=== PATIENT | female | born 1950 | race Caucasian/White ===

== ENCOUNTER 2020-04-22 17:29 | Outpatient (RCR) | payer MEDICARE, OTHER, SELFPAY | END 2020-04-22 23:59 | LOC: IMMUN 17:29 | PROVIDERS: PCP Family Medicine; Visit Provider Family Medicine | DX: Z23 Encounter for immunization (principal) | CPT/HCPCS: 0011A; 0012A ==

== ENCOUNTER 2022-08-19 19:55 | Inpatient (IN) | payer MEDICARE, OTHER, SELFPAY ==
[2022-08-19 20:33] VITALS: BP 124/55; PULSE 61; PULSE 62; RESP 20; TEMP 36.4; O2SAT 100; BMI 46.7
--- NOTE | 2022-08-19 22:29 | HP.PCM_ITS ---
[facility] - General General Date of Admission: 08/19/22 Date of Service: 08/20/22 Chief Complaint: Here for rehabilitation. HPI Narrative JORDYN ABEL, is a 71 Female who presents with following. 07/18/2022 Admit to [facility] with abdominal pain, nausea, vomiting. 71 year old female with history of Heart failure with reduced ejection fraction (35%), COPD on 3 liters oxygen, Type 2 Diabetes Mellitus, Mixed Hyperlipidemia, Hypertension, Morbid obesity who was managed at [facility] from 07/18/2022 to 08/18/2022 with an initial complaint of 2.5 months of progressively worsening intractable abdominal pain, nausea, and vomiting occurring postprandial with associated poor appetite/PO intake. CTA abdomen/pelvis revealed occlusion of celiac and SMA concerning for mesenteric ischemia and she underwent subsequent H-laparotomy with SMA thrombectomy. She was managed in the SICU post operation. While in the SICU, she was diagnosed with new onset atrial fibrillation and course was complicated by septic shock found to have Cronobacter sakazakii bacteremia. She was treated with pressors, fluids, and a two week course of IV Meropenem. Additionally, progressed to fluid overload, acidosis, anuria, with acute kidney injury leading to CRRT. Patient was stabilized and transferred to the general medical floor with imp rovement of acute kidney injury. 08/19/2022 Admit to TCU with debility, here for rehabilitation, strengthening, prior to discharge home with . [facility] Medical History (Updated 08/19/22 @ 22:[address] 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 Restless leg syndrome Septic shock Severe pulmonary hypertension Type 2 diabetes mellitus Home Medications albuterol 90 mcg/actuation aerosol inhaler 108 mcg inhalation Q6H PRN SOB, wheezing 08/19/22 [History Last Taken Unknown] allopurinol 100 mg tablet 100 mg PO DAILY Gout 08/19/22 [History Last Taken Unknown] apixaban 5 mg tablet 5 mg PO BID Anticoagulant 08/19/22 [History Last Taken 08/19/22] atorvastatin 40 mg tablet 40 mg PO .qevening Cholesterol 08/19/22 [History Last Taken 08/18/22] cholecalciferol (vitamin D3) 25 mcg (1,000 unit) capsule 25 mcg PO DAILY Supplement 08/19/22 [History Last Taken Unknown] clonazepam 0.5 mg tablet 0.25 mg PO QHS Sleep, anxiety 08/19/22 [History Last Taken 08/18/22] clopidogrel 75 mg tablet 75 mg PO DAILY Anticoagulant 08/19/22 [History Last Taken 08/19/22] ezetimibe 10 mg tablet 10 mg PO .qevening Diabetes 08/19/22 [History Last Taken Unknown] ferrous sulfate 325 mg (65 mg iron) tablet 325 mg PO QODAY Supplement 08/19/22 [History Last Taken 08/19/22] hydralazine 20 mg/mL injection solution 10 mg IV Q6H PRN hypertension 08/19/22 [History Last Taken Unknown] insulin glargine 100 unit/mL (3 mL) subcutaneous pen (Lantus Solostar U-100 Insulin) 10 unit subcut .qAM Diabetes 08/19/22 [History Last Taken 08/19/22] melatonin 3 mg tablet 3 mg PO QHS insomnia 08/19/22 [History Last Taken 08/18/22] metoprolol succinate 50 mg tablet,extended release 24 hr 50 mg PO DAILY Blood pressure 08/19/22 [History Last Taken 08/19/22] midodrine 2.5 mg tablet 2.5 mg PO DAILY PRN low blood pressure 08/19/22 [History Last Taken 08/17/22] nystatin 100,000 unit/gram topical cream 1 applic topical BID excoriation [History Last Taken 08/19/22] pantoprazole 40 mg tablet,delayed release 40 mg PO DAILY Stomach 08/19/22 [History Last Taken 08/19/22] paroxetine HCl 20 mg tablet 20 mg PO DAILY Anxiety 08/19/22 [History Last Taken 08/19/22] ropinirole 0.25 mg tablet 0.75 mg PO BID Restless legs 08/19/22 [History Last Taken 08/19/22] thiamine mononitrate (vit B1) 100 mg tablet 100 mg PO DAILY Supplement 08/19/22 [History Last Taken 08/19/22] tiotropium bromide 18 mcg capsule with inhalation device (Spiriva with HandiHaler) 1 cap inhalation DAILY SOB 08/19/22 [History Last Taken 08/19/22] torsemide 10 mg tablet 10 mg PO DAILY PRN Diuretic 08/19/22 [History Last Taken 08/16/22] Allergy/AdvReac Type Severity Reaction Status Date / Time Penicillins Allergy Hives Verified 04/22/20 09:31 Family History (Updated 08/20/22 @ 07:[address] Lencho Payan MD) Father , Head trauma. No problems noted. Mother , at 93. Diabetes Brother , at 71. Alzheimer disease Sister , at 67 of Stone disease No problems noted. Sister Heart disease Surgical History (Updated 08/19/22 @ 22:[address] Lencho Payan MD) History of laparotomy Social History (Updated 08/19/22 @ 22:[address] Lencho Payan MD) household members: spouse Smoking Status: Former smoker Tobacco: How many years used: 30 how long ago did patient quit smokin alcohol intake: never substance use type: does not use ROS Constitutional Constitutional: Denies chills, fever(s) or weight gain ENT HEENT: Denies headache(s), nasal congestion or nasal discharge Cardiovascular Cardiovascular: Denies chest pain or palpitations Respiratory/Chest Respiratory/Chest: Denies cough, excessive phlegm production or shortness of breath with exertion Gastrointestinal Gastrointestinal: Denies abdominal pain, nausea or vomiting Genitourinary Genitourinary: Denies dysuria Musculoskeletal Musculoskeletal: Denies joint pain or joint swelling Integumentary Integumentary: Denies rash or wounds Neurologic Neurologic: Denies focal weakness, numbness or tingling Psychiatric Psychiatric: Denies anxiety, auditory hallucinations, depression, homicidal ideation or suicidal ideation Physical Exam Const alert General Appearance: cooperative HEENT normocephalic Eyes PERRL and EOMs intact bilaterally Neck supple, no JVD and no carotid bruits Resp normal respiratory effort, normal air movement and clear to auscultation bilaterally Cardio regular rate and regular rhythm GI normal to inspection, nondistended, normoactive bowel sounds, non-tender and non-distended GI Narrative: Midline incision clean, dry, intact. Extremity normal capillary refill General Extremity: Negative for edema Skin no rashes or lesions noted General Skin Exam: no breakdown Psych affect normal Appearance: appropriate Results Lab / Micro Data 08/20/22 05:15 08/20/22 05:15 Assessment & Plan Assessment/Plan (1) Debility: (2) Mesenteric ischemia: (3) Occlusion of celiac artery: (4) Occlusion of superior mesenteric artery: (5) New onset atrial fibrillation: (6) Heart failure with reduced ejection fraction: (7) Septic shock: (8) Acute kidney injury: (9) Bacteremia: (10) Depression: (11) Restless leg syndrome: (12) Dyskinesia: (13) COPD (chronic obstructive pulmonary disease): (14) Obstructive sleep apnea: (15) Severe pulmonary hypertension: (16) Anemia in chronic kidney disease: (17) Essential (primary) hypertension: (18) Hyperlipidemia: (19) Type 2 diabetes mellitus: (20) Gout: (21) GERD (gastroesophageal reflux disease): PLAN: Plan 71 year old female with below past medical history hospitalized for mesenteric ischemia status post celiac/SMA thrombectomy, complicated by new onset atrial fibrillation, septic shock, bacteremia, acute kidney injury requiring CRRT, admitted to TCU with debility, here for rehabilitation, strengthening, prior to discharge home with . * Debility - PT/OT. * Pain - Tylenol 1000mg q6h prn pain (1-10). * Bowel - senna/colace 1 tablet bid, Magnesium citrate 300ml po x 1 prn. * Adult immunization - Administer pneumonia vaccine, covid19 vaccine, flu vaccine as appropriate. * DVT prophylaxis - on Eliquis. * COPD - Incruse 1 puff daily, Albuterol 1 puff q6h prn. * Gout - Allopurinol 100mg daily. * Atrial fibrillation - Metoprolol succinate 50mg daily, Eliquis 5mg bid. * Hyperlipidemia - Atorvastatin 40mg qhs, Zetia 10mg qhs. * Anxiety - Clonazepam 0.25mg qhs thru 08/21/2022, GDR. * PAOD - Plavix 75mg daily, Eliquis 5mg bid. * Iron deficiency anemia - Ferrous sulfate 325mg every other day. * Heart failure with reduced ejection fraction (35%) - Metoprolol succinate 50mg daily, Furosemide 20mg daily prn. * Diabetes Mellius II - Glargine 10 units daily. * Insomnia - Melatonin 3mg qhs. * Hypotension - Midodrine 2.5mg daily prn SBP < 100. * Tinea Corporis - Nystatin topical bid. * GERD - Pantoprazole 40mg daily. * Depression - Paroxetine 20mg daily, stable chronic residential use, GDR not recommended. * Restless leg syndrome - Mirapex 0.375mg bid. * Thiamine deficiency - Thiamine 100mg daily. * Vitamin D deficiency - D3 25mcg daily.
[2022-08-19] MEDS: clonazePAM 0.5 MG Tablet 0.25 MG PO (23:05)
[2022-08-19] MEDS: Ezetimibe 10 MG Tablet PO (23:06)
[2022-08-19] MEDS: Atorvastatin Calcium 40 MG Tablet PO (23:06)
[2022-08-19] MEDS: MELATONIN 3 MG TABLET PO (23:06)
[2022-08-19 23:40] LABS: Bedside Glucose 108 mg/dL (74-106)
--- NOTE | 2022-08-20 01:33 | NURSING ---
Pt arrived 08/19/22 @ 1954 accompanied by x2 EMS transport on 4L O2. Vitals WNL. Pt A&O x3, oriented to unit and paper work completed. States she would like her code status to be a DNRCC-A, No intubation.
[2022-08-20 06:00] LABS: Absolute Lymphocyte Count 1.03 X10^3/uL (0.83-4.51); Absolute Neutrophil Count 3.7 X10^3/uL (2.0-7.7); Basophil# 0.04 X10^3/uL; Basophil% 0.7 % (0-1); Eosinophil# 0.11 X10^3/uL; Hematocrit 26.8 % (37-47); Lymphocyte # 1.03 X10^3/ul (0.83-4.51); Lymphocyte % 18.3 % (19-41); Mean Corp Hgb Conc 29.9 g/dL (32-36); Mean Corpuscular Hgb 29.5 pg (27.0-32.0); Mean Corpuscular Volume 98.9 fL (81-99); Mean Platelet Vol. 10.4 fl (6.2-12.0); Monocyte# 0.74 X10^3/uL; Monocyte% 13.2 % (0-10); NRBC Flagged by Analyzer 0 % (0-5); Neutrophil # 3.68 X10^3/uL (2.7-7.7); Neutrophil % 65.4 % (47-70); POSITIVE MORPHOLOGY YES; Platelet Count 287 K/mm3 (150-450); RBC Distribution Width CV 20.5 % (11.6-14.6); RBC Distribution Width SD 71.6 fl (35.1-43.9); Red Blood Count 2.71 M/mm3 (4.2-5.4); White Blood Count 5.6 K/mm3 (4.4-11.0)
[2022-08-20 06:05] LABS: Differential Indicated SCAN CRITERIA MET
[2022-08-20 06:28] LABS: Bedside Glucose 114 mg/dL (74-106)
[2022-08-20 06:34] LABS: Anisocytosis 2+; Polychromasia 1+
[2022-08-20] MEDS: Allopurinol 100 MG Tablet PO (06:37)
[2022-08-20] MEDS: Cholecalciferol (VIT D3) 25 MCG TABLET (1,000 UNITS) PO (06:37)
[2022-08-20 06:38] VITALS: BP 128/44; PULSE 68
[2022-08-20] MEDS: Senna/Docusate Sodium 1 Tablet PO ×2 (06:38→17:19)
[2022-08-20] MEDS: Pantoprazole Sodium 40 MG Tablet PO (06:38)
[2022-08-20] MEDS: Pramipexole Di-HCl 0.25 MG Tablet 0.375 MG PO ×2 (06:38→17:19)
[2022-08-20] MEDS: Clopidogrel Bisulfate 75 MG Tablet PO (06:38)
[2022-08-20] MEDS: Paroxetine 20 MG Tablet PO (06:38)
[2022-08-20] MEDS: Metoprolol(XL)Succ 50 MG Tablet PO (06:38)
[2022-08-20] MEDS: Insulin Glargine-YFGN 100 UNIT/ML Pen 10 UNIT SC (06:39)
[2022-08-20] MEDS: Umeclidinium Bromide Inhaler 1 PUFF INHALATION (06:39)
[2022-08-20] MEDS: APIXABAN 5 MG TABLET PO ×2 (06:39→17:20)
[2022-08-20 06:41] LABS: Anion Gap 5 (5-15); BUN 37 mg/dL (7-18); BUN/Creat Ratio 26.6 RATIO (10-20); Calcium,Total 8.2 mg/dL (8.5-10.1); Chloride 111 mmol/L (98-107); Creatinine, Serum 1.39 mg/dL (0.55-1.02); EST Glomerular Filtration Rate 39 mL/min (>60); Est Glom Filt Rate - Afr Amer 48 mL/min (>60); Estimated Creatinine Clearance 28.51 ml/min; Glucose 111 mg/dL (74-106); Potassium 3.5 mmol/L (3.5-5.1); Sodium Level 143 mmol/L (136-145)
[2022-08-20 06:57] VITALS: BP 128/44; PULSE 68
[2022-08-20] MEDS: Thiamine Hydrochloride 100 MG Tablet PO (08:55)
[2022-08-20] MEDS: Nystatin Ointment 1 APPLIC TOPICAL ×2 (08:57→17:21)
[2022-08-20] MEDS: Tuberculin,Purif.prot.deriv. 50 TU/ML Vial 0.1 ML ID (09:05)
[2022-08-20 11:45] LABS: Bedside Glucose 165 mg/dL (74-106)
--- NOTE | 2022-08-20 12:17 | CASEMGMT ---
Social Work Met with patient to complete initial assessment. Introduced self and role. Discussed code status and MOLST form. Pt confirmed DNR_CCA, no intubation. MOLST form placed in Dr folder. Pt agreeable to have provide copies of advanced directives. Educated to Medicare benefit. Encouraged to contact secondary insurance to ensure copay coverage. Pt's goal is to return home with at [facility]. SW to continue to follow for DC planning. Laury Robert, SPECIMEN TECHNICIAN PLASTER BLOCK LAYER
--- NOTE | 2022-08-20 14:28 | WOUNDNOTE ---
wound photo: abdomen
[2022-08-20 15:16] VITALS: BP 106/67; PULSE 69; RESP 16; TEMP 36.5; O2SAT 94
[2022-08-20 16:27] LABS: Bedside Glucose 153 mg/dL (74-106)
[2022-08-20 20:55] VITALS: PULSE 68; RESP 18
[2022-08-20] MEDS: clonazePAM 0.5 MG Tablet 0.25 MG PO (21:36)
[2022-08-20] MEDS: Ezetimibe 10 MG Tablet PO (21:37)
[2022-08-20] MEDS: Atorvastatin Calcium 40 MG Tablet PO (21:37)
[2022-08-20] MEDS: MELATONIN 3 MG TABLET PO (21:37)
[2022-08-20 22:00] LABS: Bedside Glucose 129 mg/dL (74-106)
[2022-08-21 06:09] LABS: Absolute Lymphocyte Count 1.12 X10^3/uL (0.83-4.51); Basophil# 0.03 X10^3/uL; Basophil% 0.5 % (0-1); Eosinophil# 0.13 X10^3/uL; Eosinophils% 2.1 % (0-5); Hemoglobin 8.2 g/dL (12.0-15.0); Lymphocyte # 1.12 X10^3/ul (0.83-4.51); Lymphocyte % 18.4 % (19-41); Mean Corp Hgb Conc 30.4 g/dL (32-36); Mean Corpuscular Hgb 29.8 pg (27.0-32.0); Mean Corpuscular Volume 98.2 fL (81-99); Mean Platelet Vol. 10.8 fl (6.2-12.0); Monocyte# 0.76 X10^3/uL; Monocyte% 12.5 % (0-10); NRBC Flagged by Analyzer 0 % (0-5); Neutrophil # 4.01 X10^3/uL (2.7-7.7); POSITIVE MORPHOLOGY YES; Platelet Count 307 K/mm3 (150-450); RBC Distribution Width CV 19.7 % (11.6-14.6); RBC Distribution Width SD 69.7 fl (35.1-43.9); Red Blood Count 2.75 M/mm3 (4.2-5.4); White Blood Count 6.1 K/mm3 (4.4-11.0)
[2022-08-21 06:16] LABS: Differential Indicated SCAN CRITERIA MET
[2022-08-21] MEDS: Pramipexole Di-HCl 0.25 MG Tablet 0.375 MG PO ×2 (06:17→17:25)
[2022-08-21 06:18] VITALS: BP 123/46; PULSE 66
[2022-08-21] MEDS: Metoprolol(XL)Succ 50 MG Tablet PO (06:18)
[2022-08-21] MEDS: Senna/Docusate Sodium 1 Tablet PO ×2 (06:18→17:24)
[2022-08-21] MEDS: Cholecalciferol (VIT D3) 25 MCG TABLET (1,000 UNITS) PO (06:18)
[2022-08-21] MEDS: Paroxetine 20 MG Tablet PO (06:19)
[2022-08-21] MEDS: Pantoprazole Sodium 40 MG Tablet PO (06:19)
[2022-08-21] MEDS: APIXABAN 5 MG TABLET PO ×2 (06:19→17:24)
[2022-08-21] MEDS: Allopurinol 100 MG Tablet PO (06:19)
[2022-08-21] MEDS: Clopidogrel Bisulfate 75 MG Tablet PO (06:19)
[2022-08-21] MEDS: Umeclidinium Bromide Inhaler 1 PUFF INHALATION (06:19)
[2022-08-21] MEDS: Insulin Glargine-YFGN 100 UNIT/ML Pen 10 UNIT SC (06:19)
[2022-08-21] MEDS: Nystatin Ointment 1 APPLIC TOPICAL ×2 (06:20→17:25)
[2022-08-21 06:40] LABS: Anion Gap 4 (5-15); BUN 40 mg/dL (7-18); BUN/Creat Ratio 26.3 RATIO (10-20); Calcium,Total 8.2 mg/dL (8.5-10.1); Chloride 108 mmol/L (98-107); Creatinine, Serum 1.52 mg/dL (0.55-1.02); EST Glomerular Filtration Rate 36 mL/min (>60); Est Glom Filt Rate - Afr Amer 43 mL/min (>60); Estimated Creatinine Clearance 26.07 ml/min; Glucose 138 mg/dL (74-106); Potassium 3.7 mmol/L (3.5-5.1); Sodium Level 142 mmol/L (136-145)
[2022-08-21 06:42] LABS: Bedside Glucose 126 mg/dL (74-106)
[2022-08-21 06:55] VITALS: BP 123/46; PULSE 66
[2022-08-21 07:09] LABS: Anisocytosis 1+; Stomatocyte 1+
[2022-08-21] MEDS: Ferrous Sulfate 325 MG Tablet PO (07:55)
[2022-08-21] MEDS: Thiamine Hydrochloride 100 MG Tablet PO (07:55)
--- NOTE | 2022-08-21 08:47 | WOUNDNOTE ---
wound photo: right foot
--- NOTE | 2022-08-21 08:48 | WOUNDNOTE ---
wound photo: right foot
[2022-08-21 12:37] LABS: Bedside Glucose 134 mg/dL (74-106)
--- NOTE | 2022-08-21 12:42 | NS ---
Res does not have any food dislikes. Provided written copy of daily specials/first choice menu w/ instructions on how to order. MST score =2 d/t unknown UBW.
[2022-08-21 14:47] VITALS: PULSE 67; RESP 18; O2SAT 97
[2022-08-21 16:00] VITALS: BP 131/42; PULSE 68; RESP 18; TEMP 36.3; O2SAT 98
[2022-08-21 16:48] LABS: Bedside Glucose 109 mg/dL (74-106)
[2022-08-21] MEDS: clonazePAM 0.5 MG Tablet 0.25 MG PO (21:51)
[2022-08-21] MEDS: Ezetimibe 10 MG Tablet PO (21:53)
[2022-08-21] MEDS: Atorvastatin Calcium 40 MG Tablet PO (21:53)
[2022-08-21] MEDS: MELATONIN 3 MG TABLET PO (21:53)
--- NOTE | 2022-08-21 22:32 | NURSING ---
Abdominal wound dressing changed per order. Pt tolerated well.
[2022-08-21 23:27] LABS: Bedside Glucose 152 mg/dL (74-106)
[2022-08-22 06:15] VITALS: BP 130/50; PULSE 68
[2022-08-22] MEDS: Metoprolol(XL)Succ 50 MG Tablet PO (06:15)
[2022-08-22] MEDS: Cholecalciferol (VIT D3) 25 MCG TABLET (1,000 UNITS) PO (06:16)
[2022-08-22] MEDS: Clopidogrel Bisulfate 75 MG Tablet PO (06:16)
[2022-08-22] MEDS: Paroxetine 20 MG Tablet PO (06:16)
[2022-08-22] MEDS: Senna/Docusate Sodium 1 Tablet PO ×2 (06:16→17:00)
[2022-08-22] MEDS: Pantoprazole Sodium 40 MG Tablet PO (06:16)
[2022-08-22] MEDS: APIXABAN 5 MG TABLET PO ×2 (06:16→17:00)
[2022-08-22] MEDS: Pramipexole Di-HCl 0.25 MG Tablet 0.375 MG PO ×2 (06:16→17:01)
[2022-08-22] MEDS: Umeclidinium Bromide Inhaler 1 PUFF INHALATION (06:19)
[2022-08-22] MEDS: Nystatin Ointment 1 APPLIC TOPICAL ×2 (06:21→17:05)
[2022-08-22] MEDS: Insulin Glargine-YFGN 100 UNIT/ML Pen 10 UNIT SC (06:22)
[2022-08-22 06:24] LABS: Bedside Glucose 142 mg/dL (74-106)
[2022-08-22 06:57] LABS: Absolute Lymphocyte Count 1.05 X10^3/uL (0.83-4.51); Absolute Neutrophil Count 4.1 X10^3/uL (2.0-7.7); Basophil# 0.03 X10^3/uL; Basophil% 0.5 % (0-1); Eosinophil# 0.14 X10^3/uL; Eosinophils% 2.3 % (0-5); Hematocrit 27.3 % (37-47); Hemoglobin 7.9 g/dL (12.0-15.0); Lymphocyte # 1.05 X10^3/ul (0.83-4.51); Mean Corp Hgb Conc 28.9 g/dL (32-36); Mean Corpuscular Volume 100.4 fL (81-99); Monocyte# 0.87 X10^3/uL; Monocyte% 14.1 % (0-10); NRBC Flagged by Analyzer 0 % (0-5); Neutrophil # 4.05 X10^3/uL (2.7-7.7); Neutrophil % 65.6 % (47-70); POSITIVE MORPHOLOGY YES; Platelet Count 299 K/mm3 (150-450); RBC Distribution Width SD 68.9 fl (35.1-43.9); Red Blood Count 2.72 M/mm3 (4.2-5.4); White Blood Count 6.2 K/mm3 (4.4-11.0)
[2022-08-22 07:06] LABS: Differential Indicated SCAN CRITERIA MET
[2022-08-22 07:19] LABS: Anion Gap 5 (5-15); BUN 39 mg/dL (7-18); BUN/Creat Ratio 26.2 RATIO (10-20); Calcium,Total 8.6 mg/dL (8.5-10.1); Chloride 109 mmol/L (98-107); Creatinine, Serum 1.49 mg/dL (0.55-1.02); EST Glomerular Filtration Rate 36 mL/min (>60); Est Glom Filt Rate - Afr Amer 44 mL/min (>60); Glucose 147 mg/dL (74-106); Potassium 3.8 mmol/L (3.5-5.1); Sodium Level 141 mmol/L (136-145)
[2022-08-22] MEDS: Thiamine Hydrochloride 100 MG Tablet PO (08:16)
[2022-08-22] MEDS: Allopurinol 100 MG Tablet PO (08:17)
[2022-08-22 09:29] LABS: Anisocytosis 2+; Differential Comment SCANNED; Macrocytosis 1+; Microcytosis 1+
[2022-08-22 11:59] LABS: Bedside Glucose 133 mg/dL (74-106)
[2022-08-22 13:50] VITALS: BP 124/54; PULSE 68; RESP 16; TEMP 36.3; O2SAT 96
[2022-08-22 16:36] LABS: Bedside Glucose 137 mg/dL (74-106)
[2022-08-22] MEDS: Ezetimibe 10 MG Tablet PO (20:33)
[2022-08-22] MEDS: Atorvastatin Calcium 40 MG Tablet PO (20:34)
[2022-08-22] MEDS: MELATONIN 3 MG TABLET PO (20:34)
[2022-08-22 21:00] VITALS: O2SAT 94
[2022-08-22 21:56] LABS: Bedside Glucose 145 mg/dL (74-106)
[2022-08-23 05:01] LABS: Absolute Lymphocyte Count 1.14 X10^3/uL (0.83-4.51); Absolute Neutrophil Count 3.3 X10^3/uL (2.0-7.7); Basophil# 0.03 X10^3/uL; Basophil% 0.6 % (0-1); Eosinophil# 0.12 X10^3/uL; Eosinophils% 2.3 % (0-5); Hemoglobin 7.7 g/dL (12.0-15.0); Lymphocyte # 1.14 X10^3/ul (0.83-4.51); Lymphocyte % 21.6 % (19-41); Mean Corp Hgb Conc 28.5 g/dL (32-36); Mean Corpuscular Hgb 29.1 pg (27.0-32.0); Mean Corpuscular Volume 101.9 fL (81-99); Mean Platelet Vol. 10.8 fl (6.2-12.0); Monocyte# 0.66 X10^3/uL; Monocyte% 12.5 % (0-10); NRBC Flagged by Analyzer 0 % (0-5); Neutrophil % 62.4 % (47-70); POSITIVE MORPHOLOGY YES; Platelet Count 284 K/mm3 (150-450); RBC Distribution Width CV 18.6 % (11.6-14.6); RBC Distribution Width SD 69.3 fl (35.1-43.9); Red Blood Count 2.65 M/mm3 (4.2-5.4); White Blood Count 5.3 K/mm3 (4.4-11.0)
[2022-08-23 05:02] LABS: Differential Indicated SCAN CRITERIA MET
[2022-08-23 05:16] LABS: Anion Gap 6 (5-15); BUN 38 mg/dL (7-18); BUN/Creat Ratio 27.9 RATIO (10-20); Calcium,Total 8.5 mg/dL (8.5-10.1); Chloride 112 mmol/L (98-107); Creatinine, Serum 1.36 mg/dL (0.55-1.02); EST Glomerular Filtration Rate 40 mL/min (>60); Est Glom Filt Rate - Afr Amer 49 mL/min (>60); Estimated Creatinine Clearance 29.14 ml/min; Glucose 142 mg/dL (74-106); Potassium 3.7 mmol/L (3.5-5.1); Sodium Level 143 mmol/L (136-145)
[2022-08-23] MEDS: Umeclidinium Bromide Inhaler 1 PUFF INHALATION (05:46)
[2022-08-23] MEDS: Pramipexole Di-HCl 0.25 MG Tablet 0.375 MG PO ×2 (05:47→17:13)
[2022-08-23 05:48] VITALS: BP 137/51; PULSE 66
[2022-08-23] MEDS: Cholecalciferol (VIT D3) 25 MCG TABLET (1,000 UNITS) PO (05:48)
[2022-08-23] MEDS: Metoprolol(XL)Succ 50 MG Tablet PO (05:48)
[2022-08-23] MEDS: APIXABAN 5 MG TABLET PO ×2 (05:48→17:13)
[2022-08-23] MEDS: Paroxetine 20 MG Tablet PO (05:48)
[2022-08-23] MEDS: Clopidogrel Bisulfate 75 MG Tablet PO (05:49)
[2022-08-23] MEDS: Senna/Docusate Sodium 1 Tablet PO ×2 (05:49→17:14)
[2022-08-23] MEDS: Pantoprazole Sodium 40 MG Tablet PO (05:49)
[2022-08-23 05:51] LABS: Anisocytosis 2+; Macrocytosis 1+
[2022-08-23 05:52] LABS: Polychromasia RARE
[2022-08-23] MEDS: Insulin Glargine-YFGN 100 UNIT/ML Pen 10 UNIT SC (05:54)
[2022-08-23] MEDS: Nystatin Ointment 1 APPLIC TOPICAL ×2 (05:58→17:14)
[2022-08-23 06:14] LABS: Bedside Glucose 145 mg/dL (74-106)
[2022-08-23] MEDS: Allopurinol 100 MG Tablet PO (08:34)
[2022-08-23] MEDS: Thiamine Hydrochloride 100 MG Tablet PO (08:34)
[2022-08-23] MEDS: Ferrous Sulfate 325 MG Tablet PO (08:34)
[2022-08-23] MEDS: Acetaminophen 500 MG Tablet 1000 MG PO (09:38)
[2022-08-23 11:33] LABS: Bedside Glucose 150 mg/dL (74-106)
[2022-08-23 14:46] VITALS: BP 132/58; PULSE 65; RESP 18; TEMP 36.2; O2SAT 92
[2022-08-23 16:22] LABS: Bedside Glucose 126 mg/dL (74-106)
[2022-08-23 21:51] LABS: Bedside Glucose 135 mg/dL (74-106)
[2022-08-23] MEDS: Atorvastatin Calcium 40 MG Tablet PO (22:18)
[2022-08-23] MEDS: Ezetimibe 10 MG Tablet PO (22:18)
[2022-08-23] MEDS: MELATONIN 3 MG TABLET PO (22:18)
[2022-08-24] MEDS: Umeclidinium Bromide Inhaler 1 PUFF INHALATION (05:25)
[2022-08-24] MEDS: Pramipexole Di-HCl 0.25 MG Tablet 0.375 MG PO ×2 (05:26→18:12)
[2022-08-24] MEDS: Cholecalciferol (VIT D3) 25 MCG TABLET (1,000 UNITS) PO (05:26)
[2022-08-24 05:27] VITALS: BP 123/54; PULSE 69
[2022-08-24] MEDS: Paroxetine 20 MG Tablet PO (05:27)
[2022-08-24] MEDS: Metoprolol(XL)Succ 50 MG Tablet PO (05:27)
[2022-08-24] MEDS: APIXABAN 5 MG TABLET PO ×2 (05:27→18:12)
[2022-08-24] MEDS: Pantoprazole Sodium 40 MG Tablet PO (05:27)
[2022-08-24] MEDS: Clopidogrel Bisulfate 75 MG Tablet PO (05:27)
[2022-08-24] MEDS: Senna/Docusate Sodium 1 Tablet PO ×2 (05:27→18:12)
[2022-08-24] MEDS: Nystatin Ointment 1 APPLIC TOPICAL ×2 (05:29→18:14)
[2022-08-24 05:44] LABS: Absolute Lymphocyte Count 1.08 X10^3/uL (0.83-4.51); Absolute Neutrophil Count 3.5 X10^3/uL (2.0-7.7); Basophil# 0.04 X10^3/uL; Basophil% 0.7 % (0-1); Eosinophil# 0.15 X10^3/uL; Eosinophils% 2.7 % (0-5); Hematocrit 25.2 % (37-47); Hemoglobin 7.6 g/dL (12.0-15.0); Lymphocyte # 1.08 X10^3/ul (0.83-4.51); Lymphocyte % 19.6 % (19-41); Mean Corp Hgb Conc 30.2 g/dL (32-36); Mean Corpuscular Hgb 29.8 pg (27.0-32.0); Mean Corpuscular Volume 98.8 fL (81-99); Mean Platelet Vol. 10.8 fl (6.2-12.0); Monocyte# 0.69 X10^3/uL; Monocyte% 12.5 % (0-10); NRBC Flagged by Analyzer 0 % (0-5); Neutrophil # 3.53 X10^3/uL (2.7-7.7); Neutrophil % 64.3 % (47-70); Platelet Count 282 K/mm3 (150-450); RBC Distribution Width CV 18.3 % (11.6-14.6); RBC Distribution Width SD 64.6 fl (35.1-43.9); Red Blood Count 2.55 M/mm3 (4.2-5.4); White Blood Count 5.5 K/mm3 (4.4-11.0)
[2022-08-24 06:00] VITALS: BMI 47.3
[2022-08-24 06:12] LABS: Anion Gap 5 (5-15); BUN 36 mg/dL (7-18); BUN/Creat Ratio 26.9 RATIO (10-20); Calcium,Total 8.7 mg/dL (8.5-10.1); Chloride 110 mmol/L (98-107); Creatinine, Serum 1.34 mg/dL (0.55-1.02); EST Glomerular Filtration Rate 41 mL/min (>60); Est Glom Filt Rate - Afr Amer 50 mL/min (>60); Estimated Creatinine Clearance 29.57 ml/min; Glucose 138 mg/dL (74-106); Sodium Level 142 mmol/L (136-145)
[2022-08-24] MEDS: Insulin Glargine-YFGN 100 UNIT/ML Pen 10 UNIT SC (06:13)
[2022-08-24 06:40] LABS: Bedside Glucose 143 mg/dL (74-106)
[2022-08-24] MEDS: Allopurinol 100 MG Tablet PO (09:27)
[2022-08-24] MEDS: Thiamine Hydrochloride 100 MG Tablet PO (09:27)
[2022-08-24 11:35] LABS: Bedside Glucose 150 mg/dL (74-106)
--- NOTE | 2022-08-24 12:15 | NURSING ---
Audiovisual Equipment Operator Note; Activity Asset: Nargis Tam is independent in her choice of daily activities. When not visiting w/her family and friends she is resting, reading or watching tv. She welcomes visit from the therapy dog when able. At this time she prefers to do in room activities. Staff will continue to offer her group and in dependent activities and respect her right to say No.
--- NOTE | 2022-08-24 12:41 | NURSING ---
Offered covid BV booster, education on vaccine provided. Patient refuses at this time.
[2022-08-24 12:42] VITALS: O2SAT 95
[2022-08-24 14:22] VITALS: BP 122/20; PULSE 65; RESP 18; TEMP 36.1; O2SAT 100
--- NOTE | 2022-08-24 15:05 | WOUNDNOTE ---
wound photo: abdomen
[2022-08-24 16:51] LABS: Bedside Glucose 154 mg/dL (74-106)
[2022-08-24 20:30] VITALS: PULSE 74; RESP 20; O2SAT 96
[2022-08-24] MEDS: MELATONIN 3 MG TABLET PO (21:47)
[2022-08-24] MEDS: Ezetimibe 10 MG Tablet PO (21:47)
[2022-08-24] MEDS: Atorvastatin Calcium 40 MG Tablet PO (21:47)
[2022-08-24 22:44] LABS: Bedside Glucose 144 mg/dL (74-106)
[2022-08-25] MEDS: Cholecalciferol (VIT D3) 25 MCG TABLET (1,000 UNITS) PO (05:15)
[2022-08-25] MEDS: APIXABAN 5 MG TABLET PO ×2 (05:15→18:40)
[2022-08-25] MEDS: Clopidogrel Bisulfate 75 MG Tablet PO (05:15)
[2022-08-25] MEDS: Paroxetine 20 MG Tablet PO (05:15)
[2022-08-25 05:16] VITALS: BP 136/44; PULSE 67
[2022-08-25] MEDS: Pramipexole Di-HCl 0.25 MG Tablet 0.375 MG PO ×2 (05:16→18:40)
[2022-08-25] MEDS: Metoprolol(XL)Succ 50 MG Tablet PO (05:16)
[2022-08-25] MEDS: Senna/Docusate Sodium 1 Tablet PO ×2 (05:16→18:40)
[2022-08-25] MEDS: Pantoprazole Sodium 40 MG Tablet PO (05:16)
[2022-08-25] MEDS: Umeclidinium Bromide Inhaler 1 PUFF INHALATION (05:19)
[2022-08-25] MEDS: Insulin Glargine-YFGN 100 UNIT/ML Pen 10 UNIT SC (05:19)
[2022-08-25] MEDS: Nystatin Ointment 1 APPLIC TOPICAL ×2 (05:24→18:42)
[2022-08-25 05:48] LABS: Bedside Glucose 124 mg/dL (74-106)
[2022-08-25 06:00] VITALS: BMI 46.7
[2022-08-25 06:11] LABS: Absolute Lymphocyte Count 1.23 X10^3/uL (0.83-4.51); Absolute Neutrophil Count 3.1 X10^3/uL (2.0-7.7); Basophil# 0.04 X10^3/uL; Basophil% 0.7 % (0-1); Eosinophil# 0.15 X10^3/uL; Eosinophils% 2.8 % (0-5); Hematocrit 25.1 % (37-47); Hemoglobin 7.3 g/dL (12.0-15.0); Lymphocyte # 1.23 X10^3/ul (0.83-4.51); Mean Corp Hgb Conc 29.1 g/dL (32-36); Mean Corpuscular Volume 99.6 fL (81-99); Mean Platelet Vol. 11.1 fl (6.2-12.0); Monocyte# 0.75 X10^3/uL; NRBC Flagged by Analyzer 0 % (0-5); Neutrophil # 3.14 X10^3/uL (2.7-7.7); Neutrophil % 58.9 % (47-70); POSITIVE MORPHOLOGY YES; Platelet Count 282 K/mm3 (150-450); RBC Distribution Width CV 17.9 % (11.6-14.6); RBC Distribution Width SD 65.3 fl (35.1-43.9); Red Blood Count 2.52 M/mm3 (4.2-5.4); White Blood Count 5.3 K/mm3 (4.4-11.0)
[2022-08-25 06:42] LABS: Anion Gap 4 (5-15); BUN 36 mg/dL (7-18); BUN/Creat Ratio 27.9 RATIO (10-20); Calcium,Total 8.7 mg/dL (8.5-10.1); Chloride 111 mmol/L (98-107); Creatinine, Serum 1.29 mg/dL (0.55-1.02); EST Glomerular Filtration Rate 43 mL/min (>60); Est Glom Filt Rate - Afr Amer 52 mL/min (>60); Estimated Creatinine Clearance 30.72 ml/min; Glucose 126 mg/dL (74-106); Potassium 3.9 mmol/L (3.5-5.1); Sodium Level 142 mmol/L (136-145)
[2022-08-25 07:07] LABS: Differential Indicated SCAN CRITERIA MET
[2022-08-25 09:13] LABS: Anisocytosis 2+; Differential Comment SCANNED; Hypochromasia 1+; Macrocytosis 1+; Microcytosis 1+
[2022-08-25] MEDS: Thiamine Hydrochloride 100 MG Tablet PO (09:13)
[2022-08-25] MEDS: Allopurinol 100 MG Tablet PO (09:13)
[2022-08-25] MEDS: Ferrous Sulfate 325 MG Tablet PO (09:13)
[2022-08-25 11:50] LABS: Bedside Glucose 149 mg/dL (74-106)
[2022-08-25 14:20] VITALS: BP 140/56; PULSE 76; RESP 16; TEMP 36.4; O2SAT 94
[2022-08-25 17:43] LABS: Bedside Glucose 120 mg/dL (74-106)
[2022-08-25] MEDS: Furosemide 20 MG Tablet PO (18:40)
[2022-08-25] MEDS: Atorvastatin Calcium 40 MG Tablet PO (21:55)
[2022-08-25] MEDS: Ezetimibe 10 MG Tablet PO (21:55)
[2022-08-25] MEDS: MELATONIN 3 MG TABLET PO (21:55)
[2022-08-25 22:58] LABS: Bedside Glucose 122 mg/dL (74-106)
[2022-08-26] MEDS: Umeclidinium Bromide Inhaler 1 PUFF INHALATION (05:14)
[2022-08-26] MEDS: Pramipexole Di-HCl 0.25 MG Tablet 0.375 MG PO ×2 (05:15→17:26)
[2022-08-26] MEDS: Pantoprazole Sodium 40 MG Tablet PO (05:16)
[2022-08-26] MEDS: Cholecalciferol (VIT D3) 25 MCG TABLET (1,000 UNITS) PO (05:16)
[2022-08-26] MEDS: Clopidogrel Bisulfate 75 MG Tablet PO (05:16)
[2022-08-26] MEDS: Senna/Docusate Sodium 1 Tablet PO ×2 (05:16→17:26)
[2022-08-26] MEDS: APIXABAN 5 MG TABLET PO ×2 (05:16→17:26)
[2022-08-26] MEDS: Paroxetine 20 MG Tablet PO (05:16)
[2022-08-26 05:17] VITALS: BP 119/50; PULSE 72
[2022-08-26] MEDS: Metoprolol(XL)Succ 50 MG Tablet PO (05:17)
[2022-08-26 05:50] LABS: Absolute Neutrophil Count 3.6 X10^3/uL (2.0-7.7); Basophil# 0.03 X10^3/uL; Basophil% 0.5 % (0-1); Eosinophil# 0.15 X10^3/uL; Eosinophils% 2.6 % (0-5); Hematocrit 23.8 % (37-47); Hemoglobin 7.3 g/dL (12.0-15.0); Lymphocyte % 21.1 % (19-41); Mean Corp Hgb Conc 30.7 g/dL (32-36); Mean Corpuscular Hgb 29.9 pg (27.0-32.0); Mean Corpuscular Volume 97.5 fL (81-99); Monocyte# 0.64 X10^3/uL; Monocyte% 11.3 % (0-10); NRBC Flagged by Analyzer 0 % (0-5); Neutrophil # 3.64 X10^3/uL (2.7-7.7); Neutrophil % 64.1 % (47-70); Platelet Count 272 K/mm3 (150-450); Red Blood Count 2.44 M/mm3 (4.2-5.4); White Blood Count 5.7 K/mm3 (4.4-11.0)
[2022-08-26 06:00] VITALS: BMI 46.7
[2022-08-26] MEDS: Insulin Glargine-YFGN 100 UNIT/ML Pen 10 UNIT SC (06:39)
[2022-08-26 06:42] LABS: Anion Gap 4 (5-15); BUN 36 mg/dL (7-18); BUN/Creat Ratio 28.3 RATIO (10-20); Calcium,Total 9.1 mg/dL (8.5-10.1); Chloride 109 mmol/L (98-107); Creatinine, Serum 1.27 mg/dL (0.55-1.02); EST Glomerular Filtration Rate 44 mL/min (>60); Est Glom Filt Rate - Afr Amer 53 mL/min (>60); Glucose 121 mg/dL (74-106); Potassium 3.9 mmol/L (3.5-5.1); Sodium Level 141 mmol/L (136-145)
[2022-08-26 07:19] LABS: Bedside Glucose 125 mg/dL (74-106)
[2022-08-26 07:26] VITALS: O2SAT 98
[2022-08-26] MEDS: Allopurinol 100 MG Tablet PO (08:50)
[2022-08-26] MEDS: Thiamine Hydrochloride 100 MG Tablet PO (08:50)
[2022-08-26] MEDS: Nystatin Powder 15gm Bottle 1 APPLIC TOPICAL ×2 (08:53→17:29)
--- NOTE | 2022-08-26 09:17 | NURSING ---
Order for blood transfusion, type and cross ordered and completed. Order faxed to infusion center. Spoke with infusion center staff, they will transfuse patient tomorrow @[id number].
--- NOTE | 2022-08-26 10:19 | CASEMGMT ---
Social Work IDT met with patient and for care plan meeting. Discussed patient's progress in PT/OT/SN. Educated to Medicare benefit. Encouraged to contact secondary insurance to ensure copay coverage. Pt's goal is to DC home with . can provide CGA-min assist for ADLs. Pt will need further improvement to return home safely. Encouraged to participate in therapy training to ensure care at home. SW to continue to follow for DC planning. Laury Robert, [employer] POT LINING SUPERVISOR
[2022-08-26 11:43] LABS: Bedside Glucose 127 mg/dL (74-106)
--- NOTE | 2022-08-26 14:19 | WOUNDNOTE ---
wound photo: abdomen
[2022-08-26 14:33] VITALS: BP 128/50; PULSE 78; RESP 14; TEMP 36.2; O2SAT 98
--- NOTE | 2022-08-26 14:46 | PHA.CONS_ITS ---
Documented by User: Varsha Angeles 08/26/22 15:07 TCU RX Drug Regimen Review Subjective/Objective Subjective/Objective: Subjective: TCU Admission. 71 YOF presented to outside ER with abdominal pain, nausea and vomiting. Hospitalized for mesenteric ischemia status post celiac/SMA thrombectomy, complicated by new onset atrial fibrillation, septic shock, bacteremia, acute kidney injury requiring CRRT. Admitted to TCU with debility for strengthening and rehabilitation. Objective: Allergies Penicillins Allergy (Verified 04/22/20 09:31) Hives Current Medications Generic Name Dose Route Start Last Admin Trade Name Freq PRN Reason Stop Dose Admin Acetaminophen 1,000 mg 08/19/22 22:59 08/23/22 09:38 Acetaminophen 500 Mg Tablet PO 1,000 mg Q6H PRN PRN Administration Pain Score 1-10 Albuterol Sulfate 1 puff 08/19/22 21:56 Albuterol Ih (6.7 Gm) 1 Puff Inhaler INHALATION Q6H PRN PRN SHORTNESS OF BREATH Allopurinol 100 mg 08/22/22 08:00 08/26/22 08:50 Allopurinol 100 Mg Tablet PO 100 mg BREAKFAST JENIFFER Administration Apixaban 5 mg 08/20/22 06:00 08/26/22 05:16 Apixaban 5 Mg Tablet PO 5 mg BID JENIFFER Administration Atorvastatin Calcium 40 mg 08/19/22 22:00 08/25/22 21:55 Atorvastatin Calcium 40 Mg Tablet PO 40 mg QHS JENIFFER Administration Cholecalciferol 25 mcg 08/20/22 06:00 08/26/22 05:16 Cholecalciferol (Vit D3) 25 Mcg Tablet (1,000 Units) PO 25 mcg DAILY JENIFFER Administration Clopidogrel Bisulfate 75 mg 08/20/22 06:00 08/26/22 05:16 Clopidogrel Bisulfate 75 Mg Tablet PO 75 mg DAILY JENIFFER Administration Ezetimibe 10 mg 08/19/22 22:00 08/25/22 21:55 Ezetimibe 10 Mg Tablet PO 10 mg QHS JENIFFER Administration Ferrous Sulfate 325 mg 08/21/22 08:00 08/25/22 09:13 Ferrous Sulfate 325 Mg Tablet PO 325 mg QODAY@0800 JENIFFER Administration Furosemide 20 mg 08/19/22 21:59 08/25/22 18:40 Furosemide 20 Mg Tablet PO 20 mg DAILY PRN Administration FLUID OVERLOAD Insulin Glargine 10 unit 08/20/22 06:00 08/26/22 06:39 Insulin Glargine-Yfgn 100 Unit/Ml Pen SC 10 unit DAILY JENIFFER Administration Magnesium Citrate 300 ml 08/19/22 22:59 Magnesium Citrate 300 Ml PO X1 PRN Constipation Melatonin 3 mg 08/19/22 22:00 08/25/22 21:55 Melatonin 3 Mg Tablet PO 3 mg QHS JENIFFER Administration Metoprolol Succinate 50 mg 08/20/22 06:00 08/26/22 05:17 Metoprolol(Xl)Succ 50 Mg Tablet PO 50 mg DAILY JENIFFER Administration Midodrine 2.5 mg 08/19/22 22:15 Midodrine Hcl 5 Mg Tablet PO DAILY PRN PRN SBP <100 Nystatin 1 applic 08/26/22 10:00 08/26/22 08:53 Nystatin Powder 15gm Bottle TOPICAL 1 applic BID JENIFFER Administration Protocol Pantoprazole Sodium 40 mg 08/20/22 06:00 08/26/22 05:16 Pantoprazole Sodium 40 Mg Tablet PO 40 mg DAILY JENIFFER Administration Paroxetine HCl 20 mg 08/20/22 06:00 08/26/22 05:16 Paroxetine 20 Mg Tablet PO 20 mg DAILY JENIFFER Administration Pramipexole Dihydrochloride 0.375 mg 08/20/22 06:00 08/26/22 05:15 Pramipexole Di-Hcl 0.25 Mg Tablet PO 0.375 mg BID JENIFFER Administration Senna/Docusate Sodium 1 tablet 08/19/22 23:00 08/26/22 05:16 Senna/Docusate Sodium 1 Tablet PO 1 tablet BID JENIFFER Administration Thiamine HCl 100 mg 08/20/22 08:00 08/26/22 08:50 Thiamine Hydrochloride 100 Mg Tablet PO 100 mg BREAKFAST JENIFFER Administration Tuberculin PPD 0.1 ml 08/27/22 10:00 Tuberculin,Purif.Prot.Deriv. 50 Tu/Ml Vial ID 08/27/22 10:01 X1 ONE Umeclidinium [place] 1 puff 08/20/22 06:00 08/26/22 05:14 Umeclidinium [place] Inhaler INHALATION 1 puff DAILY JENIFFER Administration Problem List (Updated 08/19/22 @ 22:[address] Lencho Payan MD) GERD (gastroesophageal reflux disease) (Acute) Gout (Acute) Type 2 diabetes mellitus (Acute) Hyperlipidemia (Acute) Essential (primary) hypertension (Acute) Anemia in chronic kidney disease (Chronic) Severe pulmonary hypertension (Acute) Obstructive sleep apnea (Acute) COPD (chronic obstructive pulmonary disease) (Chronic) Dyskinesia (Acute) Restless leg syndrome (Acute) Depression (Acute) Bacteremia (Acute) Acute kidney injury (Acute) Septic shock (Acute) Heart failure with reduced ejection fraction (Acute) New onset atrial fibrillation (Acute) Occlusion of superior mesenteric artery (Acute) Occlusion of celiac artery (Acute) Mesenteric ischemia (Acute) Debility (Acute) Vital Signs Temp Pulse Resp BP Pulse Ox O2 Del Method O2 Flow Rate 97.2 F L 78 14 128/50 H 98 Nasal Cannula 3 08/26/22 14:33 08/26/22 14:33 08/26/22 14:33 08/26/22 14:33 08/26/22 14:33 08/26/22 14:33 08/26/22 14:33 Oxygen Flow Rate (L/min) 3 Oxygen Delivery Method Nasal Cannula Weight: 115.836 kg Body Mass Index (BMI) 46.7 Sodium 141 mmol/L (136-145) 08/26/22 05:10 Potassium 3.9 mmol/L (3.5-5.1) 08/26/22 05:10 Chloride 109 mmol/L (98-107) H 08/26/22 05:10 Carbon Dioxide 28.0 mmol/L (21.0-32.0) 08/26/22 05:10 Anion Gap 4 (5-15) L 08/26/22 05:10 BUN 36 mg/dL (7-18) H 08/26/22 05:10 Creatinine 1.27 mg/dL (0.55-1.02) H 08/26/22 05:10 Est GFR (MDRD) Af Amer 53 mL/min (>60) L 08/26/22 05:10 Est GFR (MDRD) Non-Af 44 mL/min (>60) L 08/26/22 05:10 BUN/Creatinine Ratio 28.3 RATIO (10-20) H 08/26/22 05:10 Glucose 121 mg/dL (74-106) H 08/26/22 05:10 Assessment/Plan: 1. Pain: acetaminophen 1000mg PO Q6H PRN pain 1-10. Resident has used 1 dose for a pain score of 6 in the head. Please continue to monitor for increased pain and PRN usage. 2. Bowel: senna/docusate 2T PO BID and magnesium citrate 300mL PO x1 PRN constipation. Resident has not used any PRN doses. Please continue to monitor constipation and PRN usage. Last documented bowel movement 08/24. 3. Atrial fibrillation/CHF/PAOD: metoprolol succinate 50mg PO daily, apixaban 5mg PO BID, clopidogrel 75mg PO daily and furosemide 20mg PO daily PRN fluid overload (Administer if weight increases 5lbs from baseline, if there is increasing O2 need, or if obvious worsened bilateral lower extremity edema.) Resident has used 1 dose of furosemide. Please continue to monitor BP (last 128/50), HR (last 78), S/S of bleeding, hemoglobin (last 7.3g/dL), potassium (last 3.9mmol/L) and edema. 4. Hypotension: midodrine 2.5mg PO daily PRN SBP <100. Resident has not received any doses. Please continue to monitor BP. 5. COPD: Incruse 1puff inhalation daily and albuterol MDI 1puff inhalation Q6H PRN SOB. Resident has not received any PRN doses. Please continue to monitor for PRN usage and SOB. 6. Diabetes Mellitus II: insulin glargine 10units SC daily. Please consider ordering a hemoglobin A1c as this resident does not have one in the chart. Thanks. Please continue to monitor glucose (last 127mg/dL) and S/S of hypoglycemia. 7. Hyperlipidemia: atorvastatin 40mg PO QHS and ezetimibe 10mg PO QHS. Please consider ordering a lipid panel and LFTs as resident does not have either in the chart. Thanks. Please continue to monitor for muscle pain. 8. Iron deficiency anemia: ferrous sulfate 325mg PO every other day. Please continue to monitor hemoglobin, dark stools and constipation. 9. Gout: allopurinol 100mg PO daily. Please continue to monitor for S/S of gout and renal function. 10. GERD: pantoprazole 40mg PO daily. Please continue to monitor for S/S of GERD and diarrhea (BEERs medication due to increased risk of C. diff infection). 11. Restless leg syndrome: pramipexole 0.375 mg PO BID. Please continue to monitor for S/S of restless legs. 12. Insomnia: melatonin 3mg PO QHS. Please continue to monitor for excessive drowsiness. 13. Thiamine and vitamin D deficiencies: thiamine 100mg PO daily and cholecalciferol 25mcg PO daily. Please consider ordering a vitamin D level as the resident does not have one in the chart. Thanks. Assessment/Plan for indications treated with psychotropic medications: 1. Depression: paroxetine 20mg PO daily. Please see physician note regarding GDR. Please continue to monitor for suicidal ideation (black box warning), dementia/delirium (BEERs medication), falls/fractures (BEERs medication), anticholinergic side effects (BEERs medication), sodium (last 141mmol/L) and GI side effects. Medical chart and medication regimen reviewed. The following medication irregularities or issues were identified: *1. Insulin glargine 10units SC daily. Please consider ordering a hemoglobin A1c as this resident does not have one in the chart. Thanks. *2. Atorvastatin 40mg PO QHS and ezetimibe 10mg PO QHS. Please consider ordering a lipid panel and LFTs as resident does not have either in the chart. Thanks. *3. Cholecalciferol 25mcg PO daily. Please consider ordering a vitamin D level as the resident does not have one in the chart. Thanks. Documented by User: Dr. Lencho Payan MD 08/26/22 14:58 TCU RX Drug Regimen Review Date Date of Note:: 08/26/22 Provider Comments Provider responsibility Provider Comments to Recommendations by Pharmacy: Agree
--- NOTE | 2022-08-26 16:36 | CASEMGMT ---
Social Work BIMS () and PHQ-9 () completed for MDS assessment. SW explored positive responses. Pt reports to trouble falling asleep and poor appetite. Pt agreeable to medication management. Pt expresses feeling as though she let her children down, not being able to do anything for them. SW provided emotional support. Offered aftercare resources. SW left written communication to Dr. Florian entered to ST d/t to report of daily diffculty with concentration. SW noted pt is also slow to respond and asks to repeat questions often. Laury Robert, [employer] REPRESENTATIVE COMPOSITION TILE LAYER
[2022-08-26 16:41] LABS: Bedside Glucose 120 mg/dL (74-106)
[2022-08-26 21:00] VITALS: O2SAT 91
[2022-08-26] MEDS: Atorvastatin Calcium 40 MG Tablet PO (21:18)
[2022-08-26] MEDS: MELATONIN 3 MG TABLET PO (21:18)
[2022-08-26] MEDS: Ezetimibe 10 MG Tablet PO (21:18)
[2022-08-26 21:23] LABS: Bedside Glucose 132 mg/dL (74-106)
[2022-08-27] MEDS: Pramipexole Di-HCl 0.25 MG Tablet 0.375 MG PO ×2 (05:20→17:20)
[2022-08-27] MEDS: Clopidogrel Bisulfate 75 MG Tablet PO (05:20)
[2022-08-27] MEDS: Umeclidinium Bromide Inhaler 1 PUFF INHALATION (05:20)
[2022-08-27 05:21] VITALS: BP 132/53; PULSE 68
[2022-08-27] MEDS: Paroxetine 20 MG Tablet PO (05:21)
[2022-08-27] MEDS: Metoprolol(XL)Succ 50 MG Tablet PO (05:21)
[2022-08-27] MEDS: APIXABAN 5 MG TABLET PO ×2 (05:21→17:20)
[2022-08-27] MEDS: Cholecalciferol (VIT D3) 25 MCG TABLET (1,000 UNITS) PO (05:21)
[2022-08-27] MEDS: Senna/Docusate Sodium 1 Tablet PO ×2 (05:21→17:20)
[2022-08-27] MEDS: Pantoprazole Sodium 40 MG Tablet PO (05:21)
[2022-08-27] MEDS: Nystatin Powder 15gm Bottle 1 APPLIC TOPICAL ×2 (05:22→17:21)
[2022-08-27 05:46] LABS: Absolute Lymphocyte Count 1.17 X10^3/uL (0.83-4.51); Absolute Neutrophil Count 3.5 X10^3/uL (2.0-7.7); Basophil# 0.03 X10^3/uL; Basophil% 0.6 % (0-1); Eosinophil# 0.12 X10^3/uL; Eosinophils% 2.2 % (0-5); Hematocrit 23.4 % (37-47); Hemoglobin 6.8 g/dL (12.0-15.0); Lymphocyte # 1.17 X10^3/ul (0.83-4.51); Lymphocyte % 21.6 % (19-41); Mean Corp Hgb Conc 29.1 g/dL (32-36); Mean Corpuscular Hgb 28.9 pg (27.0-32.0); Mean Corpuscular Volume 99.6 fL (81-99); Mean Platelet Vol. 10.9 fl (6.2-12.0); Monocyte% 11.1 % (0-10); NRBC Flagged by Analyzer 0 % (0-5); Neutrophil # 3.47 X10^3/uL (2.7-7.7); Neutrophil % 64.1 % (47-70); POSITIVE MORPHOLOGY YES; Platelet Count 280 K/mm3 (150-450); RBC Distribution Width CV 18.1 % (11.6-14.6); RBC Distribution Width SD 65.4 fl (35.1-43.9); Red Blood Count 2.35 M/mm3 (4.2-5.4); White Blood Count 5.4 K/mm3 (4.4-11.0)
[2022-08-27 05:50] LABS: Differential Indicated SCAN CRITERIA MET
[2022-08-27 06:00] VITALS: BMI 46.8
[2022-08-27 06:22] LABS: Anisocytosis 1+; Differential Comment SCANNED; Macrocytosis 1+
[2022-08-27 06:23] LABS: Anion Gap 4 (5-15); BUN 35 mg/dL (7-18); BUN/Creat Ratio 26.9 RATIO (10-20); Calcium,Total 8.9 mg/dL (8.5-10.1); Chloride 111 mmol/L (98-107); EST Glomerular Filtration Rate 43 mL/min (>60); Est Glom Filt Rate - Afr Amer 52 mL/min (>60); Estimated Creatinine Clearance 30.48 ml/min; Glucose 143 mg/dL (74-106); Sodium Level 144 mmol/L (136-145)
[2022-08-27] MEDS: Insulin Glargine-YFGN 100 UNIT/ML Pen 10 UNIT SC (06:41)
[2022-08-27 06:45] LABS: Bedside Glucose 126 mg/dL (74-106)
[2022-08-27] MEDS: Acetaminophen 500 MG Tablet 1000 MG PO (07:50)
[2022-08-27] MEDS: Allopurinol 100 MG Tablet PO (07:51)
[2022-08-27] MEDS: Ferrous Sulfate 325 MG Tablet PO (07:51)
[2022-08-27] MEDS: Thiamine Hydrochloride 100 MG Tablet PO (07:51)
[2022-08-27 09:01] VITALS: O2SAT 92
[2022-08-27] MEDS: Tuberculin,Purif.prot.deriv. 50 TU/ML Vial 0.1 ML ID (10:54)
[2022-08-27 16:00] VITALS: BP 143/55; PULSE 73; RESP 16; TEMP 36.7; O2SAT 99
[2022-08-27 22:09] LABS: Bedside Glucose 124 mg/dL (74-106)
[2022-08-27] MEDS: MELATONIN 3 MG TABLET PO (22:37)
[2022-08-27] MEDS: Ezetimibe 10 MG Tablet PO (22:37)
[2022-08-27] MEDS: Atorvastatin Calcium 40 MG Tablet PO (22:37)
[2022-08-28 05:44] LABS: Absolute Lymphocyte Count 1.27 X10^3/uL (0.83-4.51); Absolute Neutrophil Count 4.3 X10^3/uL (2.0-7.7); Basophil# 0.03 X10^3/uL; Basophil% 0.5 % (0-1); Eosinophil# 0.13 X10^3/uL; Hematocrit 28.4 % (37-47); Hemoglobin 8.6 g/dL (12.0-15.0); Lymphocyte # 1.27 X10^3/ul (0.83-4.51); Lymphocyte % 19.7 % (19-41); Mean Corp Hgb Conc 30.3 g/dL (32-36); Mean Corpuscular Hgb 29.1 pg (27.0-32.0); Mean Corpuscular Volume 95.9 fL (81-99); Mean Platelet Vol. 10.5 fl (6.2-12.0); Monocyte# 0.73 X10^3/uL; Monocyte% 11.3 % (0-10); NRBC Flagged by Analyzer 0 % (0-5); Neutrophil # 4.26 X10^3/uL (2.7-7.7); Platelet Count 254 K/mm3 (150-450); RBC Distribution Width CV 18.8 % (11.6-14.6); RBC Distribution Width SD 64.9 fl (35.1-43.9); Red Blood Count 2.96 M/mm3 (4.2-5.4); White Blood Count 6.5 K/mm3 (4.4-11.0)
[2022-08-28 06:00] VITALS: BMI 46.6
[2022-08-28] MEDS: Pramipexole Di-HCl 0.25 MG Tablet 0.375 MG PO ×2 (06:12→17:44)
[2022-08-28] MEDS: Clopidogrel Bisulfate 75 MG Tablet PO (06:12)
[2022-08-28] MEDS: Paroxetine 20 MG Tablet PO (06:12)
[2022-08-28 06:13] VITALS: BP 144/53; PULSE 71
[2022-08-28] MEDS: APIXABAN 5 MG TABLET PO ×2 (06:13→17:43)
[2022-08-28] MEDS: Pantoprazole Sodium 40 MG Tablet PO (06:13)
[2022-08-28] MEDS: Senna/Docusate Sodium 1 Tablet PO ×2 (06:13→17:45)
[2022-08-28] MEDS: Metoprolol(XL)Succ 50 MG Tablet PO (06:13)
[2022-08-28] MEDS: Nystatin Powder 15gm Bottle 1 APPLIC TOPICAL ×2 (06:13→17:45)
[2022-08-28] MEDS: Cholecalciferol (VIT D3) 25 MCG TABLET (1,000 UNITS) PO (06:13)
[2022-08-28] MEDS: Insulin Glargine-YFGN 100 UNIT/ML Pen 10 UNIT SC (06:14)
[2022-08-28] MEDS: Umeclidinium Bromide Inhaler 1 PUFF INHALATION (06:14)
[2022-08-28 06:27] LABS: Anion Gap 4 (5-15); BUN 34 mg/dL (7-18); BUN/Creat Ratio 27.6 RATIO (10-20); Calcium,Total 9.1 mg/dL (8.5-10.1); Chloride 110 mmol/L (98-107); Creatinine, Serum 1.23 mg/dL (0.55-1.02); EST Glomerular Filtration Rate 45 mL/min (>60); Est Glom Filt Rate - Afr Amer 55 mL/min (>60); Estimated Creatinine Clearance 32.22 ml/min; Glucose 136 mg/dL (74-106); Potassium 4.1 mmol/L (3.5-5.1); Sodium Level 143 mmol/L (136-145)
[2022-08-28 06:29] LABS: Bedside Glucose 138 mg/dL (74-106)
[2022-08-28] MEDS: Thiamine Hydrochloride 100 MG Tablet PO (07:58)
[2022-08-28] MEDS: Allopurinol 100 MG Tablet PO (07:58)
[2022-08-28] MEDS: Ascorbic Acid 500 MG Tablet PO (10:05)
[2022-08-28] MEDS: Iron Polysaccharide Complex 150 MG CAPSULE PO (10:05)
[2022-08-28 16:00] VITALS: BP 115/52; PULSE 73; RESP 16; TEMP 36.8; O2SAT 97
[2022-08-28 16:49] LABS: Bedside Glucose 137 mg/dL (74-106)
--- NOTE | 2022-08-28 17:03 | NURSING ---
UA done for patient having foul smelling cloudy urine and complaining of burning with voiding.
[2022-08-28 18:05] LABS: Mucous, Urine 0 SEEN /hpf (<or=2+)
[2022-08-28 18:54] LABS: Color, Urine Yellow (Yellow); Glucose, Dipstick Normal (Normal); Ketone-Dipstick Negative (Negative); Leukocyte Esterase-Dipstick 500 /ul (Negative); Nitrite-Dipstick Negative (Negative); Occult Blood-Urine 150 /ul (Negative); Protein-Dipstick 100 mg/dl (Negative); Urine Bilirubin Dipstick Negative (Negative); Urine Clarity Sl. Cloudy (Clear); Urine Urobilinogen Normal (Normal)
[2022-08-28 19:13] LABS: Amorphous Sediment 1+ URATE; Squamous Epithelial Cells - UA 0-5 SEEN /hpf (5-10)
[2022-08-28 19:16] LABS: Red Blood Cells-Urine 25-50 SEEN /hpf (0-5); White Blood Cells >100 SEEN /hpf (0-5)
[2022-08-28 19:17] LABS: Bacteria 1+ /hpf (None Seen)
[2022-08-28] MEDS: Ciprofloxacin 500 MG Tablet PO (21:42)
[2022-08-28] MEDS: Atorvastatin Calcium 40 MG Tablet PO (21:43)
[2022-08-28] MEDS: MELATONIN 3 MG TABLET PO (21:43)
[2022-08-28] MEDS: Ezetimibe 10 MG Tablet PO (21:43)
[2022-08-28 21:50] LABS: Bedside Glucose 129 mg/dL (74-106)
[2022-08-29] MEDS: Ciprofloxacin 500 MG Tablet PO ×2 (04:46→17:09)
[2022-08-29] MEDS: APIXABAN 5 MG TABLET PO ×2 (04:46→17:10)
[2022-08-29] MEDS: Pramipexole Di-HCl 0.25 MG Tablet 0.375 MG PO ×2 (04:47→17:09)
[2022-08-29] MEDS: Senna/Docusate Sodium 1 Tablet PO ×2 (04:48→17:09)
[2022-08-29] MEDS: Iron Polysaccharide Complex 150 MG CAPSULE PO (04:48)
[2022-08-29] MEDS: Clopidogrel Bisulfate 75 MG Tablet PO (04:48)
[2022-08-29 04:49] VITALS: BP 134/56; PULSE 74
[2022-08-29] MEDS: Metoprolol(XL)Succ 50 MG Tablet PO (04:49)
[2022-08-29] MEDS: Paroxetine 20 MG Tablet PO (04:49)
[2022-08-29] MEDS: Pantoprazole Sodium 40 MG Tablet PO (04:49)
[2022-08-29] MEDS: Cholecalciferol (VIT D3) 25 MCG TABLET (1,000 UNITS) PO (04:49)
[2022-08-29] MEDS: Umeclidinium Bromide Inhaler 1 PUFF INHALATION (04:52)
[2022-08-29] MEDS: 0.9% Saline Lock 10 ML Syringe IV ×2 (04:54→11:09)
[2022-08-29 05:00] VITALS: BMI 46.3
[2022-08-29 06:33] LABS: Bedside Glucose 140 mg/dL (74-106)
[2022-08-29] MEDS: Insulin Glargine-YFGN 100 UNIT/ML Pen 10 UNIT SC (07:04)
[2022-08-29] MEDS: Nystatin Powder 15gm Bottle 1 APPLIC TOPICAL ×2 (07:05→17:10)
[2022-08-29 07:20] VITALS: O2SAT 90
[2022-08-29] MEDS: Allopurinol 100 MG Tablet PO (07:49)
[2022-08-29] MEDS: Thiamine Hydrochloride 100 MG Tablet PO (07:49)
[2022-08-29] MEDS: Ascorbic Acid 500 MG Tablet PO (07:49)
[2022-08-29] MEDS: Acetaminophen 500 MG Tablet 1000 MG PO (11:08)
[2022-08-29 11:14] LABS: Bedside Glucose 177 mg/dL (74-106)
[2022-08-29 11:33] VITALS: PULSE 72; RESP 19; O2SAT 92
[2022-08-29 14:04] VITALS: BP 127/74; PULSE 69; RESP 19; TEMP 35.9; O2SAT 94
[2022-08-29 16:46] LABS: Bedside Glucose 144 mg/dL (74-106)
[2022-08-29 21:27] LABS: Bedside Glucose 135 mg/dL (74-106)
[2022-08-29] MEDS: Ezetimibe 10 MG Tablet PO (21:28)
[2022-08-29] MEDS: MELATONIN 3 MG TABLET PO (21:28)
[2022-08-29] MEDS: Atorvastatin Calcium 40 MG Tablet PO (21:28)
[2022-08-30] MEDS: Pramipexole Di-HCl 0.25 MG Tablet 0.375 MG PO ×2 (05:26→17:40)
[2022-08-30] MEDS: Acetaminophen 500 MG Tablet 1000 MG PO (05:26)
[2022-08-30] MEDS: Clopidogrel Bisulfate 75 MG Tablet PO (05:26)
[2022-08-30] MEDS: Cholecalciferol (VIT D3) 25 MCG TABLET (1,000 UNITS) PO (05:26)
[2022-08-30] MEDS: Umeclidinium Bromide Inhaler 1 PUFF INHALATION (05:26)
[2022-08-30] MEDS: Ciprofloxacin 500 MG Tablet PO ×2 (05:27→17:41)
[2022-08-30] MEDS: Pantoprazole Sodium 40 MG Tablet PO (05:27)
[2022-08-30] MEDS: Senna/Docusate Sodium 1 Tablet PO (05:27)
[2022-08-30 05:28] VITALS: BP 137/52; PULSE 66
[2022-08-30] MEDS: Paroxetine 20 MG Tablet PO (05:28)
[2022-08-30] MEDS: Iron Polysaccharide Complex 150 MG CAPSULE PO (05:28)
[2022-08-30] MEDS: APIXABAN 5 MG TABLET PO (05:28)
[2022-08-30] MEDS: Metoprolol(XL)Succ 50 MG Tablet PO (05:28)
[2022-08-30 06:00] VITALS: BMI 46.5
[2022-08-30 06:02] VITALS: BP 137/52; PULSE 66
[2022-08-30 06:28] LABS: Bedside Glucose 150 mg/dL (74-106)
[2022-08-30 06:55] VITALS: O2SAT 90
[2022-08-30] MEDS: Nystatin Powder 15gm Bottle 1 APPLIC TOPICAL ×2 (06:56→17:41)
[2022-08-30] MEDS: Insulin Glargine-YFGN 100 UNIT/ML Pen 10 UNIT SC (06:57)
[2022-08-30 07:27] LABS: Hematocrit 27.4 % (37-47); Hemoglobin 8.4 g/dL (12.0-15.0)
[2022-08-30] MEDS: Ascorbic Acid 500 MG Tablet PO (07:38)
[2022-08-30] MEDS: Magnesium Citrate 300 ML PO (07:38)
[2022-08-30] MEDS: Thiamine Hydrochloride 100 MG Tablet PO (07:38)
[2022-08-30] MEDS: Allopurinol 100 MG Tablet PO (07:38)
[2022-08-30 11:21] LABS: Bedside Glucose 174 mg/dL (74-106)
[2022-08-30 14:23] VITALS: BP 121/54; PULSE 65; RESP 15; TEMP 36.3; O2SAT 99
[2022-08-30 16:39] LABS: Bedside Glucose 133 mg/dL (74-106)
--- NOTE | 2022-08-30 17:50 | NURSING ---
RN on unit paged Dr. Payan, New orders- Hold Eliquis until further notice, consult Dr. Resendez non urgent.
[2022-08-30 19:47] LABS: Platelet Count 251 K/mm3 (150-450); RET-HE 30.9 pg (30-35); Reticulocyte Count 4.47 % (0.5-1.5)
[2022-08-30 20:04] LABS: Ferritin 115 ng/mL (8-252); Iron 29 ug/dL (50-170); Iron Binding Capacity,Total 273 ug/dL (250-450); PERCENT IRON SATURATION 10.6 % (15.0-55.0)
[2022-08-30] MEDS: Ezetimibe 10 MG Tablet PO (21:27)
[2022-08-30] MEDS: MELATONIN 3 MG TABLET PO (21:27)
[2022-08-30] MEDS: Atorvastatin Calcium 40 MG Tablet PO (21:27)
[2022-08-30 21:30] VITALS: PULSE 76; RESP 18; O2SAT 97
[2022-08-30 21:49] LABS: Bedside Glucose 130 mg/dL (74-106)
[2022-08-31] MEDS: Umeclidinium Bromide Inhaler 1 PUFF INHALATION (05:37)
[2022-08-31] MEDS: Iron Polysaccharide Complex 150 MG CAPSULE PO (05:37)
[2022-08-31] MEDS: Ciprofloxacin 500 MG Tablet PO ×2 (05:37→17:54)
[2022-08-31] MEDS: Paroxetine 20 MG Tablet PO (05:37)
[2022-08-31 05:38] VITALS: BP 122/49; PULSE 68
[2022-08-31] MEDS: Pramipexole Di-HCl 0.25 MG Tablet 0.375 MG PO ×2 (05:38→17:53)
[2022-08-31] MEDS: Senna/Docusate Sodium 1 Tablet PO ×2 (05:38→17:53)
[2022-08-31] MEDS: Metoprolol(XL)Succ 50 MG Tablet PO (05:38)
[2022-08-31] MEDS: Clopidogrel Bisulfate 75 MG Tablet PO (05:38)
[2022-08-31] MEDS: Cholecalciferol (VIT D3) 25 MCG TABLET (1,000 UNITS) PO (05:38)
[2022-08-31] MEDS: Pantoprazole Sodium 40 MG Tablet PO (05:38)
[2022-08-31] MEDS: Nystatin Powder 15gm Bottle 1 APPLIC TOPICAL ×2 (05:39→17:55)
[2022-08-31 06:00] VITALS: BMI 46.7
[2022-08-31 06:17] VITALS: BP 122/49; PULSE 68
[2022-08-31 06:31] LABS: Bedside Glucose 132 mg/dL (74-106)
[2022-08-31 06:45] VITALS: O2SAT 96
[2022-08-31] MEDS: Insulin Glargine-YFGN 100 UNIT/ML Pen 10 UNIT SC (06:45)
[2022-08-31] MEDS: Allopurinol 100 MG Tablet PO (08:55)
[2022-08-31] MEDS: Ascorbic Acid 500 MG Tablet PO (08:55)
[2022-08-31] MEDS: Thiamine Hydrochloride 100 MG Tablet PO (08:55)
[2022-08-31 11:04] LABS: Bedside Glucose 187 mg/dL (74-106)
[2022-08-31 13:43] VITALS: BP 124/59; PULSE 64; RESP 16; TEMP 36.2; O2SAT 95
--- NOTE | 2022-08-31 14:06 | WOUNDNOTE ---
wound photo: abdomen
[2022-08-31 17:02] LABS: Bedside Glucose 152 mg/dL (74-106)
--- NOTE | 2022-08-31 18:11 | CON.PCM.GI_ITS ---
HPI Consult Data Date of Consult: 08/31/22 HPI Narrative Reason for Consultation: Anemia HPI Narrative: JORDYN ABEL, is a 71 F with a past medical history of morbid obesity, diastolic heart failure with ejection fraction of 35%, type 2 diabetes, hyperlipidemia, hypertension and COPD on 2 to 4 L of oxygen at baseline. She initially presented to an outside hospital with worsening abdominal distention, abdominal pain. She underwent an upper endoscopy and was discovered to have ischemic injury in her stomach and duodenum. 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 She underwent an emergent thrombectomy by vascular surgery. She was placed on heparin therapy and transition to Eliquis. Because of her history of CAD she was taking 81 mg of aspirin prior to her being on Eliquis. Also she was given heparin prior to her undergone thrombectomy. During her hospital stay she was also diagnosed with septic shock secondary to gram-negative bacteremia. From the septic shock she developed acute prerenal azotemia resulting in the need for temporary renal replacement therapy. She was able to be transition off of renal replacement therapy. She was transferred to the TCU. Since being in the TCU her hemoglobin has decreased and she has been, little bit more short of breath. I was consulted and regarding the patient's anemia. [facility] Medical History (Updated 08/31/22 @ 18:[address] 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 Restless leg syndrome Septic shock Severe pulmonary hypertension Type 2 diabetes mellitus Home Medications albuterol 90 mcg/actuation aerosol inhaler 108 mcg inhalation Q6H PRN SOB, wheezing 08/19/22 [History Last Taken Unknown] allopurinol 100 mg tablet 100 mg PO DAILY Gout 08/19/22 [History Last Taken Unknown] apixaban 5 mg tablet 5 mg PO BID Anticoagulant 08/19/22 [History Last Taken 08/19/22] atorvastatin 40 mg tablet 40 mg PO .qevening Cholesterol 08/19/22 [History Last Taken 08/18/22] cholecalciferol (vitamin D3) 25 mcg (1,000 unit) capsule 25 mcg PO DAILY Supplement 08/19/22 [History Last Taken Unknown] clonazepam 0.5 mg tablet 0.25 mg PO QHS Sleep, anxiety 08/19/22 [History Last Taken 08/18/22] clopidogrel 75 mg tablet 75 mg PO DAILY Anticoagulant 08/19/22 [History Last Taken 08/19/22] ezetimibe 10 mg tablet 10 mg PO .qevening Diabetes 08/19/22 [History Last Taken Unknown] ferrous sulfate 325 mg (65 mg iron) tablet 325 mg PO QODAY Supplement 08/19/22 [History Last Taken 08/19/22] hydralazine 20 mg/mL injection solution 10 mg IV Q6H PRN hypertension 08/19/22 [History Last Taken Unknown] insulin glargine 100 unit/mL (3 mL) subcutaneous pen (Lantus Solostar U-100 Insulin) 10 unit subcut .qAM Diabetes 08/19/22 [History Last Taken 08/19/22] melatonin 3 mg tablet 3 mg PO QHS insomnia 08/19/22 [History Last Taken 08/18/22] metoprolol succinate 50 mg tablet,extended release 24 hr 50 mg PO DAILY Blood pressure 08/19/22 [History Last Taken 08/19/22] midodrine 2.5 mg tablet 2.5 mg PO DAILY PRN low blood pressure 08/19/22 [History Last Taken 08/17/22] nystatin 100,000 unit/gram topical cream 1 applic topical BID excoriation 08/19/22 [History Last Taken 08/19/22] pantoprazole 40 mg tablet,delayed release 40 mg PO DAILY Stomach 08/19/22 [History Last Taken 08/19/22] paroxetine HCl 20 mg tablet 20 mg PO DAILY Anxiety 08/19/22 [History Last Taken 08/19/22] ropinirole 0.25 mg tablet 0.75 mg PO BID Restless legs 08/19/22 [History Last Taken 08/19/22] thiamine mononitrate (vit B1) 100 mg tablet 100 mg PO DAILY Supplement 08/19/22 [History Last Taken 08/19/22] tiotropium bromide 18 mcg capsule with inhalation device (Spiriva with HandiHaler) 1 cap inhalation DAILY SOB 08/19/22 [History Last Taken 08/19/22] torsemide 10 mg tablet 10 mg PO DAILY PRN Diuretic 06/28/23 [History Last Taken 08/16/22] Allergy/AdvReac Type Severity Reaction Status Date / Time Penicillins Allergy Hives Verified 04/22/20 09:31 Family History (Updated 08/20/22 @ 07:[address] Lencho Payan MD) Father , Head trauma. No problems noted. Mother , at 93. Diabetes Brother , at 71. Alzheimer disease Sister , at 67 of Stone disease No problems noted. Sister Heart disease Surgical History (Updated 08/19/22 @ 22:[address] Lencho Payan MD) History of laparotomy Social History (Updated 08/19/22 @ 22:[address] Lencho Payan MD) household members: spouse Smoking Status: Former smoker Tobacco: How many years used: 30 how long ago did patient quit smokin alcohol intake: never substance use type: does not use ROS Constitutional Constitutional: Denies chills, fever(s) or weight gain ENT HEENT: Denies headache(s), nasal congestion or nasal discharge Cardiovascular Cardiovascular: Denies chest pain or palpitations Respiratory/Chest Respiratory/Chest: Denies cough, excessive phlegm production or shortness of breath with exertion Gastrointestinal Gastrointestinal: Denies abdominal pain, nausea or vomiting Genitourinary Genitourinary: Denies dysuria Musculoskeletal Musculoskeletal: Denies joint pain or joint swelling Integumentary Integumentary: Denies rash or wounds Neurologic Neurologic: Denies focal weakness, numbness or tingling Psychiatric Psychiatric: Denies anxiety, auditory hallucinations, depression, homicidal ideation or suicidal ideation Physical Exam Const alert General Appearance: cooperative HEENT normocephalic Eyes PERRL and EOMs intact bilaterally Neck supple, no JVD and no carotid bruits Resp normal respiratory effort, normal air movement and clear to auscultation bilaterally Cardio regular rate and regular rhythm GI normal to inspection, nondistended, normoactive bowel sounds, non-tender and non-distended GI Narrative: Midline incision clean, dry, intact. Extremity normal capillary refill General Extremity: Negative for edema Skin no rashes or lesions noted General Skin Exam: no breakdown Psych affect normal Appearance: appropriate Lab / Micro Data 08/30/22 06:45 08/28/22 05:14 Labs: Laboratory Results - last 24 hr 08/30/22 06:45: Retic Count 4.47 H, Immature Retic Fraction 30.60 H, Retic Hgb Equivalent 30.9, Iron 29 L, TIBC 273, Iron Saturation 10.6 L, Ferritin 115 08/30/22 21:29: POC Glucose 130 H 08/31/22 06:08: POC Glucose 132 H 08/31/22 10:45: POC Glucose 187 H 08/31/22 16:26: POC Glucose 152 H Micro: Microbiology 08/28/22 15:50 Urine, Catheterized Urine Culture - Final Klebsiella pneumoniae sp pneum Escherichia coli Assessment & Plan Assessment/Plan (1) Anemia: PLAN: Anemia chronic disease secondary to multiple comorbidities with CHF and recent SMA thrombosis with thrombectomy. She is currently on anticoagulation. She should undergo an upper endoscopy with upper tract. She also takes vitamin C and pramipexole, clopidogrel for her congestive heart failure. The patient and the patient's agreed to undergo upper endoscopy. They were explained alternatives, risk, benefits include not withstanding bleeding, infection, sepsis, perforation, need for emergent surgery . She will have an ASA of 3. Consultation took approximately 35 minutes reviewing the patient's past diagnosis and possible future diagnosis along with the plan. Charges/Coding Visit Charges Inpatient E&M: 74568 SNF Init L2
[2022-08-31 20:30] VITALS: O2SAT 93
[2022-08-31 21:20] LABS: Bedside Glucose 186 mg/dL (74-106)
[2022-08-31] MEDS: Ezetimibe 10 MG Tablet PO (21:29)
[2022-08-31] MEDS: MELATONIN 3 MG TABLET PO (21:29)
[2022-08-31] MEDS: Atorvastatin Calcium 40 MG Tablet PO (21:29)
[2022-09-01 04:07] LABS: Transferrin 190 mg/dL (192-364)
[2022-09-01 05:50] LABS: Hematocrit 25.4 % (37-47); Hemoglobin 7.7 g/dL (12.0-15.0)
[2022-09-01 06:00] VITALS: BMI 47.0
[2022-09-01 06:41] LABS: Bedside Glucose 136 mg/dL (74-106)
--- NOTE | 2022-09-01 08:23 | MDS.RN ---
Information for the mds was obtained from review of the clinical record, interview of resident, staff, and direct observation of resident's care.
--- NOTE | 2022-09-01 08:31 | ED.RN ---
PT IS NPO FOR EGD WITH DR. AMAYA TODAY. PT RESTING COMFORTABLY.
[2022-09-01 09:15] VITALS: O2SAT 93
[2022-09-01 12:10] LABS: Bedside Glucose 140 mg/dL (74-106)
[2022-09-01 12:13] VITALS: BMI 47.3
--- NOTE | 2022-09-01 14:13 | NURSING ---
PT LEFT FLOOR AT 1405 BY BED FOR PROCEDURE WITH .
--- NOTE | 2022-09-01 18:22 | NURSING ---
pt returned to floor by bed from egd. see new reports and orders.
[2022-09-01 18:43] VITALS: BP 90/58; PULSE 74; RESP 18; TEMP 36.6; O2SAT 93
[2022-09-01 18:44] VITALS: BP 90/58; PULSE 74
[2022-09-01 18:52] LABS: Bedside Glucose 137 mg/dL (74-106)
[2022-09-01] MEDS: Umeclidinium Bromide Inhaler 1 PUFF INHALATION (18:53)
[2022-09-01] MEDS: Iron Polysaccharide Complex 150 MG CAPSULE PO (18:54)
[2022-09-01] MEDS: Ciprofloxacin 500 MG Tablet PO (18:54)
[2022-09-01] MEDS: Pantoprazole Sodium 40 MG Tablet PO (18:54)
[2022-09-01] MEDS: Ascorbic Acid 500 MG Tablet PO (18:55)
[2022-09-01] MEDS: Paroxetine 20 MG Tablet PO (18:55)
[2022-09-01] MEDS: Senna/Docusate Sodium 1 Tablet PO (18:55)
[2022-09-01] MEDS: Cholecalciferol (VIT D3) 25 MCG TABLET (1,000 UNITS) PO (18:56)
[2022-09-01] MEDS: Thiamine Hydrochloride 100 MG Tablet PO (18:57)
[2022-09-01] MEDS: Allopurinol 100 MG Tablet PO (18:58)
[2022-09-01] MEDS: Pramipexole Di-HCl 0.25 MG Tablet 0.375 MG PO (18:58)
[2022-09-01] MEDS: Ezetimibe 10 MG Tablet PO (20:11)
[2022-09-01] MEDS: Sucralfate 1 GM Tablet PO (20:11)
[2022-09-01] MEDS: MELATONIN 3 MG TABLET PO (20:12)
[2022-09-01] MEDS: Atorvastatin Calcium 40 MG Tablet PO (20:12)
[2022-09-01] MEDS: Nystatin Powder 15gm Bottle 1 APPLIC TOPICAL (20:21)
[2022-09-01 21:48] LABS: Bedside Glucose 180 mg/dL (74-106)
[2022-09-01 22:15] VITALS: O2SAT 92
[2022-09-02] MEDS: Pramipexole Di-HCl 0.25 MG Tablet 0.375 MG PO ×2 (05:27→17:14)
[2022-09-02] MEDS: Umeclidinium Bromide Inhaler 1 PUFF INHALATION (05:27)
[2022-09-02] MEDS: Clopidogrel Bisulfate 75 MG Tablet PO (05:28)
[2022-09-02] MEDS: Senna/Docusate Sodium 1 Tablet PO ×2 (05:28→17:14)
[2022-09-02] MEDS: Paroxetine 20 MG Tablet PO (05:28)
[2022-09-02] MEDS: Pantoprazole Sodium 40 MG Tablet PO ×2 (05:28→17:14)
[2022-09-02] MEDS: Ciprofloxacin 500 MG Tablet PO ×2 (05:28→17:14)
[2022-09-02 05:29] VITALS: BP 139/54; PULSE 65
[2022-09-02] MEDS: Metoprolol(XL)Succ 25 MG Tablet PO (05:29)
[2022-09-02] MEDS: Sucralfate 1 GM Tablet PO ×3 (05:29→16:14)
[2022-09-02] MEDS: Cholecalciferol (VIT D3) 25 MCG TABLET (1,000 UNITS) PO (05:29)
[2022-09-02] MEDS: Nystatin Powder 15gm Bottle 1 APPLIC TOPICAL ×2 (05:32→17:15)
[2022-09-02] MEDS: Iron Polysaccharide Complex 150 MG CAPSULE PO (05:32)
[2022-09-02 05:38] LABS: Hematocrit 24.9 % (37-47); Hemoglobin 7.7 g/dL (12.0-15.0); Mean Corp Hgb Conc 30.9 g/dL (32-36); Mean Corpuscular Hgb 30.2 pg (27.0-32.0); Mean Corpuscular Volume 97.6 fL (81-99); Mean Platelet Vol. 10.1 fl (6.2-12.0); POSITIVE MORPHOLOGY YES; Platelet Count 236 K/mm3 (150-450); RBC Distribution Width CV 18.1 % (11.6-14.6); RBC Distribution Width SD 65.2 fl (35.1-43.9); Red Blood Count 2.55 M/mm3 (4.2-5.4); White Blood Count 7.2 K/mm3 (4.4-11.0)
[2022-09-02 05:39] LABS: Absolute Lymphocyte Count 1.31 X10^3/uL (0.83-4.51); Absolute Neutrophil Count 4.7 X10^3/uL (2.0-7.7); Basophil# 0.02 X10^3/uL; Basophil% 0.3 % (0-1); Differential Indicated SCAN CRITERIA MET; Eosinophil# 0.14 X10^3/uL; Lymphocyte # 1.31 X10^3/ul (0.83-4.51); Lymphocyte % 18.3 % (19-41); Monocyte# 0.93 X10^3/uL; NRBC Flagged by Analyzer 0 % (0-5); Neutrophil # 4.73 X10^3/uL (2.7-7.7); Neutrophil % 65.8 % (47-70)
[2022-09-02] MEDS: Furosemide 20 MG Tablet PO (05:45)
[2022-09-02 06:00] VITALS: BMI 47.9
[2022-09-02 06:01] LABS: Anion Gap 5 (5-15); BUN 30 mg/dL (7-18); BUN/Creat Ratio 23.6 RATIO (10-20); Calcium,Total 8.8 mg/dL (8.5-10.1); Chloride 109 mmol/L (98-107); Creatinine, Serum 1.27 mg/dL (0.55-1.02); EST Glomerular Filtration Rate 44 mL/min (>60); Est Glom Filt Rate - Afr Amer 53 mL/min (>60); Glucose 133 mg/dL (74-106); Potassium 4.9 mmol/L (3.5-5.1); Sodium Level 142 mmol/L (136-145)
[2022-09-02 06:38] LABS: Anisocytosis 1+
[2022-09-02] MEDS: Insulin Glargine-YFGN 100 UNIT/ML Pen 10 UNIT SC (06:39)
--- NOTE | 2022-09-02 06:45 | NURSING ---
RLE 2+ pitting edema this morning and 5lb weight gain per built-in bed scale. Lung sounds diminished throughout. PRN lasix administered.
[2022-09-02 07:25] VITALS: O2SAT 95
[2022-09-02] MEDS: Allopurinol 100 MG Tablet PO (07:59)
[2022-09-02] MEDS: Thiamine Hydrochloride 100 MG Tablet PO (07:59)
[2022-09-02] MEDS: Ascorbic Acid 500 MG Tablet PO (07:59)
[2022-09-02 08:01] VITALS: BP 139/45
[2022-09-02 11:54] LABS: Bedside Glucose 186 mg/dL (74-106)
[2022-09-02] MEDS: 0.9% Saline Lock 10 ML Syringe IV (12:57)
[2022-09-02 13:03] VITALS: BP 123/45
--- NOTE | 2022-09-02 13:40 | WOUNDNOTE ---
Nursing had just changed the dressing to the mid abdomen. pt sitting up in the chair at this time.
[2022-09-02 13:51] VITALS: PULSE 74; RESP 18; O2SAT 93
[2022-09-02 16:00] VITALS: BP 145/65; PULSE 70; RESP 16; TEMP 36.5; O2SAT 96
[2022-09-02 17:14] LABS: Bedside Glucose 123 mg/dL (74-106)
[2022-09-02] MEDS: Atorvastatin Calcium 40 MG Tablet PO (20:16)
[2022-09-02] MEDS: Ezetimibe 10 MG Tablet PO (20:16)
[2022-09-02] MEDS: MELATONIN 3 MG TABLET PO (20:16)
[2022-09-02 21:40] LABS: Bedside Glucose 159 mg/dL (74-106)
[2022-09-03 06:00] VITALS: BMI 48.3
[2022-09-03 06:08] LABS: Hemoglobin 7.7 g/dL (12.0-15.0)
[2022-09-03] MEDS: Umeclidinium Bromide Inhaler 1 PUFF INHALATION (06:14)
[2022-09-03] MEDS: Insulin Glargine-YFGN 100 UNIT/ML Pen 10 UNIT SC (06:15)
[2022-09-03] MEDS: Pramipexole Di-HCl 0.25 MG Tablet 0.375 MG PO ×2 (06:17→18:19)
[2022-09-03] MEDS: Ciprofloxacin 500 MG Tablet PO ×2 (06:17→18:18)
[2022-09-03] MEDS: Iron Polysaccharide Complex 150 MG CAPSULE PO (06:17)
[2022-09-03 06:18] VITALS: BP 129/58; PULSE 65
[2022-09-03] MEDS: Cholecalciferol (VIT D3) 25 MCG TABLET (1,000 UNITS) PO (06:18)
[2022-09-03] MEDS: Sucralfate 1 GM Tablet PO ×3 (06:18→18:20)
[2022-09-03] MEDS: Pantoprazole Sodium 40 MG Tablet PO ×2 (06:18→18:18)
[2022-09-03] MEDS: Metoprolol(XL)Succ 25 MG Tablet PO (06:18)
[2022-09-03] MEDS: Senna/Docusate Sodium 1 Tablet PO ×2 (06:18→18:19)
[2022-09-03] MEDS: Paroxetine 20 MG Tablet PO (06:18)
[2022-09-03] MEDS: Nystatin Powder 15gm Bottle 1 APPLIC TOPICAL ×2 (06:19→18:24)
[2022-09-03 06:45] LABS: Bedside Glucose 133 mg/dL (74-106)
[2022-09-03 08:30] VITALS: O2SAT 94
[2022-09-03] MEDS: Ascorbic Acid 500 MG Tablet PO (09:12)
[2022-09-03] MEDS: Allopurinol 100 MG Tablet PO (09:12)
[2022-09-03] MEDS: 0.9% Saline Lock 10 ML Syringe IV (10:10)
[2022-09-03 11:44] LABS: Bedside Glucose 168 mg/dL (74-106)
[2022-09-03 16:00] VITALS: BP 111/69; PULSE 68; RESP 17; TEMP 36.1; O2SAT 100
[2022-09-03 17:15] LABS: Bedside Glucose 137 mg/dL (74-106)
[2022-09-03 20:00] VITALS: PULSE 76; RESP 18; O2SAT 91
[2022-09-03] MEDS: Atorvastatin Calcium 40 MG Tablet PO (21:32)
[2022-09-03] MEDS: MELATONIN 3 MG TABLET PO (21:32)
[2022-09-03 21:41] LABS: Bedside Glucose 187 mg/dL (74-106)
[2022-09-04 05:36] LABS: Hematocrit 26.1 % (37-47); Hemoglobin 7.6 g/dL (12.0-15.0)
[2022-09-04 05:46] VITALS: BP 139/70; PULSE 71
[2022-09-04] MEDS: Metoprolol(XL)Succ 25 MG Tablet PO (05:46)
[2022-09-04] MEDS: Pantoprazole Sodium 40 MG Tablet PO ×2 (05:46→17:12)
[2022-09-04] MEDS: Senna/Docusate Sodium 1 Tablet PO ×2 (05:46→17:12)
[2022-09-04] MEDS: Cholecalciferol (VIT D3) 25 MCG TABLET (1,000 UNITS) PO (05:46)
[2022-09-04] MEDS: Umeclidinium Bromide Inhaler 1 PUFF INHALATION (05:47)
[2022-09-04] MEDS: Paroxetine 20 MG Tablet PO (05:47)
[2022-09-04] MEDS: Iron Polysaccharide Complex 150 MG CAPSULE PO (05:47)
[2022-09-04] MEDS: Pramipexole Di-HCl 0.25 MG Tablet 0.375 MG PO ×2 (05:47→17:11)
[2022-09-04] MEDS: Ciprofloxacin 500 MG Tablet PO ×2 (05:47→17:12)
[2022-09-04] MEDS: Nystatin Powder 15gm Bottle 1 APPLIC TOPICAL ×2 (05:51→17:12)
[2022-09-04 05:52] VITALS: BP 139/70; PULSE 71
[2022-09-04 06:00] VITALS: BMI 48.3
[2022-09-04 06:30] LABS: Bedside Glucose 131 mg/dL (74-106)
[2022-09-04] MEDS: Insulin Glargine-YFGN 100 UNIT/ML Pen 10 UNIT SC (06:38)
[2022-09-04] MEDS: Sucralfate 1 GM Tablet PO ×2 (06:38→17:11)
[2022-09-04 06:57] VITALS: O2SAT 92
[2022-09-04] MEDS: Ascorbic Acid 500 MG Tablet PO (08:06)
[2022-09-04] MEDS: Allopurinol 100 MG Tablet PO (08:06)
[2022-09-04] MEDS: Midodrine HCl 5 MG Tablet 2.5 MG PO ×2 (08:06→17:15)
[2022-09-04 11:06] LABS: Bedside Glucose 150 mg/dL (74-106)
[2022-09-04 16:00] VITALS: BP 114/66; PULSE 73; RESP 18; TEMP 36.1; O2SAT 95
[2022-09-04] MEDS: MELATONIN 3 MG TABLET PO (21:18)
[2022-09-04] MEDS: Atorvastatin Calcium 40 MG Tablet PO (21:18)
[2022-09-04 21:31] LABS: Bedside Glucose 150 mg/dL (74-106)
[2022-09-05 05:15] VITALS: BP 127/56; PULSE 73
[2022-09-05] MEDS: Pramipexole Di-HCl 0.25 MG Tablet 0.375 MG PO ×2 (05:15→18:33)
[2022-09-05] MEDS: Metoprolol(XL)Succ 25 MG Tablet PO (05:15)
[2022-09-05] MEDS: Umeclidinium Bromide Inhaler 1 PUFF INHALATION (05:15)
[2022-09-05] MEDS: Paroxetine 20 MG Tablet PO (05:15)
[2022-09-05] MEDS: Pantoprazole Sodium 40 MG Tablet PO ×2 (05:15→18:33)
[2022-09-05] MEDS: Cholecalciferol (VIT D3) 25 MCG TABLET (1,000 UNITS) PO (05:15)
[2022-09-05] MEDS: Iron Polysaccharide Complex 150 MG CAPSULE PO (05:15)
[2022-09-05] MEDS: Nystatin Powder 15gm Bottle 1 APPLIC TOPICAL ×2 (05:15→18:41)
[2022-09-05] MEDS: Senna/Docusate Sodium 1 Tablet PO ×2 (05:16→18:33)
[2022-09-05] MEDS: Insulin Glargine-YFGN 100 UNIT/ML Pen 10 UNIT SC (05:21)
[2022-09-05 05:39] LABS: Bedside Glucose 129 mg/dL (74-106)
[2022-09-05 06:00] VITALS: BMI 47.5
[2022-09-05] MEDS: Sucralfate 1 GM Tablet PO ×3 (06:08→16:42)
[2022-09-05 08:13] VITALS: O2SAT 94
[2022-09-05] MEDS: Ascorbic Acid 500 MG Tablet PO (09:08)
[2022-09-05] MEDS: Allopurinol 100 MG Tablet PO (09:08)
[2022-09-05 09:10] VITALS: BP 114/39; PULSE 80
--- NOTE | 2022-09-05 09:27 | NURSING ---
DRESSING CHANGED TO PT ABDOMINAL. PT TOLERATED WELL.
--- NOTE | 2022-09-05 11:20 | NURSING ---
PT FOUND TRANSFERRING HER SELF TO BED FROM RECLINER. PT EDUCATED ON USE OF CALL LIGHT AND FALLS. PT STATED SHE UNDER STOOD.
[2022-09-05 11:57] LABS: Bedside Glucose 159 mg/dL (74-106)
[2022-09-05 13:34] VITALS: BP 145/50; PULSE 69
[2022-09-05 14:33] VITALS: BP 143/70; PULSE 67; RESP 16; TEMP 36.3; O2SAT 97
[2022-09-05 16:39] LABS: Hematocrit 35.1 % (37-47); Hemoglobin 10.6 g/dL (12.0-15.0)
[2022-09-05 16:55] LABS: Bedside Glucose 147 mg/dL (74-106)
[2022-09-05] MEDS: Atorvastatin Calcium 40 MG Tablet PO (21:10)
[2022-09-05] MEDS: MELATONIN 3 MG TABLET PO (21:10)
[2022-09-05 22:15] LABS: Bedside Glucose 173 mg/dL (74-106)
[2022-09-06] VITALS (7 sets, daily range): BP systolic 122–140; BP diastolic 39–58; PULSE 63–85; RESP 16–18; TEMP 36.2; O2SAT 95–97; BMI 47.9
[2022-09-06] MEDS: Paroxetine 20 MG Tablet PO (05:54)
[2022-09-06] MEDS: Iron Polysaccharide Complex 150 MG CAPSULE PO (05:54)
[2022-09-06] MEDS: Cholecalciferol (VIT D3) 25 MCG TABLET (1,000 UNITS) PO (05:54)
[2022-09-06] MEDS: Sucralfate 1 GM Tablet PO ×3 (05:54→16:26)
[2022-09-06] MEDS: Pantoprazole Sodium 40 MG Tablet PO ×2 (05:55→17:23)
[2022-09-06] MEDS: Umeclidinium Bromide Inhaler 1 PUFF INHALATION (05:55)
[2022-09-06] MEDS: Pramipexole Di-HCl 0.25 MG Tablet 0.375 MG PO ×2 (05:55→17:21)
[2022-09-06] MEDS: Senna/Docusate Sodium 1 Tablet PO ×2 (05:55→17:23)
[2022-09-06] MEDS: Nystatin Powder 15gm Bottle 1 APPLIC TOPICAL ×2 (05:55→17:22)
[2022-09-06] MEDS: Metoprolol(XL)Succ 25 MG Tablet PO (05:57)
[2022-09-06] MEDS: Insulin Glargine-YFGN 100 UNIT/ML Pen 10 UNIT SC (06:17)
[2022-09-06 06:53] LABS: Bedside Glucose 142 mg/dL (74-106)
[2022-09-06] MEDS: Allopurinol 100 MG Tablet PO (08:07)
[2022-09-06] MEDS: Ascorbic Acid 500 MG Tablet PO (08:07)
[2022-09-06 11:42] LABS: Bedside Glucose 163 mg/dL (74-106)
[2022-09-06 17:00] LABS: Bedside Glucose 144 mg/dL (74-106)
[2022-09-06] MEDS: APIXABAN 5 MG TABLET PO (17:21)
[2022-09-06] MEDS: Atorvastatin Calcium 40 MG Tablet PO (20:44)
[2022-09-06] MEDS: MELATONIN 3 MG TABLET PO (20:44)
[2022-09-06] MEDS: Acetaminophen 500 MG Tablet 1000 MG PO (20:50)
--- NOTE | 2022-09-06 21:02 | NURSING ---
Dressing changed to abdomen at this time. Tolerated well . No s/s of infection. No c/o pain.
[2022-09-06 21:55] LABS: Bedside Glucose 175 mg/dL (74-106)
[2022-09-07 05:09] VITALS: BP 147/62; PULSE 71
[2022-09-07] MEDS: Senna/Docusate Sodium 1 Tablet PO ×2 (05:09→17:52)
[2022-09-07] MEDS: Metoprolol(XL)Succ 25 MG Tablet PO (05:09)
[2022-09-07] MEDS: Pantoprazole Sodium 40 MG Tablet PO ×2 (05:09→17:52)
[2022-09-07] MEDS: Iron Polysaccharide Complex 150 MG CAPSULE PO (05:09)
[2022-09-07] MEDS: Nystatin Powder 15gm Bottle 1 APPLIC TOPICAL ×2 (05:10→17:53)
[2022-09-07] MEDS: Pramipexole Di-HCl 0.25 MG Tablet 0.375 MG PO ×2 (05:10→17:52)
[2022-09-07] MEDS: Paroxetine 20 MG Tablet PO (05:10)
[2022-09-07] MEDS: APIXABAN 5 MG TABLET PO (05:10)
[2022-09-07] MEDS: Clopidogrel Bisulfate 75 MG Tablet PO (05:10)
[2022-09-07] MEDS: Sucralfate 1 GM Tablet PO ×3 (05:10→16:19)
[2022-09-07] MEDS: Cholecalciferol (VIT D3) 25 MCG TABLET (1,000 UNITS) PO (05:10)
[2022-09-07] MEDS: Umeclidinium Bromide Inhaler 1 PUFF INHALATION (05:11)
[2022-09-07 06:00] VITALS: BMI 48.0
[2022-09-07 06:00] LABS: Hematocrit 30.6 % (37-47); Hemoglobin 9.4 g/dL (12.0-15.0)
[2022-09-07] MEDS: Insulin Glargine-YFGN 100 UNIT/ML Pen 10 UNIT SC (06:39)
[2022-09-07 06:45] LABS: Bedside Glucose 129 mg/dL (74-106)
[2022-09-07 07:29] VITALS: O2SAT 95
[2022-09-07] MEDS: Ascorbic Acid 500 MG Tablet PO (08:04)
[2022-09-07] MEDS: Allopurinol 100 MG Tablet PO (08:04)
[2022-09-07 11:58] LABS: Bedside Glucose 189 mg/dL (74-106)
[2022-09-07 12:56] VITALS: BP 126/40
[2022-09-07 13:50] VITALS: BP 141/52; PULSE 76; RESP 16; TEMP 36.5; O2SAT 96
[2022-09-07 16:32] LABS: Bedside Glucose 129 mg/dL (74-106)
[2022-09-07] MEDS: MELATONIN 3 MG TABLET PO (20:58)
[2022-09-07] MEDS: Atorvastatin Calcium 40 MG Tablet PO (20:58)
[2022-09-07 21:00] VITALS: O2SAT 95
[2022-09-07] MEDS: Acetaminophen 500 MG Tablet 1000 MG PO (21:03)
[2022-09-07 21:33] LABS: Bedside Glucose 143 mg/dL (74-106)
[2022-09-08 05:58] LABS: Hematocrit 31.6 % (37-47); Hemoglobin 9.4 g/dL (12.0-15.0)
[2022-09-08 06:00] VITALS: BMI 48.2
[2022-09-08 06:17] LABS: Bedside Glucose 130 mg/dL (74-106)
[2022-09-08] MEDS: Umeclidinium Bromide Inhaler 1 PUFF INHALATION (06:18)
[2022-09-08] MEDS: Sucralfate 1 GM Tablet PO ×3 (06:18→16:33)
[2022-09-08] MEDS: Cholecalciferol (VIT D3) 25 MCG TABLET (1,000 UNITS) PO (06:18)
[2022-09-08] MEDS: Pramipexole Di-HCl 0.25 MG Tablet 0.375 MG PO ×2 (06:19→17:20)
[2022-09-08] MEDS: Pantoprazole Sodium 40 MG Tablet PO ×2 (06:19→17:20)
[2022-09-08] MEDS: Senna/Docusate Sodium 1 Tablet PO ×2 (06:19→17:20)
[2022-09-08] MEDS: Nystatin Powder 15gm Bottle 1 APPLIC TOPICAL ×2 (06:20→17:19)
[2022-09-08] MEDS: Paroxetine 20 MG Tablet PO (06:20)
[2022-09-08 06:21] VITALS: BP 130/47; PULSE 70
[2022-09-08] MEDS: Metoprolol(XL)Succ 25 MG Tablet PO (06:21)
[2022-09-08] MEDS: Insulin Glargine-YFGN 100 UNIT/ML Pen 10 UNIT SC (06:39)
[2022-09-08] MEDS: Ascorbic Acid 500 MG Tablet PO (08:04)
[2022-09-08] MEDS: Iron Polysaccharide Complex 150 MG CAPSULE PO (08:04)
[2022-09-08] MEDS: Allopurinol 100 MG Tablet PO (08:05)
[2022-09-08 08:10] VITALS: BP 146/57; PULSE 75
[2022-09-08 09:15] VITALS: PULSE 77; RESP 18; O2SAT 95
[2022-09-08 09:37] VITALS: BMI 48.2
--- NOTE | 2022-09-08 11:06 | NURSING ---
DAMEON REEDER/WOUND NURSE CHANGED PT DRESSING TODAY.
--- NOTE | 2022-09-08 11:15 | WOUNDNOTE ---
wound photo: abdomen
[2022-09-08 11:23] LABS: Bedside Glucose 174 mg/dL (74-106)
[2022-09-08 12:58] VITALS: BP 134/37; PULSE 73; RESP 14; TEMP 36.8; O2SAT 98
[2022-09-08 13:06] VITALS: BP 135/60; PULSE 71
[2022-09-08 16:39] LABS: Bedside Glucose 135 mg/dL (74-106)
[2022-09-08 17:22] VITALS: BP 125/51; PULSE 66
[2022-09-08] MEDS: MELATONIN 3 MG TABLET PO (21:29)
[2022-09-08] MEDS: Atorvastatin Calcium 40 MG Tablet PO (21:29)
[2022-09-08 21:50] LABS: Bedside Glucose 142 mg/dL (74-106)
[2022-09-09 05:39] LABS: Absolute Lymphocyte Count 1.26 X10^3/uL (0.83-4.51); Absolute Neutrophil Count 4.1 X10^3/uL (2.0-7.7); Basophil# 0.01 X10^3/uL; Basophil% 0.2 % (0-1); Eosinophil# 0.13 X10^3/uL; Eosinophils% 2.1 % (0-5); Hematocrit 31.9 % (37-47); Hemoglobin 9.8 g/dL (12.0-15.0); Lymphocyte # 1.26 X10^3/ul (0.83-4.51); Lymphocyte % 20.6 % (19-41); Mean Corp Hgb Conc 30.7 g/dL (32-36); Mean Corpuscular Hgb 30.1 pg (27.0-32.0); Mean Corpuscular Volume 97.9 fL (81-99); Mean Platelet Vol. 10.3 fl (6.2-12.0); Monocyte# 0.58 X10^3/uL; Monocyte% 9.5 % (0-10); NRBC Flagged by Analyzer 0 % (0-5); Neutrophil # 4.12 X10^3/uL (2.7-7.7); Neutrophil % 67.4 % (47-70); Platelet Count 286 K/mm3 (150-450); RBC Distribution Width CV 17.8 % (11.6-14.6); RBC Distribution Width SD 63.9 fl (35.1-43.9); Red Blood Count 3.26 M/mm3 (4.2-5.4); White Blood Count 6.1 K/mm3 (4.4-11.0)
[2022-09-09 06:00] VITALS: BMI 48.2
[2022-09-09 06:04] LABS: Anion Gap 4 (5-15); BUN 24 mg/dL (7-18); BUN/Creat Ratio 19.5 RATIO (10-20); Calcium,Total 9.2 mg/dL (8.5-10.1); Chloride 112 mmol/L (98-107); Creatinine, Serum 1.23 mg/dL (0.55-1.02); EST Glomerular Filtration Rate 45 mL/min (>60); Est Glom Filt Rate - Afr Amer 55 mL/min (>60); Estimated Creatinine Clearance 32.22 ml/min; Glucose 137 mg/dL (74-106); Potassium 4.3 mmol/L (3.5-5.1); Sodium Level 142 mmol/L (136-145)
[2022-09-09] MEDS: Paroxetine 20 MG Tablet PO (06:14)
[2022-09-09] MEDS: Pramipexole Di-HCl 0.25 MG Tablet 0.375 MG PO ×2 (06:14→17:52)
[2022-09-09 06:16] VITALS: BP 123/40; PULSE 75
[2022-09-09] MEDS: Sucralfate 1 GM Tablet PO ×3 (06:16→16:29)
[2022-09-09] MEDS: Pantoprazole Sodium 40 MG Tablet PO ×2 (06:16→17:52)
[2022-09-09] MEDS: Metoprolol(XL)Succ 25 MG Tablet PO (06:16)
[2022-09-09] MEDS: Senna/Docusate Sodium 1 Tablet PO ×2 (06:16→17:52)
[2022-09-09] MEDS: Cholecalciferol (VIT D3) 25 MCG TABLET (1,000 UNITS) PO (06:16)
[2022-09-09] MEDS: Nystatin Powder 15gm Bottle 1 APPLIC TOPICAL ×2 (06:17→17:53)
[2022-09-09] MEDS: Umeclidinium Bromide Inhaler 1 PUFF INHALATION (06:17)
[2022-09-09] MEDS: Insulin Glargine-YFGN 100 UNIT/ML Pen 10 UNIT SC (06:21)
[2022-09-09 06:45] LABS: Bedside Glucose 129 mg/dL (74-106)
[2022-09-09] MEDS: Iron Polysaccharide Complex 150 MG CAPSULE PO (08:06)
[2022-09-09] MEDS: Allopurinol 100 MG Tablet PO (08:06)
[2022-09-09] MEDS: Ascorbic Acid 500 MG Tablet PO (08:06)
[2022-09-09 11:21] LABS: Bedside Glucose 197 mg/dL (74-106)
[2022-09-09 15:54] VITALS: BP 136/54; PULSE 97; RESP 18; TEMP 36.5; O2SAT 97
[2022-09-09 16:52] LABS: Bedside Glucose 128 mg/dL (74-106)
[2022-09-09] MEDS: APIXABAN 5 MG TABLET PO (17:52)
[2022-09-09 22:00] VITALS: PULSE 81; RESP 18; O2SAT 96
[2022-09-09] MEDS: MELATONIN 3 MG TABLET PO (22:01)
[2022-09-09] MEDS: Atorvastatin Calcium 40 MG Tablet PO (22:01)
[2022-09-09 22:11] LABS: Bedside Glucose 168 mg/dL (74-106)
[2022-09-10] VITALS (7 sets, daily range): BP systolic 136–148; BP diastolic 50–77; PULSE 66–76; RESP 16–18; TEMP 36.7; O2SAT 91–96; BMI 48.7
[2022-09-10 05:31] LABS: Hematocrit 29.2 % (37-47); Hemoglobin 9.1 g/dL (12.0-15.0)
[2022-09-10] MEDS: Umeclidinium Bromide Inhaler 1 PUFF INHALATION (05:38)
[2022-09-10] MEDS: Acetaminophen 500 MG Tablet 1000 MG PO (05:38)
[2022-09-10] MEDS: Pantoprazole Sodium 40 MG Tablet PO ×2 (05:39→18:22)
[2022-09-10] MEDS: Paroxetine 20 MG Tablet PO (05:39)
[2022-09-10] MEDS: Pramipexole Di-HCl 0.25 MG Tablet 0.375 MG PO ×2 (05:39→18:21)
[2022-09-10] MEDS: Sucralfate 1 GM Tablet PO ×3 (05:40→17:05)
[2022-09-10] MEDS: Metoprolol(XL)Succ 25 MG Tablet PO (05:40)
[2022-09-10] MEDS: Senna/Docusate Sodium 1 Tablet PO ×2 (05:40→18:22)
[2022-09-10] MEDS: Clopidogrel Bisulfate 75 MG Tablet PO (05:40)
[2022-09-10] MEDS: APIXABAN 5 MG TABLET PO (05:40)
[2022-09-10] MEDS: Cholecalciferol (VIT D3) 25 MCG TABLET (1,000 UNITS) PO (05:40)
[2022-09-10] MEDS: Nystatin Powder 15gm Bottle 1 APPLIC TOPICAL ×2 (05:52→18:21)
[2022-09-10 06:21] LABS: Bedside Glucose 138 mg/dL (74-106)
[2022-09-10] MEDS: Insulin Glargine-YFGN 100 UNIT/ML Pen 10 UNIT SC (06:43)
--- NOTE | 2022-09-10 08:16 | NURSING ---
CALLED FRIENDS OFFICE AND LEFT MESSAGE ON PT HEMOGLOBIN DROPPING AND POSITIVE FOR BLOOD IN STOOL AGAIN. RN AWARE
[2022-09-10] MEDS: Iron Polysaccharide Complex 150 MG CAPSULE PO (08:20)
[2022-09-10] MEDS: Ascorbic Acid 500 MG Tablet PO (08:21)
[2022-09-10] MEDS: Allopurinol 100 MG Tablet PO (08:21)
[2022-09-10] MEDS: Furosemide 20 MG Tablet PO (11:51)
[2022-09-10 11:56] LABS: Bedside Glucose 162 mg/dL (74-106)
[2022-09-10 16:54] LABS: Bedside Glucose 125 mg/dL (74-106)
[2022-09-10] MEDS: MELATONIN 3 MG TABLET PO (21:35)
[2022-09-10] MEDS: Atorvastatin Calcium 40 MG Tablet PO (21:35)
[2022-09-10 22:23] LABS: Bedside Glucose 158 mg/dL (74-106)
--- NOTE | 2022-09-11 01:06 | NURSING ---
Abdominal Dressing changed, small amount of purulent drainage. Cleansed site with NS and packed with 2x2 gauze soaked in NS for wet to dry dressing. Covered with another 2x2 and tape. Date time and initials present.
[2022-09-11 05:56] LABS: Hematocrit 31.1 % (37-47); Hemoglobin 9.1 g/dL (12.0-15.0)
[2022-09-11] MEDS: Pramipexole Di-HCl 0.25 MG Tablet 0.375 MG PO ×2 (05:59→17:59)
[2022-09-11] MEDS: Pantoprazole Sodium 40 MG Tablet PO ×2 (06:00→17:59)
[2022-09-11] MEDS: Paroxetine 20 MG Tablet PO (06:00)
[2022-09-11] MEDS: Cholecalciferol (VIT D3) 25 MCG TABLET (1,000 UNITS) PO (06:00)
[2022-09-11] MEDS: Sucralfate 1 GM Tablet PO ×3 (06:00→17:59)
[2022-09-11 06:01] VITALS: BP 129/47; PULSE 78
[2022-09-11] MEDS: Metoprolol(XL)Succ 25 MG Tablet PO (06:01)
[2022-09-11] MEDS: Furosemide 20 MG Tablet PO (06:01)
[2022-09-11] MEDS: Nystatin Powder 15gm Bottle 1 APPLIC TOPICAL ×2 (06:02→18:03)
[2022-09-11] MEDS: Umeclidinium Bromide Inhaler 1 PUFF INHALATION (06:02)
[2022-09-11] MEDS: Insulin Glargine-YFGN 100 UNIT/ML Pen 10 UNIT SC (06:07)
[2022-09-11 06:34] VITALS: O2SAT 94
[2022-09-11 06:36] LABS: Bedside Glucose 122 mg/dL (74-106)
[2022-09-11] MEDS: Iron Polysaccharide Complex 150 MG CAPSULE PO (09:08)
[2022-09-11] MEDS: Ascorbic Acid 500 MG Tablet PO (09:08)
[2022-09-11] MEDS: Allopurinol 100 MG Tablet PO (09:08)
[2022-09-11] MEDS: Acetaminophen 500 MG Tablet 1000 MG PO (09:13)
[2022-09-11 11:24] LABS: Bedside Glucose 168 mg/dL (74-106)
[2022-09-11 15:13] VITALS: BP 114/24; PULSE 75; RESP 16; TEMP 37.1; O2SAT 92
[2022-09-11 16:34] LABS: Bedside Glucose 120 mg/dL (74-106)
[2022-09-11] MEDS: Senna/Docusate Sodium 1 Tablet PO (18:01)
[2022-09-11 18:16] VITALS: BP 143/63
[2022-09-11] MEDS: MELATONIN 3 MG TABLET PO (19:36)
[2022-09-11] MEDS: Atorvastatin Calcium 40 MG Tablet PO (19:36)
[2022-09-11 22:31] LABS: Bedside Glucose 147 mg/dL (74-106)
[2022-09-12 06:00] VITALS: BMI 48.3
[2022-09-12] MEDS: Pramipexole Di-HCl 0.25 MG Tablet 0.375 MG PO ×2 (06:07→16:45)
[2022-09-12] MEDS: Umeclidinium Bromide Inhaler 1 PUFF INHALATION (06:07)
[2022-09-12 06:08] VITALS: BP 123/58; PULSE 59
[2022-09-12] MEDS: Paroxetine 20 MG Tablet PO (06:08)
[2022-09-12] MEDS: Cholecalciferol (VIT D3) 25 MCG TABLET (1,000 UNITS) PO (06:08)
[2022-09-12] MEDS: Metoprolol(XL)Succ 25 MG Tablet PO (06:08)
[2022-09-12] MEDS: Pantoprazole Sodium 40 MG Tablet PO ×2 (06:08→16:45)
[2022-09-12] MEDS: Senna/Docusate Sodium 1 Tablet PO (06:08)
[2022-09-12] MEDS: Sucralfate 1 GM Tablet PO ×3 (06:09→16:43)
[2022-09-12] MEDS: Furosemide 20 MG Tablet PO (06:09)
[2022-09-12] MEDS: Nystatin Powder 15gm Bottle 1 APPLIC TOPICAL ×2 (06:09→16:46)
[2022-09-12] MEDS: Insulin Glargine-YFGN 100 UNIT/ML Pen 10 UNIT SC (06:09)
[2022-09-12 06:39] LABS: Bedside Glucose 144 mg/dL (74-106)
[2022-09-12 07:12] LABS: Hematocrit 28.4 % (37-47); Hemoglobin 8.6 g/dL (12.0-15.0)
[2022-09-12 08:03] VITALS: O2SAT 93
[2022-09-12] MEDS: Iron Polysaccharide Complex 150 MG CAPSULE PO (08:18)
[2022-09-12] MEDS: Midodrine HCl 5 MG Tablet 2.5 MG PO ×3 (08:18→16:46)
[2022-09-12] MEDS: Ascorbic Acid 500 MG Tablet PO (08:19)
[2022-09-12] MEDS: Allopurinol 100 MG Tablet PO (08:19)
[2022-09-12 11:25] LABS: Bedside Glucose 168 mg/dL (74-106)
[2022-09-12 13:31] VITALS: BP 137/66; PULSE 76; RESP 16; TEMP 36.7; O2SAT 93
[2022-09-12 16:38] LABS: Bedside Glucose 143 mg/dL (74-106)
[2022-09-12] MEDS: Atorvastatin Calcium 40 MG Tablet PO (20:16)
[2022-09-12] MEDS: MELATONIN 3 MG TABLET PO (20:16)
[2022-09-12 20:26] VITALS: O2SAT 92
[2022-09-12 22:07] LABS: Bedside Glucose 154 mg/dL (74-106)
[2022-09-13] MEDS: Paroxetine 20 MG Tablet PO (05:44)
[2022-09-13] MEDS: Sucralfate 1 GM Tablet PO ×3 (05:44→17:00)
[2022-09-13] MEDS: Umeclidinium Bromide Inhaler 1 PUFF INHALATION (05:44)
[2022-09-13 05:45] VITALS: BP 145/72; PULSE 68
[2022-09-13] MEDS: Senna/Docusate Sodium 1 Tablet PO (05:45)
[2022-09-13] MEDS: Pantoprazole Sodium 40 MG Tablet PO ×2 (05:45→17:08)
[2022-09-13] MEDS: Furosemide 20 MG Tablet PO (05:45)
[2022-09-13] MEDS: Metoprolol(XL)Succ 25 MG Tablet PO (05:45)
[2022-09-13] MEDS: Pramipexole Di-HCl 0.25 MG Tablet 0.375 MG PO ×2 (05:45→17:05)
[2022-09-13] MEDS: Cholecalciferol (VIT D3) 25 MCG TABLET (1,000 UNITS) PO (05:45)
[2022-09-13] MEDS: Nystatin Powder 15gm Bottle 1 APPLIC TOPICAL ×2 (05:46→21:03)
[2022-09-13 06:00] VITALS: BMI 48.4
[2022-09-13 06:11] LABS: Hematocrit 28.6 % (37-47); Hemoglobin 8.5 g/dL (12.0-15.0)
[2022-09-13] MEDS: Insulin Glargine-YFGN 100 UNIT/ML Pen 10 UNIT SC (06:34)
[2022-09-13 06:50] LABS: Bedside Glucose 137 mg/dL (74-106)
[2022-09-13] MEDS: Ascorbic Acid 500 MG Tablet PO (07:47)
[2022-09-13] MEDS: Midodrine HCl 5 MG Tablet 2.5 MG PO ×3 (07:47→17:00)
[2022-09-13] MEDS: Iron Polysaccharide Complex 150 MG CAPSULE PO (07:47)
[2022-09-13] MEDS: Allopurinol 100 MG Tablet PO (07:48)
[2022-09-13 08:00] VITALS: O2SAT 94
[2022-09-13 11:44] LABS: Bedside Glucose 191 mg/dL (74-106)
[2022-09-13 14:47] VITALS: BP 133/50; PULSE 65; RESP 16; TEMP 35.9; O2SAT 93
[2022-09-13 16:55] LABS: Bedside Glucose 171 mg/dL (74-106)
[2022-09-13] MEDS: MELATONIN 3 MG TABLET PO (21:02)
[2022-09-13] MEDS: Atorvastatin Calcium 40 MG Tablet PO (21:02)
[2022-09-13 21:40] LABS: Bedside Glucose 162 mg/dL (74-106)
[2022-09-14] MEDS: Cholecalciferol (VIT D3) 25 MCG TABLET (1,000 UNITS) PO (05:28)
[2022-09-14] MEDS: Umeclidinium Bromide Inhaler 1 PUFF INHALATION (05:28)
[2022-09-14] MEDS: Pramipexole Di-HCl 0.25 MG Tablet 0.375 MG PO ×2 (05:28→17:40)
[2022-09-14] MEDS: Paroxetine 20 MG Tablet PO (05:28)
[2022-09-14 05:29] VITALS: BP 143/61; PULSE 72
[2022-09-14] MEDS: Pantoprazole Sodium 40 MG Tablet PO ×2 (05:29→17:43)
[2022-09-14] MEDS: Senna/Docusate Sodium 1 Tablet PO (05:29)
[2022-09-14] MEDS: Furosemide 20 MG Tablet PO (05:29)
[2022-09-14] MEDS: Metoprolol(XL)Succ 25 MG Tablet PO (05:29)
[2022-09-14] MEDS: Sucralfate 1 GM Tablet PO ×3 (05:29→17:38)
[2022-09-14] MEDS: Nystatin Powder 15gm Bottle 1 APPLIC TOPICAL ×2 (05:32→17:46)
[2022-09-14 05:48] LABS: Hematocrit 29.5 % (37-47); Hemoglobin 8.8 g/dL (12.0-15.0)
[2022-09-14 06:23] LABS: Bedside Glucose 135 mg/dL (74-106)
[2022-09-14] MEDS: Insulin Glargine-YFGN 100 UNIT/ML Pen 10 UNIT SC (06:42)
[2022-09-14 07:19] VITALS: O2SAT 95
--- NOTE | 2022-09-14 07:53 | PN.TCU_ITS ---
Subjective Subjective Resident seen, examined for regulatory visit. Resident feels well, she has no complaints. 09/01/2022 Dr. Resendez treated 2 gastric ulcers, started Pantoprazole, Sucralfate. 09/04/2022 Transfused 2 units PRBC for hemoglobin 7.6. 09/05/2022 Hemoglobin 10.6. Eliquis, Plavix has been held as her hemoglobin slowly drifting down. Today her hemoglobin up a little, Eliquis, Plavix restarted. Objective Data Objective Data Vital Signs: Vital Signs Temp Pulse Resp BP Pulse Ox O2 Del Method O2 Flow Rate 96.6 F L 72 16 143/61 H 93 Nasal Cannula 3 09/13/22 14:47 09/14/22 05:29 09/13/22 14:47 09/14/22 05:29 09/13/22 14:47 09/13/22 14:47 09/13/22 14:47 Oxygen Flow Rate (L/min) 3 Oxygen Delivery Method Nasal Cannula Weight: 119.476 kg Body Mass Index (BMI) 48.4 Intake & Output: Intake and Output for Last 24 Hours 09/12/22 09/13/22 09/14/22 23:59 23:59 23:59 Intake Total 900 / 900 920 / 920 Balance 900 / 900 920 / 920 Lab / Micro Data 09/14/22 05:12 09/09/22 05:11 Labs: Laboratory Results - last 24 hr 09/13/22 11:16: POC Glucose 191 H 09/13/22 16:37: POC Glucose 171 H 09/13/22 21:15: POC Glucose 162 H 09/14/22 05:12: Hgb 8.8 L, Hct 29.5 L 09/14/22 05:45: POC Glucose 135 H Micro: Microbiology 09/08/22 19:00 Stool Stool Occult Blood (JAVID) - Final Occult Blood Positive 08/28/22 15:50 Urine, Catheterized Urine Culture - Final Klebsiella pneumoniae sp pneum Escherichia coli 08/30/22 11:49 Stool Stool Occult Blood (JAVID) - Final Occult Blood Positive Physical Exam Const alert General Appearance: cooperative HEENT normocephalic Eyes PERRL and EOMs intact bilaterally Neck supple, no JVD and no carotid bruits Resp normal respiratory effort, normal air movement and clear to auscultation bilater ally Cardio regular rate and regular rhythm GI normal to inspection, nondistended, normoactive bowel sounds, non-tender and non-distended GI Narrative: Midline incision clean, dry, intact. Extremity normal capillary refill General Extremity: Negative for edema Skin no rashes or lesions noted General Skin Exam: no breakdown Psych affect normal Appearance: appropriate Assessment & Plan Assessment/Plan (1) Debility: (2) Mesenteric ischemia: (3) Occlusion of celiac artery: (4) Occlusion of superior mesenteric artery: (5) New onset atrial fibrillation: (6) Heart failure with reduced ejection fraction: (7) Septic shock: (8) Acute kidney injury: (9) Bacteremia: (10) Depression: (11) Restless leg syndrome: (12) Dyskinesia: (13) COPD (chronic obstructive pulmonary disease): (14) Obstructive sleep apnea: (15) Severe pulmonary hypertension: (16) Anemia in chronic kidney disease: (17) Essential (primary) hypertension: (18) Hyperlipidemia: (19) Type 2 diabetes mellitus: (20) Gout: (21) GERD (gastroesophageal reflux disease): PLAN: Plan 71 year old female with below past medical history hospitalized for mesenteric ischemia status post celiac/SMA thrombectomy, complicated by new onset atrial fibrillation, septic shock, bacteremia, acute kidney injury requiring CRRT, admitted to TCU with debility, here for rehabilitation, strengthening, prior to discharge home with . * Debility - PT/OT. * Pain - Tylenol 1000mg q6h prn pain (1-10). * Bowel - senna/colace 1 tablet bid, Magnesium citrate 300ml po daily prn. * Adult immunization - Administer pneumonia vaccine, covid19 vaccine, flu vaccine as appropriate. * DVT prophylaxis - on Eliquis. * COPD - Incruse 1 puff daily, Albuterol 1 puff q6h prn. * Gout - Allopurinol 100mg daily. * Atrial fibrillation - Metoprolol succinate 25mg daily, Eliquis 5mg bid. * Hyperlipidemia - Atorvastatin 40mg qhs. * PAOD - Plavix 75mg daily, Eliquis 5mg bid. * Iron deficiency anemia - Ferrex 150mg daily, Vitamin C 500mg daily. * Heart failure with reduced ejection fraction (35%) - Metoprolol succinate 25mg daily, Furosemide 20mg daily prn. * Diabetes Mellius II - Glargine 10 units daily. * Insomnia - Melatonin 3mg qhs. * Hypotension - Midodrine 2.5mg tid. * Tinea Corporis - Nystatin topical bid. * Gastric ulcer - Pantoprazole 40mg bid, Sucralfate 1gm tidac. * Depression - Paroxetine 20mg daily, stable chronic alf use, GDR not recommended. * Restless leg syndrome - Mirapex 0.375mg bid. * Vitamin D deficiency - D3 25mcg daily. * Sore throat - Cepacol 1 lozenge q2h prn. Capacity Capacity Assessment Tool Can the patient make a choice & communicate that choice?: Yes Can the patient understand benefits, risks and alternatives?: Yes Can the patient make a logical, rational choice?: Yes Is the choice the patient makes consistent w/ their values?: Yes Is there an impending, emergent risk to the patient?: No Does the patient have an Advance Directive?: Yes Is there a Surrogate Available?: Yes i.e. HCPOA: Yes i.e. close relative (spouse, child, parent, sibling)?: Yes
[2022-09-14] MEDS: Allopurinol 100 MG Tablet PO (08:51)
[2022-09-14] MEDS: Midodrine HCl 5 MG Tablet 2.5 MG PO ×2 (08:51→12:44)
[2022-09-14] MEDS: Ascorbic Acid 500 MG Tablet PO (08:51)
[2022-09-14] MEDS: Iron Polysaccharide Complex 150 MG CAPSULE PO (08:51)
[2022-09-14 11:53] LABS: Bedside Glucose 154 mg/dL (74-106)
[2022-09-14 12:52] VITALS: BP 96/25; PULSE 60; RESP 14; TEMP 36.8; O2SAT 97
--- NOTE | 2022-09-14 13:53 | WOUNDNOTE ---
wound photo: abdomen
[2022-09-14 14:41] VITALS: BP 136/44
[2022-09-14 16:59] LABS: Bedside Glucose 137 mg/dL (74-106)
--- NOTE | 2022-09-14 17:54 | NURSING ---
dr Jacome notified again regarding order from Dr calderón, he believes pt still bleeding. new order to keep NPO after midnight, dr jacome to scope tomorrow. he will enter orders.
[2022-09-14 21:51] LABS: Bedside Glucose 169 mg/dL (74-106)
[2022-09-14] MEDS: MELATONIN 3 MG TABLET PO (21:57)
[2022-09-14] MEDS: Atorvastatin Calcium 40 MG Tablet PO (21:57)
[2022-09-15 05:53] LABS: Hematocrit 28.5 % (37-47); Hemoglobin 8.7 g/dL (12.0-15.0)
[2022-09-15 06:00] VITALS: BMI 48.4
[2022-09-15 06:27] VITALS: O2SAT 92
[2022-09-15] MEDS: Nystatin Powder 15gm Bottle 1 APPLIC TOPICAL (06:34)
[2022-09-15] MEDS: Umeclidinium Bromide Inhaler 1 PUFF INHALATION (06:36)
[2022-09-15] MEDS: Furosemide 20 MG Tablet PO (06:36)
[2022-09-15 06:37] VITALS: BP 144/54; PULSE 73
[2022-09-15] MEDS: Metoprolol(XL)Succ 25 MG Tablet PO (06:37)
[2022-09-15] MEDS: Pramipexole Di-HCl 0.25 MG Tablet 0.375 MG PO (06:37)
[2022-09-15] MEDS: Paroxetine 20 MG Tablet PO (06:37)
[2022-09-15] MEDS: Pantoprazole Sodium 40 MG Tablet PO (06:38)
[2022-09-15] MEDS: Cholecalciferol (VIT D3) 25 MCG TABLET (1,000 UNITS) PO (06:38)
[2022-09-15 06:42] LABS: Bedside Glucose 139 mg/dL (74-106)
[2022-09-15 08:02] VITALS: BP 150/68; PULSE 72
[2022-09-15 11:01] VITALS: BMI 48.4
[2022-09-15 11:38] LABS: Bedside Glucose 131 mg/dL (74-106)
[2022-09-15 14:14] VITALS: BP 117/54; PULSE 66; RESP 16; TEMP 36.2; O2SAT 96
--- NOTE | 2022-09-15 14:40 | NURSING ---
PT LEFT FLOOR BY BED FOR PROCEDURE WITH .
[2022-09-15 18:03] LABS: Bedside Glucose 115 mg/dL (74-106)
--- NOTE | 2022-09-15 18:06 | NURSING ---
PT RETURNED TO FLOOR FROM PROCEDURE WITH . PER PT IS TO REMAIN NPO FOR A CT SCAN AND THEN PT CAN EAT AFTER WORDS. EXPLAINED TO PT,PT STATED SHE UNDER STOOD. THIS NURSE REPORTED TO STAFF TO KEEP EYE ON PT DUE TO PT BEING A DIABETIC. RN AWARE
[2022-09-15 19:53] LABS: Creatinine, Serum 1.14 mg/dL (0.55-1.02); EST Glomerular Filtration Rate 50 mL/min (>60); Est Glom Filt Rate - Afr Amer 60 mL/min (>60); Estimated Creatinine Clearance 34.76 ml/min
--- NOTE | 2022-09-15 21:35 | NURSING ---
called TCU and spoke to this nurse. stated patients CT results were called into him and patient needed to be sent down to the ED. PT was taken down to the ED by this nurse and [employer] EXECUTIVE.
--- NOTE | 2022-09-15 21:40 | NURSING ---
Addendum entered by Court Zambrano 09/15/22 21:52: notified of patient sent to ED per Dr. Resendez. Original Note: Pt sent to ED at this time per due to CT results, report given to Lindsay in ED. Per Lindsay patient to go to ED room 15
--- NOTE | 2022-09-15 22:00 | NURSING ---
This nurse called patients and updated on patients status. Pt stated he had just talked to and was given the information. This nurse gave patients the patients room in ED so he could call and get updates or talk to patient. thanked this nurse.
--- NOTE | 2022-09-15 23:40 | NURSING ---
pt arrived back to floor from ED. Outpatient ultrasound needs to be ordered tomorrow during the day
[2022-09-16] MEDS: Atorvastatin Calcium 40 MG Tablet PO ×2 (00:15→20:25)
[2022-09-16] MEDS: MELATONIN 3 MG TABLET PO ×2 (00:16→20:25)
[2022-09-16 03:12] LABS: Bedside Glucose 156 mg/dL (74-106)
[2022-09-16 05:48] LABS: Absolute Lymphocyte Count 1.06 X10^3/uL (0.83-4.51); Absolute Neutrophil Count 3.6 X10^3/uL (2.0-7.7); Basophil# 0.02 X10^3/uL; Basophil% 0.4 % (0-1); Eosinophils% 1.8 % (0-5); Hematocrit 28.4 % (37-47); Hemoglobin 8.6 g/dL (12.0-15.0); Lymphocyte # 1.06 X10^3/ul (0.83-4.51); Lymphocyte % 19.2 % (19-41); Mean Corp Hgb Conc 30.3 g/dL (32-36); Mean Corpuscular Hgb 29.6 pg (27.0-32.0); Mean Corpuscular Volume 97.6 fL (81-99); Mean Platelet Vol. 10.7 fl (6.2-12.0); Monocyte# 0.68 X10^3/uL; Monocyte% 12.3 % (0-10); NRBC Flagged by Analyzer 0 % (0-5); Neutrophil # 3.64 X10^3/uL (2.7-7.7); Neutrophil % 65.9 % (47-70); Platelet Count 255 K/mm3 (150-450); RBC Distribution Width CV 17.7 % (11.6-14.6); RBC Distribution Width SD 63.1 fl (35.1-43.9); Red Blood Count 2.91 M/mm3 (4.2-5.4); White Blood Count 5.5 K/mm3 (4.4-11.0)
[2022-09-16 06:00] VITALS: BMI 48.2
[2022-09-16] MEDS: Umeclidinium Bromide Inhaler 1 PUFF INHALATION (06:00)
[2022-09-16] MEDS: Pramipexole Di-HCl 0.25 MG Tablet 0.375 MG PO ×2 (06:05→17:33)
[2022-09-16 06:06] VITALS: BP 119/44; PULSE 73
[2022-09-16] MEDS: Metoprolol(XL)Succ 25 MG Tablet PO (06:06)
[2022-09-16] MEDS: Pantoprazole Sodium 40 MG Tablet PO ×2 (06:06→17:34)
[2022-09-16] MEDS: Furosemide 20 MG Tablet PO (06:06)
[2022-09-16] MEDS: Insulin Glargine-YFGN 100 UNIT/ML Pen 10 UNIT SC (06:07)
[2022-09-16] MEDS: Cholecalciferol (VIT D3) 25 MCG TABLET (1,000 UNITS) PO (06:07)
[2022-09-16] MEDS: Paroxetine 20 MG Tablet PO (06:07)
[2022-09-16] MEDS: Nystatin Powder 15gm Bottle 1 APPLIC TOPICAL ×2 (06:07→17:35)
[2022-09-16 06:08] LABS: Anion Gap 6 (5-15); BUN 21 mg/dL (7-18); BUN/Creat Ratio 17.1 RATIO (10-20); Calcium,Total 8.7 mg/dL (8.5-10.1); Chloride 111 mmol/L (98-107); Creatinine, Serum 1.23 mg/dL (0.55-1.02); EST Glomerular Filtration Rate 45 mL/min (>60); Est Glom Filt Rate - Afr Amer 55 mL/min (>60); Estimated Creatinine Clearance 32.22 ml/min; Glucose 143 mg/dL (74-106); Potassium 4.1 mmol/L (3.5-5.1); Sodium Level 144 mmol/L (136-145)
[2022-09-16 06:34] LABS: Bedside Glucose 135 mg/dL (74-106)
[2022-09-16] MEDS: Sucralfate 1 GM Tablet PO ×3 (06:51→17:33)
[2022-09-16] MEDS: Iron Polysaccharide Complex 150 MG CAPSULE PO (07:48)
[2022-09-16] MEDS: Ascorbic Acid 500 MG Tablet PO (07:48)
[2022-09-16] MEDS: Allopurinol 100 MG Tablet PO (07:48)
--- NOTE | 2022-09-16 07:48 | US_ITS ---
INDICATION: Right adnexal mass. EXAMINATION: Ultrasound US Pelvis Non-OB Complete TECHNIQUE: Transabdominal pelvic ultrasound was performed. Grayscale, spectral waveform, and color flow Doppler evaluation of the adnexa. COMPARISON: CT abdomen and pelvis 09/15/2022 FINDINGS: UTERUS: Anteverted. The uterus measures 6.1 x 4.2 x 2.9 cm. There is no uterine mass. The endometrial stripe is not visible. RIGHT OVARY: Not identified due to body habitus. Hypoechoic lesion posterior to the uterus on the right measures 5.3 x 4.8 x 4.6 cm without definite ovarian or other soft tissue component. LEFT OVARY: Not identified due to body habitus. FREE FLUID: None. US/Pelvic (Non ) IMPRESSION: Cystic lesion in the right adnexa without definite ovarian or other soft tissue component. Differential diagnosis includes both benign and malignant ovarian lesions. Consider further evaluation by pelvic MRI. Electronically Signed: Tone Peters MD at 17:15 EDT ,
--- NOTE | 2022-09-16 10:40 | CASEMGMT ---
Addendum entered by Laury Robert 09/16/22 15:24: [facility] can accept. Addendum entered by Laury Robert 09/16/22 14:49: provided HHC choices: [facility], [facility], [facility]. Referrals made via [facility]. Original Note: Social Work Pt requesting to DC home this weekend. IDT agreeable. SW spoke with pt and pt electing DC 09/19 with [facility]. SW provided printed list of skilled HHC agencies with quality and resource data via [email or web address] Guide. No DME needs. to transport. Plan: DC home with 09/19, [facility] PT/OT/SN Laury Robert ,OZZIE KEITAW
[2022-09-16 11:14] LABS: Bedside Glucose 197 mg/dL (74-106)
[2022-09-16 13:33] VITALS: BP 137/49; PULSE 76; RESP 16; TEMP 36.3; O2SAT 93
[2022-09-16 17:18] LABS: Bedside Glucose 121 mg/dL (74-106)
[2022-09-16] MEDS: APIXABAN 5 MG TABLET PO (17:33)
[2022-09-16 20:50] VITALS: O2SAT 93
--- NOTE | 2022-09-16 21:38 | DS.PCM_ITS ---
Providers Date of Admission: 08/19/22 Primary Care Physician: Dr. Aliya Kessler, Consultations 08/20/22 01:27 Consult: Onc/Wound/surgical services coordinator Routine Comment: Reason for Consult:: abdominal wound-post surgery 08/30/22 17:47 Consult: Gastroenterology Routine Consulting Provider: Catrachito Resendez Reason for Consult: positive ob EMERGENT Consult: No MD Notified: Yes Date Notified: 08/31/22 Time Notified: 15:39 Method of Notification: Answering Service Reason For Visit: S/P CELIAC/SMA THROMBECTOMY Diagnosis Discharge Diagnosis (1) Debility: Status: Acute Code(s): R53.81 - Other malaise (2) Mesenteric ischemia: Status: Acute Code(s): K55.9 - Vascular disorder of intestine, unspecified (3) Occlusion of celiac artery: Status: Acute Code(s): I70.8 - Atherosclerosis of other arteries (4) Occlusion of superior mesenteric artery: Status: Acute Code(s): K55.069 - Acute infarction of intestine, part and extent unspecified (5) New onset atrial fibrillation: Status: Acute Code(s): I48.91 - Unspecified atrial fibrillation (6) Heart failure with reduced ejection fraction: Status: Acute Code(s): I50.20 - Unspecified systolic (congestive) heart failure (7) Septic shock: Status: Acute Code(s): A41.9 - Sepsis, unspecified organism; R65.21 - Severe sepsis with septic shock (8) Acute kidney injury: Status: Acute Code(s): N17.9 - Acute kidney failure, unspecified (9) Bacteremia: Status: Acute Code(s): R78.81 - Bacteremia (10) Depression: Status: Acute Code(s): F32.A - Depression, unspecified (11) Restless leg syndrome: Status: Acute Code(s): G25.81 - Restless legs syndrome (12) Dyskinesia: Status: Acute Code(s): G24.9 - Dystonia, unspecified (13) COPD (chronic obstructive pulmonary disease): Status: Chronic Code(s): J44.9 - Chronic obstructive pulmonary disease, unspecified (14) Obstructive sleep apnea: Status: Acute Code(s): G47.33 - Obstructive sleep apnea (adult) (pediatric) (15) Severe pulmonary hypertension: Status: Acute Code(s): I27.20 - Pulmonary hypertension, unspecified (16) Anemia in chronic kidney disease: Status: Chronic Code(s): N18.9 - Chronic kidney disease, unspecified; D63.1 - Anemia in chronic kidney di sease (17) Essential (primary) hypertension: Status: Acute Code(s): I10 - Essential (primary) hypertension (18) Hyperlipidemia: Status: Acute Code(s): E78.5 - Hyperlipidemia, unspecified (19) Type 2 diabetes mellitus: Status: Acute Code(s): E11.9 - Type 2 diabetes mellitus without complications (20) Gout: Status: Acute Code(s): M10.9 - Gout, unspecified (21) GERD (gastroesophageal reflux disease): Status: Acute Code(s): K21.9 - Gastro-esophageal reflux disease without esophagitis Plan 71 year old female with below past medical history hospitalized for mesenteric ischemia status post celiac/SMA thrombectomy, complicated by new onset atrial fibrillation, septic shock, bacteremia, acute kidney injury requiring CRRT, admitted to TCU with debility, here for rehabilitation, strengthening, prior to discharge home with . * Debility - PT/OT. * Pain - Tylenol 1000mg q6h prn pain (1-10). * Bowel - senna/colace 1 tablet bid, Magnesium citrate 300ml po daily prn. * Adult immunization - Administer pneumonia vaccine, covid19 vaccine, flu vaccine as appropriate. * DVT prophylaxis - on Eliquis. * COPD - Incruse 1 puff daily, Albuterol 1 puff q6h prn. * Gout - Allopurinol 100mg daily. * Atrial fibrillation - Metoprolol succinate 25mg daily, Eliquis 5mg bid. * Hyperlipidemia - Atorvastatin 40mg qhs. * PAOD - Plavix 75mg daily, Eliquis 5mg bid. * Iron deficiency anemia - Ferrex 150mg daily, Vitamin C 500mg daily. * Heart failure with reduced ejection fraction (35%) - Metoprolol succinate 25mg daily, Furosemide 20mg daily prn. * Diabetes Mellius II - Glargine 10 units daily. * Insomnia - Melatonin 3mg qhs. * Hypotension - Midodrine 2.5mg tid. * Tinea Corporis - Nystatin topical bid. * Gastric ulcer - Pantoprazole 40mg bid, Sucralfate 1gm tidac. 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 * Restless leg syndrome - Mirapex 0.375mg bid. * Vitamin D deficiency - D3 25mcg daily. * Sore throat - Cepacol 1 lozenge q2h prn. Medications at Discharge Home Medications allopurinol 100 mg tablet 100 mg PO DAILY Gout 08/19/22 cholecalciferol (vitamin D3) 25 mcg (1,000 unit) capsule 25 mcg PO DAILY Supplement 08/19/22 insulin glargine 100 unit/mL (3 mL) subcutaneous pen (Lantus Solostar U-100 Insulin) 10 unit subcut .qAM Diabetes 08/19/22 melatonin 3 mg tablet 3 mg PO QHS insomnia 08/19/22 paroxetine HCl 20 mg tablet 20 mg PO DAILY Anxiety 08/19/22 ropinirole 0.25 mg tablet 0.75 mg PO BID Restless legs 08/19/22 tiotropium bromide 18 mcg capsule with inhalation device (Spiriva with HandiHaler) 1 cap inhalation DAILY SOB 08/19/22 torsemide 10 mg tablet 10 mg PO DAILY PRN Diuretic 08/19/22 apixaban 5 mg tablet (Eliquis) 5 mg PO BID 30 days #60 tabs 09/16/22 ascorbic acid (vitamin C) 500 mg tablet 500 mg PO BREAKFAST 30 days #30 tabs 09/16/22 atorvastatin 40 mg tablet 40 mg PO QHS 30 days #30 tabs 09/16/22 clopidogrel 75 mg tablet 75 mg PO DAILY 30 days #30 tabs 09/16/22 metoprolol succinate 25 mg tablet,extended release 24 hr 25 mg PO DAILY 30 days #30 tabs 09/16/22 midodrine 5 mg tablet 2.5 mg (1/2 x 5 mg) PO TIDCM 30 days #45 tabs 09/16/22 pantoprazole 40 mg tablet,delayed release 40 mg PO BID 30 days #60 tabs 09/16/22 polysaccharide iron complex 150 mg iron capsule (Ferrex) 150 mg PO DAILY@0800 30 days #30 caps 09/16/22 sucralfate 1 gram tablet 1 g PO TIDAC 30 days #90 tabs 09/16/22 Hospital Course Operations None Procedures EGD (x 2.) Summary of Care Provided Minutes Spent on Discharge: 35 Hospital Course: 71 year old female with below past medical history hospitalized for mesenteric ischemia status post celiac/SMA thrombectomy, complicated by new onset atrial fibrillation, septic shock, bacteremia, acute kidney injury requiring CRRT, admitted to TCU with debility, here for rehabilitation, strengthening, prior to discharge home with . 08/27/2022 Transfuse 2 units PRBC for hemoglobin 6.8, stool occult positive. 09/01/2022 Dr. Resendez EGD treated 2 oozing gastric ulcers. 09/04/2022 Transfuse 2 units PRBC hemoglobin 7.6, stool occult positive. 09/15/2022 Dr. Resendez EGWanda treated bleeding angiodysplastic gastric lesion. 09/15/2022 CT abdomen/pelvis acute ischemic infarcts spleen, upper mesentery, left retroperitoneal fat. Thought sequela to recent hospitalization. Also Right adnexal mass. 09/16/2022 Pelvic ultrasound right adnexa cyst, MRI pelvis recommended. Discharge home with 09/19/2022, Home Health Care PT/OT/SN. Physical Exam Const alert General Appearance: cooperative HEENT normocephalic Eyes PERRL and EOMs intact bilaterally Neck supple, no JVD and no carotid bruits Resp normal respiratory effort, normal air movement and clear to auscultation bilaterally Cardio regular rate and regular rhythm GI normal to inspection, nondistended, normoactive bowel sounds, non-tender and non-distended Extremity normal capillary refill General Extremity: Negative for edema Skin no rashes or lesions noted General Skin Exam: no breakdown Psych affect normal Appearance: appropriate Weight / BMI Weight Weight: 119.476 kg Body Mass Index (BMI) 48.2 ABG / Lab / Microbiology Data 09/16/22 05:16 09/16/22 05:16 Laboratory: Laboratory Results - last 24 hr 09/16/22 00:24: POC Glucose 156 H 09/16/22 05:16: WBC 5.5, RBC 2.91 L, Hgb 8.6 L, Hct 28.4 L, MCV 97.6, MCH 29.6, MCHC 30.3 L, RDW Std Deviation 63.1 H, RDW Coeff of Faraz 17.7 H, Plt Count 255, MPV 10.7, Immature Gran % (Auto) 0.400, Neut % (Auto) 65.9, Lymph % (Auto) 19.2, [place] % (Auto) 12.3 H, Eos % (Auto) 1.8, Baso % (Auto) 0.4, Absolute Neuts (auto) 3.6, Absolute Lymphs (auto) 1.06, Nucleated RBC % 0, Sodium 144, Potassium 4.1, Chloride 111 H, Carbon Dioxide 27.0, Anion Gap 6, BUN 21 H, Creatinine 1.23 H, Estim Creat Clear Calc 32.22, Est GFR (MDRD) Af Amer 55 L, Est GFR (MDRD) Non-Af 45 L, BUN/Creatinine Ratio 17.1, Glucose 143 H, Calcium 8.7 09/16/22 06:03: POC Glucose 135 H 09/16/22 10:54: POC Glucose 197 H 09/16/22 16:59: POC Glucose 121 H Microbiology: Microbiology 09/08/22 19:00 Stool Stool Occult Blood (JAVID) - Final Occult Blood Positive 08/28/22 15:50 Urine, Catheterized Urine Culture - Final Klebsiella pneumoniae sp pneum Escherichia coli 08/30/22 11:49 Stool Stool Occult Blood (JAVID) - Final Occult Blood Positive Radiography Diagnostic Testing: Radiology Impression Pelvis Ultrasound 09/16/22 07:48 IMPRESSION: Cystic lesion in the right adnexa without definite ovarian or other soft tissue component. Differential diagnosis includes both benign and malignant ovarian lesions. Consider further evaluation by pelvic MRI. Electronically Signed: Tone Peters MD at 17:15 EDT Reading Location ID and State: [address] [place] [address] Tel , Service support , D/C Instructions Discharge Diet: No restrictions Discharge Activity: Return to Normal Activity, May Shower and Use Walker Weight Bearing Status: Weight bearing as tolerated Call your doctor if you observe: Fever of 101 or Higher, Inability to urinate, Inability to have a bowel movement, Shortness of breath, Dizziness, Fainting spells, Swelling in the ankles, Chest pain and Uncontrolled pain Additional Instructions: Discharge home with 09/19/2022, Home Health Care PT/OT/SN. Please Follow Up With: Dr. Anitha Bar When: As scheduled. Meaningful Use Info Meaningful Use Diagnoses (Choose all that apply): None applicable Discharge Plan Admission Admit Date/Time: 08/19/22 19:55 Primary Reason for Your Visit: Debility. Attending Provider: Lencho Payan Chi Primary Care Provider: Aliya Kesselr Consulting Providers: FriendCatrachito Instructions Additional Instructions / Restrictions: Discharge home with 09/19/2022, Home Health Care PT/OT/SN. Discharge Orders/Prescriptions Prescriptions: New atorvastatin 40 mg Tablet 40 mg PO QHS 30 Days Qty: 30 0RF midodrine 5 mg Tablet 2.5 mg PO TIDCM 30 Days Qty: 45 0RF clopidogrel 75 mg Tablet 75 mg PO DAILY 30 Days Qty: 30 0RF ascorbic acid (vitamin C) 500 mg Tablet 500 mg PO BREAKFAST 30 Days Qty: 30 0RF metoprolol succinate 25 mg Tablet Extended Release 24 Hr 25 mg PO DAILY 30 Days Qty: 30 0RF Eliquis 5 mg Tablet 5 mg PO BID 30 Days Qty: 60 0RF polysaccharide iron complex [Ferrex 150] 150 mg iron Capsule 150 mg PO DAILY@0800 30 Days Qty: 30 0RF sucralfate 1 gram Tablet 1 g PO TIDAC 30 Days Qty: 90 0RF pantoprazole 40 mg Tablet,Delayed Release (Dr/Ec) 40 mg PO BID 30 Days Qty: 60 0RF Continued allopurinol 100 mg tablet 100 mg PO DAILY insulin glargine [Lantus Solostar U-100 Insulin] 100 unit/mL (3 mL) insulin pen 10 unit SUBCUT .qAM paroxetine HCl 20 mg tablet 20 mg PO DAILY Spiriva with HandiHaler 18 mcg capsule, w/inhalation device 1 cap INHALATION DAILY cholecalciferol (vitamin D3) 25 mcg (1,000 unit) capsule 25 mcg PO DAILY melatonin 3 mg tablet 3 mg PO QHS ropinirole 0.25 mg tablet 0.75 mg PO BID torsemide 10 mg tablet 10 mg PO DAILY PRN (Reason: Diuretic) Rx Instructions: Administer if weight increases 5lbs from baseline, if there is increasing O2 need, or if obvious worsened bilateral lower extremity edema. Discontinued atorvastatin 40 mg tablet 40 mg PO .qevening ezetimibe 10 mg tablet 10 mg PO .qevening Patient Comments: TAKE 1 TABLET BY MOUTH EVERY DAY FOR 90 DAYS metoprolol succinate 50 mg tablet extended release 24 hr 50 mg PO DAILY pantoprazole 40 mg tablet,delayed release (DR/EC) 40 mg PO DAILY Patient Comments: TAKE 1 TABLET BY MOUTH EVERY DAY FOR 90 DAYS albuterol 90 mcg/actuation aerosol 108 mcg inhalation Q6H PRN apixaban 5 mg tablet 5 mg PO BID clonazepam 0.5 mg tablet 0.25 mg PO QHS Rx Instructions: administer 30 minutes before bedtime x 3 days clopidogrel 75 mg tablet 75 mg PO DAILY ferrous sulfate 325 mg (65 mg iron) tablet 325 mg PO QODAY hydralazine 20 mg/mL solution 10 mg IV Q6H PRN (Reason: hypertension) Rx Instructions: SBP>160 midodrine 2.5 mg tablet 2.5 mg PO DAILY PRN Rx Instructions: do not give last dose of day after 6PM or within 4 hrs of bedtime, for SBP<100 nystatin 100,000 unit/gram cream 1 applic topical BID Rx Instructions: Apply to affected area thiamine mononitrate (vit B1) 100 mg tablet 100 mg PO DAILY Referrals / Follow Up: Aliya Kessler DO [Primary Care Provider] - 09/22/22 12:30 pm Disposition Disposition (needs filled in before D/C Order can be placed): Home Health Service
[2022-09-16 21:55] LABS: Bedside Glucose 162 mg/dL (74-106)
[2022-09-17] VITALS (8 sets, daily range): BP systolic 131–146; BP diastolic 47–62; PULSE 65–68; RESP 16; TEMP 36.6; O2SAT 90–96; BMI 48.7
[2022-09-17] MEDS: Clopidogrel Bisulfate 75 MG Tablet PO (05:27)
[2022-09-17] MEDS: Pramipexole Di-HCl 0.25 MG Tablet 0.375 MG PO ×2 (05:27→19:11)
[2022-09-17] MEDS: Paroxetine 20 MG Tablet PO (05:27)
[2022-09-17] MEDS: Senna/Docusate Sodium 1 Tablet PO (05:28)
[2022-09-17] MEDS: Metoprolol(XL)Succ 25 MG Tablet PO (05:28)
[2022-09-17] MEDS: Cholecalciferol (VIT D3) 25 MCG TABLET (1,000 UNITS) PO (05:28)
[2022-09-17] MEDS: Sucralfate 1 GM Tablet PO ×3 (05:28→16:59)
[2022-09-17] MEDS: Pantoprazole Sodium 40 MG Tablet PO ×2 (05:28→19:12)
[2022-09-17] MEDS: APIXABAN 5 MG TABLET PO ×2 (05:28→19:10)
[2022-09-17] MEDS: Furosemide 20 MG Tablet PO (05:28)
[2022-09-17] MEDS: Nystatin Powder 15gm Bottle 1 APPLIC TOPICAL ×2 (05:31→20:34)
[2022-09-17 05:56] LABS: Hematocrit 28.7 % (37-47); Hemoglobin 8.6 g/dL (12.0-15.0)
[2022-09-17] MEDS: Umeclidinium Bromide Inhaler 1 PUFF INHALATION (06:23)
[2022-09-17] MEDS: Insulin Glargine-YFGN 100 UNIT/ML Pen 10 UNIT SC (06:25)
[2022-09-17 06:36] LABS: Bedside Glucose 160 mg/dL (74-106)
[2022-09-17] MEDS: Iron Polysaccharide Complex 150 MG CAPSULE PO (07:55)
[2022-09-17] MEDS: Allopurinol 100 MG Tablet PO (07:55)
[2022-09-17] MEDS: Ascorbic Acid 500 MG Tablet PO (07:55)
[2022-09-17] MEDS: 0.9% Saline Lock 10 ML Syringe IV (09:49)
--- NOTE | 2022-09-17 09:53 | NURSING ---
SALINE LOCK REMOVED DUE TO INFILTRATION.
[2022-09-17 11:45] LABS: Bedside Glucose 172 mg/dL (74-106)
--- NOTE | 2022-09-17 13:29 | MDS.RN ---
Pain interview for MDS completed.
--- NOTE | 2022-09-17 16:18 | NURSING ---
VARINDERRN/WOUND NURSE CHANGED PT DRESSING TO ABDOMINAL TODAY.
[2022-09-17 16:58] LABS: Bedside Glucose 132 mg/dL (74-106)
[2022-09-17] MEDS: Atorvastatin Calcium 40 MG Tablet PO (20:34)
[2022-09-17] MEDS: MELATONIN 3 MG TABLET PO (20:34)
[2022-09-17 21:37] LABS: Bedside Glucose 155 mg/dL (74-106)
[2022-09-18 06:00] VITALS: BMI 48.6
[2022-09-18] MEDS: Umeclidinium Bromide Inhaler 1 PUFF INHALATION (06:01)
[2022-09-18 06:02] VITALS: BP 131/43; PULSE 65
[2022-09-18] MEDS: Pramipexole Di-HCl 0.25 MG Tablet 0.375 MG PO ×2 (06:02→17:51)
[2022-09-18] MEDS: Metoprolol(XL)Succ 25 MG Tablet PO (06:02)
[2022-09-18] MEDS: Clopidogrel Bisulfate 75 MG Tablet PO (06:02)
[2022-09-18] MEDS: Furosemide 20 MG Tablet PO (06:03)
[2022-09-18] MEDS: Pantoprazole Sodium 40 MG Tablet PO ×2 (06:03→17:50)
[2022-09-18] MEDS: Cholecalciferol (VIT D3) 25 MCG TABLET (1,000 UNITS) PO (06:03)
[2022-09-18] MEDS: Paroxetine 20 MG Tablet PO (06:03)
[2022-09-18] MEDS: Senna/Docusate Sodium 1 Tablet PO (06:03)
[2022-09-18] MEDS: APIXABAN 5 MG TABLET PO ×2 (06:04→17:50)
[2022-09-18] MEDS: Sucralfate 1 GM Tablet PO ×3 (06:04→17:00)
[2022-09-18] MEDS: Insulin Glargine-YFGN 100 UNIT/ML Pen 10 UNIT SC (06:10)
[2022-09-18] MEDS: Nystatin Powder 15gm Bottle 1 APPLIC TOPICAL ×2 (06:12→20:46)
[2022-09-18 06:27] LABS: Hematocrit 27.4 % (37-47); Hemoglobin 8.1 g/dL (12.0-15.0)
[2022-09-18 06:30] LABS: Bedside Glucose 130 mg/dL (74-106)
[2022-09-18] MEDS: Allopurinol 100 MG Tablet PO (08:12)
[2022-09-18] MEDS: Ascorbic Acid 500 MG Tablet PO (08:12)
[2022-09-18] MEDS: Iron Polysaccharide Complex 150 MG CAPSULE PO (08:12)
[2022-09-18] MEDS: 0.9% Saline Lock 10 ML Syringe IV (08:26)
[2022-09-18 08:28] VITALS: BP 123/39; PULSE 68
--- NOTE | 2022-09-18 10:43 | CASEMGMT ---
Social Work Brief interview for mental status (BIMS) and resident mood interview (PHQ-9) completed on this day. BIMS score 02/05. PHQ-9 score 09/17. Jd HORNE, NELSONS
[2022-09-18 11:32] VITALS: BP 144/68; PULSE 72
[2022-09-18 11:54] LABS: Bedside Glucose 150 mg/dL (74-106)
[2022-09-18 14:52] VITALS: BP 124/45; PULSE 66; RESP 16; TEMP 36.3; O2SAT 96
--- NOTE | 2022-09-18 15:01 | NURSING ---
CHANGED PT DRESSING TO ABDOMINAL. PT TOLERATED WELL. NO S/S OF INFECTION.
[2022-09-18 16:43] LABS: Bedside Glucose 163 mg/dL (74-106)
[2022-09-18] MEDS: Atorvastatin Calcium 40 MG Tablet PO (20:47)
[2022-09-18] MEDS: MELATONIN 3 MG TABLET PO (20:48)
[2022-09-18 22:28] LABS: Bedside Glucose 144 mg/dL (74-106)
[2022-09-19 05:27] LABS: Hematocrit 27.1 % (37-47); Hemoglobin 8.1 g/dL (12.0-15.0)
[2022-09-19] MEDS: Umeclidinium Bromide Inhaler 1 PUFF INHALATION (05:48)
[2022-09-19] MEDS: Insulin Glargine-YFGN 100 UNIT/ML Pen 10 UNIT SC (05:49)
[2022-09-19] MEDS: Pramipexole Di-HCl 0.25 MG Tablet 0.375 MG PO (05:50)
[2022-09-19 05:51] VITALS: BP 132/51; PULSE 65
[2022-09-19] MEDS: APIXABAN 5 MG TABLET PO (05:51)
[2022-09-19] MEDS: Pantoprazole Sodium 40 MG Tablet PO (05:51)
[2022-09-19] MEDS: Metoprolol(XL)Succ 25 MG Tablet PO (05:51)
[2022-09-19] MEDS: Cholecalciferol (VIT D3) 25 MCG TABLET (1,000 UNITS) PO (05:51)
[2022-09-19] MEDS: Furosemide 20 MG Tablet PO (05:51)
[2022-09-19] MEDS: Paroxetine 20 MG Tablet PO (05:52)
[2022-09-19] MEDS: Clopidogrel Bisulfate 75 MG Tablet PO (05:52)
[2022-09-19] MEDS: Senna/Docusate Sodium 1 Tablet PO (05:52)
[2022-09-19] MEDS: Sucralfate 1 GM Tablet PO (05:52)
[2022-09-19] MEDS: Nystatin Powder 15gm Bottle 1 APPLIC TOPICAL (05:56)
[2022-09-19 06:00] VITALS: BMI 48.6
[2022-09-19 06:13] LABS: Bedside Glucose 132 mg/dL (74-106)
[2022-09-19 06:59] VITALS: O2SAT 92
[2022-09-19] MEDS: Allopurinol 100 MG Tablet PO (08:34)
[2022-09-19] MEDS: Ascorbic Acid 500 MG Tablet PO (08:34)
[2022-09-19] MEDS: Iron Polysaccharide Complex 150 MG CAPSULE PO (08:35)
[2022-09-19 09:58] VITALS: PULSE 69; RESP 19; O2SAT 98
[2022-09-19 10:37] VITALS: BP 121/69; PULSE 69; RESP 16; TEMP 36.6; O2SAT 98
== END 2022-09-19 10:40 | disposition home health service (06) | DRG 949 ==
PROVIDERS: Internal Medicine Gastroenterology; Admitting Provider Family Medicine Geriatric Medicine; PCP Family Medicine; Visit Provider Family Medicine Geriatric Medicine
DX: Z48.812 Encounter for surgical aftercare following surgery on the circulatory system (principal); K55.069 Acute infarction of intestine, part and extent unspecified; I13.0 Hypertensive heart and chronic kidney disease with heart failure and stage 1 through stage 4 chronic kidney disease, or unspecified chronic kidney disease; I50.22 Chronic systolic (congestive) heart failure; Z68.42 Body mass index [BMI] 45.0-49.9, adult; I27.20 Pulmonary hypertension, unspecified; D63.1 Anemia in chronic kidney disease; I48.91 Unspecified atrial fibrillation; D50.9 Iron deficiency anemia, unspecified; B35.4 Tinea corporis; E11.22 Type 2 diabetes mellitus with diabetic chronic kidney disease; E11.51 Type 2 diabetes mellitus with diabetic peripheral angiopathy without gangrene; Z79.4 Long term (current) use of insulin; J44.9 Chronic obstructive pulmonary disease, unspecified; E66.01 Morbid (severe) obesity due to excess calories; K21.9 Gastro-esophageal reflux disease without esophagitis; E78.2 Mixed hyperlipidemia; G25.81 Restless legs syndrome; G47.33 Obstructive sleep apnea (adult) (pediatric); M10.9 Gout, unspecified; E55.9 Vitamin D deficiency, unspecified; N18.9 Chronic kidney disease, unspecified; F32.A Depression, unspecified; I70.8 Atherosclerosis of other arteries; Z79.01 Long term (current) use of anticoagulants; Z87.891 Personal history of nicotine dependence; Z79.02 Long term (current) use of antithrombotics/antiplatelets; Z79.899 Other long term (current) drug therapy; Z99.81 Dependence on supplemental oxygen; K25.9 Gastric ulcer, unspecified as acute or chronic, without hemorrhage or perforation
CPT/HCPCS: 36415; 36430; 76856; 80048; 81001; 82274; 82565; 82728; 82962; 83540; 83550; 84466; 85014; 85018; 85025; 85045; 86850; 86900; 86901; 86920; 86922; 87077; 87086; 87088; 87186; 92507; 92523; 97110; 97116; 97129; 97130; 97162; 97166; 97530; 97535; 97802; J7040; J7050; P9016; A4216; J1940; J2916

== ENCOUNTER 2022-08-27 08:55 | Outpatient (CLI) | payer MEDICARE, OTHER, SELFPAY ==
[2022-08-27 09:01] VITALS: BP 111/52; PULSE 78; RESP 18; TEMP 36.3; O2SAT 97; BMI 46.3
[2022-08-27] MEDS: 0.9% NaCl Peripheral Flush Adult/Peds IV (09:05)
[2022-08-27 09:43] VITALS: BP 131/57; PULSE 74; RESP 16; TEMP 36.3; O2SAT 94
[2022-08-27 10:43] VITALS: BP 144/55; PULSE 55; RESP 18; TEMP 36.7; O2SAT 96
[2022-08-27 11:27] VITALS: BP 146/65; PULSE 79; RESP 18; TEMP 36.7; O2SAT 96
[2022-08-27] MEDS: Furosemide 20 MG/2 ML VIAL IV (11:38)
[2022-08-27 12:28] VITALS: BP 127/61; PULSE 70; RESP 16; TEMP 36.5; O2SAT 95
[2022-08-27 13:28] VITALS: BP 138/59; PULSE 73; RESP 16; TEMP 36.4; O2SAT 95
[2022-08-27 17:40] LABS: Bedside Glucose 139 mg/dL (74-106)
[2022-08-28 13:03] LABS: Bedside Glucose 207 mg/dL (74-106)
== END 2022-08-27 08:56 | disposition home or self-care (01) ==
PROVIDERS: PCP Family Medicine; Referring Provider Family Medicine Geriatric Medicine; Visit Provider Family Medicine Geriatric Medicine
DX: D64.89 Other specified anemias (principal)
CPT/HCPCS: 96374; 36430; 82962; 86850; 86900; 86901; 86920; 86922; J7040; P9016; A4216; J1940

== ENCOUNTER 2022-09-01 14:15 | Day surgery (SDC) | payer MEDICARE, OTHER, SELFPAY ==
--- NOTE | 2022-09-01 | GASB_PTH ---
PATIENT: JORDYN ABEL LOC: EN U#:[id number] AGE/SX: 71/F ROOM: RE09/01/[address]: Dr. Catrachito Resendez DO : 1950 BED: DIS: 09/01/2022 SPEC #: [id number] RECD: 09/01/22 19:00 STATUS: CUONG TORSTEN #: [id number] SYEDA: 09/01/22 00:[address]: Catrachito Resendez DEPT: SURGICAL PATHOLOGY RECD BY: Dorian Vega ENTERED: 09/02/22 09:33 SP TYPE: Gastric Bx OTHR DR: Dr. Aliya eKssler DO Tissues: Gastric mucous membrane Procedures: Surgery Specimen Level IV HEADER OPERATION: EGD with biopsies and cautery PRE-OP DIAGNOSIS: GI bleed TISSUE SUBMITTED: Incisor region MICROSCOPIC DIAGNOSIS Incisor region, biopsy: Mild gastritis. COMMENT The results of immunohistochemistry for Helicobacter pylori will be reported separately ([id number]). MICROSCOPIC DESCRIPTION Slides are reviewed. The specimen shows fragments of gastric mucosa with chronic inflammatory cell infiltrates in the lamina propria consisting of lymphocytes and plasma cells, consistent with mild chronic gastritis. GROSS DESCRIPTION Received is one container labeled with the patient name and designated incisor region. The specimen consists of one irregular fragment of light gonsalves soft tissue that measures 0.5 x 0.4 x 0.1 cm. The specimen is totally submitted in one cassette. / SJ:cc 09/02/22 TC:3 CPT: 20072
[2022-09-01 14:40] VITALS: BP 137/55; PULSE 55; RESP 18; TEMP 36.9; O2SAT 93; BMI 47.0
[2022-09-01] MEDS: Lactated Ringers 1,000 ML 15 ML IV (15:08)
[2022-09-01 15:17] LABS: Bedside Glucose 117 mg/dL (74-106)
[2022-09-01 17:30] VITALS: BP 110/67; BP 137/55; PULSE 74; RESP 16; TEMP 36.5; O2SAT 100
[2022-09-01 17:35] VITALS: BP 130/52; BP 137/55; PULSE 71; RESP 16; O2SAT 100
--- NOTE | 2022-09-01 17:39 | OP.CCLET_ITS ---
09/01/2022 Aliya Kessler Do Re : Upper GI endoscopy procedure for Anel Sharp Dear Dr. Kessler This procedure was performed on Thursday, September 01, 2022. My impressions and recommendations are as follows: Impressions : - Normal esophagus. - Small hiatal hernia. - Granular gastric mucosa. Biopsied. - Oozing gastric ulcer with pigmented material. Injected. - Oozing gastric ulcer with a visible vessel. Treated with a monopolar probe. - Normal first portion of the duodenum. Recommendations : - Return patient to referring hospital for ongoing care. - Resume previous diet. - Continue present medications. - Await pathology results. -Protonix 40 mg p.o. twice daily x8 weeks -Carafate 1 g p.o. 3 times a day x4 weeks My findings are described in the full procedure note, which is enclosed. If I can be of further assistance, please feel free to contact me at . Sincerely, Catrachito Resendez DO 09/01/2022 5:38:40 PM This report has been signed electronically.
--- NOTE | 2022-09-01 17:39 | OP.EGD_ITS ---
Patient Name: Anel Sharp Procedure Date: 09/01/2022 5:10 PM Date of : 1950 Age: 71 Procedure: Upper GI endoscopy Indications: Iron deficiency anemia, Melena Providers: Catrachito Resendez DO Medicines: Monitored Anesthesia Care Patient Profile: This is a 71 year old female. Refer to note in patient chart for documentation of history and physical. Patient has symptoms of acute dyspepsia and acute nausea. Complications: No immediate complications. Procedure: Pre-Anesthesia Assessment: - Prior to the procedure, a History and Physical was performed, and patient medications and allergies were reviewed. The risks and benefits of the procedure and the sedation options and risks were discussed with the patient. All questions were answered and informed consent was obtained. Patient identification and proposed procedure were verified by the physician. Mental Status Examination: normal. Prophylactic Antibiotics: The patient does not require prophylactic antibiotics. Prior Anticoagulants: The patient has taken no previous anticoagulant or antiplatelet agents. After reviewing the risks and benefits, the patient was deemed in satisfactory condition to undergo the procedure. The anesthesia plan was to use monitored anesthesia care (MAC). Immediately prior to administration of medications, the patient was re-assessed for adequacy to receive sedatives. The heart rate, respiratory rate, oxygen saturations, blood pressure, adequacy of pulmonary ventilation, and response to care were monitored throughout the procedure. The physical status of the patient was re-assessed after the procedure. After obtaining informed consent, the endoscope was passed under direct vision. Throughout the procedure, the patient's blood pressure, pulse, and oxygen saturations were monitored continuously. The Endoscope was introduced through the mouth, and advanced to the second part of duodenum. The upper GI endoscopy was accomplished without difficulty. The patient tolerated the procedure well. Scope In: 5:15:16 PM Scope Out: 5:24:08 PM Total Procedure Duration Time 0 hours 8 minutes 52 seconds Findings: The examined esophagus was normal. A small hiatal hernia was present. Diffuse granular mucosa was found in the gastric body, at the incisura and in the gastric antrum. Biopsies were taken with a cold forceps for histology. Biopsies were taken with a cold forceps for histology. Verification of patient identification for the specimen was done. Estimated blood loss was minimal. One oozing cratered gastric ulcer with pigmented material was found on the greater curvature of the gastric body. The lesion was 12 mm in largest dimension. Area was successfully injected with 5 mL of a 1:10,000 solution of epinephrine for drug delivery. Estimated blood loss was minimal. One oozing cratered gastric ulcer with a visible vessel was found on the anterior wall of the gastric body. The lesion was 3 mm in largest dimension. Coagulation for hemostasis using monopolar probe was successful. Estimated blood loss was minimal. The first portion of the duodenum was normal. Impression: - Normal esophagus. - Small hiatal hernia. - Granular gastric mucosa. Biopsied. - Oozing gastric ulcer with pigmented material. Injected. - Oozing gastric ulcer with a visible vessel. Treated with a monopolar probe. - Normal first portion of the duodenum. Recommendation: - Return patient to referring hospital for ongoing care. - Resume previous diet. - Continue present medications. - Await pathology results. -Protonix 40 mg p.o. twice daily x8 weeks -Carafate 1 g p.o. 3 times a day x4 weeks Procedure Code(s): --- Professional --- 50575, 59, Esophagogastroduodenoscopy, flexible, transoral; with control of bleeding, any method 96532, 59, Esophagogastroduodenoscopy, flexible, transoral; with directed submucosal injection(s), any substance 42756, 51, Esophagogastroduodenoscopy, flexible, transoral; with biopsy, single or multiple CPT copyright 2017 [employer]. All rights reserved. The codes documented in this report are preliminary and upon estimator paperboard boxes review may be revised to meet current compliance requirements. Catrachito Resendez DO 09/01/2022 5:38:40 PM This report has been signed electronically. Number of Addenda: 0 Note Initiated On: 09/01/2022 5:10 PM
[2022-09-01 17:40] VITALS: BP 117/45; BP 137/55; PULSE 69; RESP 16; O2SAT 100
[2022-09-01 17:45] VITALS: BP 121/55; BP 137/55; PULSE 66; RESP 16; TEMP 36.4; O2SAT 100
[2022-09-01 18:10] VITALS: BP 116/58; BP 137/55; PULSE 72; RESP 16; TEMP 36.4; O2SAT 98
--- NOTE | 2022-09-02 | IMM_PTH ---
PATIENT: JORDYN ABEL LOC: EN U#:[id number] AGE/SX: 71/F ROOM: RE09/01/[address]: Dr. Catrachito Resendez DO : 1950 BED: DIS: 09/01/2022 SPEC #: [id number] RECD: 09/03/22 11:04 STATUS: CUONG REMorales #: [id number] SYEDA: 09/02/22 00:[address]: Catrachito Resendez DEPT: IMMUNOHISTOCHEMISTRY RECD BY: Kassy Morgan ENTERED: 09/03/22 11:05 SP TYPE: IMMUNO OTHR DR: Dr. Aliya Kessler DO Tissues: Gastric mucous membrane Procedures: H Pylori (initial) PHYSICIAN & INSTITUTION [place] [id number] SPECIMEN INFORMATION: Tissue Source: Incisor region Clinical Info: GI bleed Specimen Number: [id number] CPT code: 62756 METHODOLOGY: Deparaffinized sections of prefer/formalin-fixed tissue or PAP/DQ stained slides are incubated with monoclonal/polyclonal antibodies/oligonucleotide probes. Localization is made via biotin free immunoperoxidase method. Appropriate controls are performed and reacted as expected. Results on target cell population are indicated in the following table: RESULTS: ANTIBODY / CLONE RESULT H Pylori (polyclonal) negative These tests were developed and their performance characteristics determined by [facility]. They may not have been cleared or approved by the [place]. Food and Drug Administration. The FDA has determined that such clearance or approval is not necessary. The above immunohistochemical/dualISH markers are ordered and reviewed by the Pathologist. INTERPRETATION: Incisor region, biopsy: Negative for Helicobacter pylori organisms. SJ:young 09/04/22
[2022-09-02 07:12] LABS: Bedside Glucose 117 mg/dL (74-106)
== END 2022-09-01 18:13 | disposition home or self-care (01) ==
LOC: EN 14:17 → AC 14:18
PROVIDERS: PCP Family Medicine; Referring Provider Family Medicine; Visit Provider Internal Medicine Gastroenterology
PROC: 0DJ08ZZ Inspection of Upper Intestinal Tract, Via Natural or Artificial Opening Endoscopic (ICD-10-PCS; CPT 43235; principal; 2022-09-01 15:25)
DX: K44.9 Diaphragmatic hernia without obstruction or gangrene (principal); J44.9 Chronic obstructive pulmonary disease, unspecified; I50.32 Chronic diastolic (congestive) heart failure; I13.0 Hypertensive heart and chronic kidney disease with heart failure and stage 1 through stage 4 chronic kidney disease, or unspecified chronic kidney disease; E11.22 Type 2 diabetes mellitus with diabetic chronic kidney disease; I48.91 Unspecified atrial fibrillation; E66.01 Morbid (severe) obesity due to excess calories; Z79.4 Long term (current) use of insulin; D50.9 Iron deficiency anemia, unspecified; K25.4 Chronic or unspecified gastric ulcer with hemorrhage; K21.9 Gastro-esophageal reflux disease without esophagitis; Z79.01 Long term (current) use of anticoagulants; N18.9 Chronic kidney disease, unspecified; D63.1 Anemia in chronic kidney disease; Z79.899 Other long term (current) drug therapy; Z87.891 Personal history of nicotine dependence
CPT/HCPCS: 43239; 43255; 82962; 88305; 88342; J7120

== ENCOUNTER 2022-09-04 11:22 | Outpatient (CLI) | payer MEDICARE, OTHER, SELFPAY ==
[2022-09-04] VITALS (8 sets, daily range): BP systolic 108–136; BP diastolic 39–56; PULSE 66–72; RESP 16–18; TEMP 35.7–36.2; O2SAT 96–100; BMI 47.9
[2022-09-04] MEDS: Furosemide 20 MG/2 ML VIAL IV (14:51)
[2022-09-04 17:22] LABS: Bedside Glucose 177 mg/dL (74-106)
== END 2022-09-04 11:23 | disposition home or self-care (01) ==
LOC: MEDOUTP 11:22
PROVIDERS: PCP Family Medicine; Referring Provider Family Medicine Geriatric Medicine; Visit Provider Family Medicine Geriatric Medicine
DX: K92.2 Gastrointestinal hemorrhage, unspecified (principal)
CPT/HCPCS: 96374; 36430; 82962; 86850; 86900; 86901; 86920; 86922; P9016; J1940

== ENCOUNTER 2022-09-15 14:44 | Day surgery (SDC) | payer MEDICARE, OTHER, SELFPAY ==
[2022-09-15 15:12] VITALS: BP 99/73; PULSE 71; RESP 16; TEMP 36.1; O2SAT 96; BMI 48.2
[2022-09-15] MEDS: Lactated Ringers 1,000 ML 15 ML IV (15:21)
[2022-09-15 15:51] LABS: Bedside Glucose 117 mg/dL (74-106)
--- NOTE | 2022-09-15 16:48 | HP.PCM_ITS ---
History and Physical Date of Admission: 09/15/22 JORDYN ABEL, is a 71 F with a past medical history of morbid obesity, diastolic heart failure with ejection fraction of 35%, type 2 diabetes, hyperlipidemia, hypertension and COPD on 2 to 4 L of oxygen at baseline. She initially presented to an outside hospital with worsening abdominal distention, abdominal pain. She underwent an upper endoscopy and was discovered to have ischemic injury in her stomach and duodenum. 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 She underwent an emergent thrombectomy by vascular surgery. She was placed on heparin therapy and transition to Eliquis. Because of her history of CAD she was taking 81 mg of aspirin prior to her being on Eliquis. Also she was given heparin prior to her undergone thrombectomy. During her hospital stay she was also diagnosed with septic shock secondary to gram-negative bacteremia. From the septic shock she developed acute prerenal azotemia resulting in the need for temporary renal replacement therapy. She was able to be transition off of renal replacement therapy. She was transferred to the TCU. Since being in the TCU her hemoglobin has decreased and she has been, little bit more short of breath. I was consulted and regarding the patient's anemia. [facility] Medical History (Updated 08/31/22 @ 18:[address] 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 Restless leg syndrome Septic shock Severe pulmonary hypertension Type 2 diabetes mellitus Home Medications albuterol 90 mcg/actuation aerosol inhaler 108 mcg inhalation Q6H PRN SOB, wheezing 08/19/22 [History Last Taken Unknown] allopurinol 100 mg tablet 100 mg PO DAILY Gout 08/19/22 [History Last Taken Unknown] apixaban 5 mg tablet 5 mg PO BID Anticoagulant 08/19/22 [History Last Taken 08/19/22] atorvastatin 40 mg tablet 40 mg PO .qevening Cholesterol 08/19/22 [History Last Taken 08/18/22] cholecalciferol (vitamin D3) 25 mcg (1,000 unit) capsule 25 mcg PO DAILY Supplement 08/19/22 [History Last Taken Unknown] clonazepam 0.5 mg tablet 0.25 mg PO QHS Sleep, anxiety 08/19/22 [History Last Taken 08/18/22] clopidogrel 75 mg tablet 75 mg PO DAILY Anticoagulant 08/19/22 [History Last Taken 08/19/22] ezetimibe 10 mg tablet 10 mg PO .qevening Diabetes 08/19/22 [History Last Taken Unknown] ferrous sulfate 325 mg (65 mg iron) tablet 325 mg PO QODAY Supplement 08/19/22 [History Last Taken 08/19/22] hydralazine 20 mg/mL injection solution 10 mg IV Q6H PRN hypertension 08/19/22 [History Last Taken Unknown] insulin glargine 100 unit/mL (3 mL) subcutaneous pen (Lantus Solostar U-100 Insulin) 10 unit subcut .qAM Diabetes 08/19/22 [History Last Taken 08/19/22] melatonin 3 mg tablet 3 mg PO QHS insomnia 08/19/22 [History Last Taken 08/18/22] metoprolol succinate 50 mg tablet,extended release 24 hr 50 mg PO DAILY Blood pressure 08/19/22 [History Last Taken 08/19/22] midodrine 2.5 mg tablet 2.5 mg PO DAILY PRN low blood pressure 08/19/22 [History Last Taken 08/17/22] nystatin 100,000 unit/gram topical cream 1 applic topical BID excoriation 08/19/22 [History Last Taken 08/19/22] pantoprazole 40 mg tablet,delayed release 40 mg PO DAILY Stomach 08/19/22 [History Last Taken 08/19/22] paroxetine HCl 20 mg tablet 20 mg PO DAILY Anxiety 08/19/22 [History Last Taken 08/19/22] ropinirole 0.25 mg tablet 0.75 mg PO BID Restless legs 08/19/22 [History Last Taken 08/19/22] thiamine mononitrate (vit B1) 100 mg tablet 100 mg PO DAILY Supplement 08/19/22 [History Last Taken 08/19/22] tiotropium bromide 18 mcg capsule with inhalation device (Spiriva with HandiHaler) 1 cap inhalation DAILY SOB 08/19/22 [History Last Taken 08/19/22] torsemide 10 mg tablet 10 mg PO DAILY PRN Diuretic 08/19/22 [History Last Taken 08/16/22] Allergy/AdvReac Type Severity Reaction Status Date / Time Penicillins Allergy Hives Verified 04/22/20 09:31 Family History (Updated 08/20/22 @ 07:[address] Lencho Payan MD) Father , Head trauma. No problems noted. Mother , at 93. DiabetesBrother , at 71. Alzheimer diseaseSister , at 67 of Stone disease No problems noted. Sister Heart disease Surgical History (Updated 08/19/22 @ 22:[address] Lencho Payan MD) History of laparotomy Social History (Updated 08/19/22 @ 22:[address] Lencho Payan MD) household members: spouse Smoking Status: Former smoker Tobacco: How many years used: 30 how long ago did patient quit smokin alcohol intake: never substance use type: does not use ROS Constitutional Constitutional: Denies chills, fever(s) or weight gain ENT HEENT: Denies headache(s), nasal congestion or nasal discharge Cardiovascular Cardiovascular: Denies chest pain or palpitations Respiratory/Chest Respiratory/Chest: Denies cough, excessive phlegm production or shortness of breath with exertion Gastrointestinal Gastrointestinal: Denies abdominal pain, nausea or vomiting Genitourinary Genitourinary: Denies dysuria Musculoskeletal Musculoskeletal: Denies joint pain or joint swelling Integumentary Integumentary: Denies rash or wounds Neurologic Neurologic: Denies focal weakness, numbness or tingling Psychiatric Psychiatric: Denies anxiety, auditory hallucinations, depression, homicidal ideation or suicidal ideation Physical Exam Const alert General Appearance: cooperative HEENT normocephalic Eyes PERRL and EOMs intact bilaterally Neck supple, no JVD and no carotid bruits Resp normal respiratory effort, normal air movement and clear to auscultation bilaterally Cardio regular rate and regular rhythm GI normal to inspection, nondistended, normoactive bowel sounds, non-tender and non-distended GI Narrative: Midline incision clean, dry, intact. Extremity normal capillary refill General Extremity: Negative for edema Skin no rashes or lesions noted General Skin Exam: no breakdown Psych affect normal Appearance: appropriate Lab / Micro Data 08/30/22 06:45 08/28/22 05:14 Labs: Laboratory Results - last 24 hr 08/30/22 06:45: Retic Count 4.47 H, Immature Retic Fraction 30.60 H, Retic Hgb Equivalent 30.9, Iron 29 L, TIBC 273, Iron Saturation 10.6 L, Ferritin 115 08/30/22 21:29: POC Glucose 130 H 08/31/22 06:08: POC Glucose 132 H 08/31/22 10:45: POC Glucose 187 H 08/31/22 16:26: POC Glucose 152 H Micro: Microbiology 08/28/22 15:50 Urine, Catheterized Urine Culture - Final Klebsiella pneumoniae sp pneum Escherichia coli Assessment & Plan Assessment/Plan (1) Anemia: PLAN: Anemia chronic disease secondary to multiple comorbidities with CHF and recent SMA thrombosis with thrombectomy. She is currently on anticoagulation. She should undergo an upper endoscopy with upper tract. She also takes vitamin C and pramipexole, clopidogrel for her congestive heart failure. The patient and the patient's agreed to undergo upper endoscopy. They were explained alternatives, risk, benefits include not withstanding bleeding, infection, sepsis, perforation, need for emergent surgery . She will have an ASA of 3. I have examined the patient and the H&P has been reviewed. There are no clinical changes since date of exam.
[2022-09-15 17:11] VITALS: BP 137/63; BP 99/73; PULSE 69; RESP 16; TEMP 36.8; O2SAT 92
[2022-09-15 17:14] VITALS: BP 140/66; BP 99/73; PULSE 67; RESP 16; O2SAT 91
--- NOTE | 2022-09-15 17:18 | OP.CCLET_ITS ---
09/15/2022 Aliya Kessler Do Re : Upper GI endoscopy procedure for Anel Sharp Dear Dr. Kessler This procedure was performed on Thursday, September 15, 2022. My impressions and recommendations are as follows: Impressions : - Normal esophagus. - Small hiatal hernia. - One bleeding angiodysplastic lesion in the stomach. Treated with a heater probe. - Non-bleeding gastric ulcer with no stigmata of bleeding. - No gross lesions in the second portion of the duodenum. - No specimens collected. Recommendations : - Return patient to referring hospital for ongoing care. - Resume regular diet. - Continue present medications. My findings are described in the full procedure note, which is enclosed. If I can be of further assistance, please feel free to contact me at . Sincerely, Catrachito Resendez, 09/15/2022 5:18:04 PM This report has been signed electronically.
--- NOTE | 2022-09-15 17:18 | OP.EGD_ITS ---
Patient Name: Anel Sharp Procedure Date: 09/15/2022 4:38 PM Date of : 1950 Age: 71 Procedure: Upper GI endoscopy Indications: Iron deficiency anemia Providers: Catrachito Resendez DO Referring MD: Catrachito Resendez DO Medicines: Monitored Anesthesia Care Patient Profile: This is a 71 year old female. Refer to note in patient chart for documentation of history and physical. Patient has symptoms of chronic nausea. Complications: No immediate complications. Procedure: Pre-Anesthesia Assessment: - Prior to the procedure, a History and Physical was performed, and patient medications and allergies were reviewed. The risks and benefits of the procedure and the sedation options and risks were discussed with the patient. All questions were answered and informed consent was obtained. Patient identification and proposed procedure were verified by the physician. Mental Status Examination: normal. Respiratory Examination: clear to auscultation. Prophylactic Antibiotics: The patient does not require prophylactic antibiotics. Prior Anticoagulants: The patient has taken no previous anticoagulant or antiplatelet agents. ASA Grade Assessment: II - A patient with mild systemic disease. After reviewing the risks and benefits, the patient was deemed in satisfactory condition to undergo the procedure. The anesthesia plan was to use monitored anesthesia care (MAC). Immediately prior to administration of medications, the patient was re-assessed for adequacy to receive sedatives. The heart rate, respiratory rate, oxygen saturations, blood pressure, adequacy of pulmonary ventilation, and response to care were monitored throughout the procedure. The physical status of the patient was re-assessed after the procedure. After obtaining informed consent, the endoscope was passed under direct vision. Throughout the procedure, the patient's blood pressure, pulse, and oxygen saturations were monitored continuously. The Endoscope was introduced through the mouth, and advanced to the second part of duodenum. The upper GI endoscopy was accomplished without difficulty. The patient tolerated the procedure well. Scope In: 4:54:53 PM Scope Out: 5:03:45 PM Total Procedure Duration Time 0 hours 8 minutes 52 seconds Findings: The examined esophagus was normal. A small hiatal hernia was present. One 5 mm bleeding angiodysplastic lesion was found in the cardia. Coagulation for hemostasis using heater probe was successful. Estimated blood loss was minimal. One non-bleeding linear gastric ulcer with no stigmata of bleeding was found in the gastric body. The lesion was 6 mm in largest dimension. Extrinsic bulge was seen in his stomach. No gross lesions were noted in the second portion of the duodenum. Impression: - Normal esophagus. - Small hiatal hernia. - One bleeding angiodysplastic lesion in the stomach. Treated with a heater probe. - Non-bleeding gastric ulcer with no stigmata of bleeding. - No gross lesions in the second portion of the duodenum. - No specimens collected. Recommendation: - Return patient to referring hospital for ongoing care. - Resume regular diet. - Continue present medications. Procedure Code(s): --- Professional --- 69866, Esophagogastroduodenoscopy, flexible, transoral; with control of bleeding, any method CPT copyright 2017 [employer]. All rights reserved. The codes documented in this report are preliminary and upon surgical coder review may be revised to meet current compliance requirements. Catrachito Resendez DO 09/15/2022 5:18:04 PM This report has been signed electronically. Number of Addenda: 0 Note Initiated On: 09/15/2022 4:38 PM
[2022-09-15 17:20] VITALS: BP 129/58; BP 99/73; PULSE 65; RESP 16; O2SAT 97
[2022-09-15 17:23] VITALS: BP 130/62; BP 99/73; PULSE 65; RESP 16; O2SAT 99
[2022-09-15 17:41] VITALS: BP 99/73
== END 2022-09-15 17:42 | disposition home or self-care (01) ==
LOC: SDC 14:45 → AC 14:47
PROVIDERS: PCP Family Medicine; Referring Provider Internal Medicine Gastroenterology; Visit Provider Internal Medicine Gastroenterology
PROC: 0DJ08ZZ Inspection of Upper Intestinal Tract, Via Natural or Artificial Opening Endoscopic (ICD-10-PCS; CPT 43235; principal; 2022-09-15 15:40)
DX: K31.811 Angiodysplasia of stomach and duodenum with bleeding (principal); J44.9 Chronic obstructive pulmonary disease, unspecified; I11.0 Hypertensive heart disease with heart failure; I50.32 Chronic diastolic (congestive) heart failure; E66.01 Morbid (severe) obesity due to excess calories; Z68.42 Body mass index [BMI] 45.0-49.9, adult; E11.9 Type 2 diabetes mellitus without complications; Z79.4 Long term (current) use of insulin; K25.9 Gastric ulcer, unspecified as acute or chronic, without hemorrhage or perforation; M10.9 Gout, unspecified; D64.9 Anemia, unspecified; K44.9 Diaphragmatic hernia without obstruction or gangrene; E78.5 Hyperlipidemia, unspecified; Z99.81 Dependence on supplemental oxygen; Z79.01 Long term (current) use of anticoagulants; Z79.02 Long term (current) use of antithrombotics/antiplatelets; Z87.891 Personal history of nicotine dependence
CPT/HCPCS: 43255; J7120; 74177; 80048; 82962; 83605; 85025; 85610; 85730; 86850; 86900; 86901; 96360; 99282; J7030; J7040; Q9967; A4216; J2405

== ENCOUNTER 2022-09-15 21:51 | Emergency (ER) | payer MEDICARE, OTHER, SELFPAY ==
[2022-09-15 21:55] VITALS: BP 93/71; PULSE 75; RESP 16; TEMP 36.7; O2SAT 91; BMI 50.1
[2022-09-15 22:10] VITALS: BP 93/71; PULSE 75; RESP 17; O2SAT 93
[2022-09-15 22:52] LABS: Absolute Lymphocyte Count 1.09 X10^3/uL (0.83-4.51); Absolute Neutrophil Count 4.4 X10^3/uL (2.0-7.7); Basophil# 0.02 X10^3/uL; Basophil% 0.3 % (0-1); Eosinophil# 0.09 X10^3/uL; Eosinophils% 1.5 % (0-5); Hemoglobin 8.9 g/dL (12.0-15.0); Lymphocyte # 1.09 X10^3/ul (0.83-4.51); Lymphocyte % 17.7 % (19-41); Mean Corp Hgb Conc 29.7 g/dL (32-36); Mean Corpuscular Volume 97.7 fL (81-99); Mean Platelet Vol. 10.9 fl (6.2-12.0); Monocyte# 0.58 X10^3/uL; Monocyte% 9.4 % (0-10); NRBC Flagged by Analyzer 0 % (0-5); Neutrophil # 4.35 X10^3/uL (2.7-7.7); Neutrophil % 70.8 % (47-70); Platelet Count 261 K/mm3 (150-450); RBC Distribution Width CV 17.4 % (11.6-14.6); RBC Distribution Width SD 61.7 fl (35.1-43.9); Red Blood Count 3.07 M/mm3 (4.2-5.4); White Blood Count 6.2 K/mm3 (4.4-11.0)
[2022-09-15 23:02] LABS: Partial Thromboplast Time 28.1 Seconds (24.1-36.2)
[2022-09-15 23:07] LABS: Anion Gap 6 (5-15); BUN 22 mg/dL (7-18); BUN/Creat Ratio 18.6 RATIO (10-20); Calcium,Total 8.9 mg/dL (8.5-10.1); Chloride 108 mmol/L (98-107); Creatinine, Serum 1.18 mg/dL (0.55-1.02); EST Glomerular Filtration Rate 48 mL/min (>60); Est Glom Filt Rate - Afr Amer 58 mL/min (>60); Estimated Creatinine Clearance 33.58 ml/min; Glucose 165 mg/dL (74-106); Sodium Level 140 mmol/L (136-145)
[2022-09-15 23:12] LABS: Lactic Acid 1.1 mmol/L (0.4-1.9)
--- NOTE | 2022-09-15 23:30 | EX.ED.DYSGE1 ---
HPI History of Present Illness Chief Complaint: General Illness [facility] Medical History (Updated 09/15/22 @ 23:[address] 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 On home oxygen therapy Osteoporosis Restless leg syndrome Septic shock Severe pulmonary hypertension Type 2 diabetes mellitus Home Medications albuterol 90 mcg/actuation aerosol inhaler 108 mcg inhalation Q6H PRN SOB, wheezing 08/19/22 [History Last Taken 09/14/22] allopurinol 100 mg tablet 100 mg PO DAILY Gout 08/19/22 [History Last Taken 09/14/22] apixaban 5 mg tablet 5 mg PO BID Anticoagulant 08/19/22 [History Last Taken 09/10/22] atorvastatin 40 mg tablet 40 mg PO .qevening Cholesterol 08/19/22 [History Last Taken 09/14/22] cholecalciferol (vitamin D3) 25 mcg (1,000 unit) capsule 25 mcg PO DAILY Supplement 08/19/22 [History Last Taken 09/14/22] clonazepam 0.5 mg tablet 0.25 mg PO QHS Sleep, anxiety 08/19/22 [History Last Taken 09/14/22] clopidogrel 75 mg tablet 75 mg PO DAILY Anticoagulant 08/19/22 [History Last Taken 09/10/22] ezetimibe 10 mg tablet 10 mg PO .qevening Diabetes 08/19/22 [History Last Taken 09/14/22] ferrous sulfate 325 mg (65 mg iron) tablet 325 mg PO QODAY Supplement 08/19/22 [History Last Taken 09/14/22] hydralazine 20 mg/mL injection solution 10 mg IV Q6H PRN hypertension 08/19/22 [History Last Taken Unknown] insulin glargine 100 unit/mL (3 mL) subcutaneous pen (Lantus Solostar U-100 Insulin) 10 unit subcut .qAM Diabetes 08/19/22 [History Last Taken 09/14/22] melatonin 3 mg tablet 3 mg PO QHS insomnia 08/19/22 [History Last Taken 09/14/22] metoprolol succinate 50 mg tablet,extended release 24 hr 50 mg PO DAILY Blood pressure 08/19/22 [History Last Taken 09/14/22] midodrine 2.5 mg tablet 2.5 mg PO DAILY PRN low blood pressure 08/19/22 [History Last Taken 08/17/22] nystatin 100,000 unit/gram topical cream 1 applic topical BID excoriation 08/19/22 [History Last Taken 09/14/22] pantoprazole 40 mg tablet,delayed release 40 mg PO DAILY Stomach 08/19/22 [History Last Taken 09/14/22] paroxetine HCl 20 mg tablet 20 mg PO DAILY Anxiety 08/19/22 [History Last Taken 09/14/22] ropinirole 0.25 mg tablet 0.75 mg PO BID Restless legs 08/19/22 [History Last Taken 09/14/22] thiamine mononitrate (vit B1) 100 mg tablet 100 mg PO DAILY Supplement 08/19/22 [History Last Taken 09/14/22] tiotropium bromide 18 mcg capsule with inhalation device (Spiriva with HandiHaler) 1 cap inhalation DAILY SOB 08/19/22 [History Last Taken 09/14/22] torsemide 10 mg tablet 10 mg PO DAILY PRN Diuretic 08/19/22 [History Last Taken 08/16/22] Allergy/AdvReac Type Severity Reaction Status Date / Time Penicillins Allergy Hives Verified 09/15/22 15:11 Family History (Updated 08/20/22 @ 07:[address] Lencho Payan MD) Father , Head trauma. No problems noted. Mother , at 93. Diabetes Brother , at 71. Alzheimer disease Sister , at 67 of Stone disease No problems noted. Sister Heart disease Surgical History History of laparotomy Social History (Updated 08/19/22 @ 22:[address] Lencho Payan MD) household members: spouse Smoking Status: Former smoker Tobacco: How many years used: 30 how long ago did patient quit smokin alcohol intake: never substance use type: does not use EXAM Physical Exam Const Vital Signs: 09/15/22 21:55 09/15/22 22:04 09/15/22 22:10 Temperature 98.0 F Temperature Source Oral Pulse Rate 75 75 Respiratory Rate 16 17 Respiratory Pattern Normal Blood Pressure 93/71 93/71 Blood Pressure Mean 78 78 Pulse Ox 91 93 Oxygen Delivery Method Nasal Cannula Nasal Cannula Oxygen Flow Rate (L/min) 4 4 MDM MDM MDM Narrative Medical decision making narrative: Patient presents to the emergency department from transitional care unit at the request of core winding operator to performed an EGD on the patient and then had a CT scan of the abdomen pelvis ordered which showed findings suspicious for acute ischemia infarcts involving the spleen upper mesentery and left retroperitoneal fat. On arrival to the emergency department patient has no complaints and has no abdominal pain or back pain. IV line was established. CBC with differential obtained showed a white count of 6.2 with a hemoglobin of 8.9 platelet count of 261. Lactate was normal at 1.1. Chemistries unremarkable. I discussed case with Dr. Bowman-vascular surgeon. He was able to evaluate the patient CT scan and review some of the old records. He felt that if her white blood cell count was normal and lactate was normal and she was not having any symptoms that she did not need any type of acute intervention and this may be sequela of her disease for which she received treatment at [facility] 2 months ago. I discussed case with core winding operator Dr. Resendez as well to inform him of our findings in the emergency department as well as my discussion with vascular surgery. Patient will be discharged back to transitional care unit in stable condition. Also on CT was evidence of a complex adnexal cyst but could not rule out malignancy and radiology recommended correlation with pelvic ultrasound. We will make the transitional care unit aware that patient will need a pelvic ultrasound to evaluate this area further. Patient did receive 500 cc fluid bolus on arrival. Her repeat blood pressure on my evaluation of patient was 131 systolic. Lab Data Attestation: I reviewed the patient's lab results. Labs: Laboratory Results - last 24 hr 09/15/22 22:35 WBC 6.2 RBC 3.07 L Hgb 8.9 L Hct 30.0 L MCV 97.7 MCH 29.0 MCHC 29.7 L RDW Std Deviation 61.7 H RDW Coeff of [place]az 17.4 H Plt Count 261 MPV 10.9 Immature Gran % (Auto) 0.300 Neut % (Auto) 70.8 H Lymph % (Auto) 17.7 L [place] % (Auto) 9.4 Eos % (Auto) 1.5 Baso % (Auto) 0.3 Absolute Neuts (auto) 4.4 Absolute Lymphs (auto) 1.09 Nucleated RBC % 0 PT 15.0 H INR 1.2 APTT 28.1 Sodium 140 Potassium 4.0 Chloride 108 H Carbon Dioxide 26.0 Anion Gap 6 BUN 22 H Creatinine 1.18 H Estim Creat Clear Calc 33.58 Est GFR (MDRD) Af Amer 58 L Est GFR (MDRD) Non-Af 48 L BUN/Creatinine Ratio 18.6 Glucose 165 H Lactic Acid 1.1 Calcium 8.9 Discharge Plan Triage Chief Complaint: General Illness ED Provider: Vicente Bell Dx/Rx/DC Orders Clinical Impression: Adnexal cyst, Splenic infarction Instructions: Arterial Occlusion Acute Prescriptions: No Action allopurinol 100 mg tablet 100 mg PO DAILY atorvastatin 40 mg tablet 40 mg PO .qevening ezetimibe 10 mg tablet 10 mg PO .qevening Patient Comments: TAKE 1 TABLET BY MOUTH EVERY DAY FOR 90 DAYS insulin glargine [Lantus Solostar U-100 Insulin] 100 unit/mL (3 mL) insulin pen 10 unit SUBCUT .qAM metoprolol succinate 50 mg tablet extended release 24 hr 50 mg PO DAILY pantoprazole 40 mg tablet,delayed release (DR/EC) 40 mg PO DAILY Patient Comments: TAKE 1 TABLET BY MOUTH EVERY DAY FOR 90 DAYS paroxetine HCl 20 mg tablet 20 mg PO DAILY Spiriva with HandiHaler 18 mcg capsule, w/inhalation device 1 cap INHALATION DAILY albuterol 90 mcg/actuation aerosol 108 mcg inhalation Q6H PRN apixaban 5 mg tablet 5 mg PO BID cholecalciferol (vitamin D3) 25 mcg (1,000 unit) capsule 25 mcg PO DAILY clonazepam 0.5 mg tablet 0.25 mg PO QHS Rx Instructions: administer 30 minutes before bedtime x 3 days clopidogrel 75 mg tablet 75 mg PO DAILY ferrous sulfate 325 mg (65 mg iron) tablet 325 mg PO QODAY hydralazine 20 mg/mL solution 10 mg IV Q6H PRN (Reason: hypertension) Rx Instructions: SBP>160 melatonin 3 mg tablet 3 mg PO QHS midodrine 2.5 mg tablet 2.5 mg PO DAILY PRN Rx Instructions: do not give last dose of day after 6PM or within 4 hrs of bedtime, for SBP<100 nystatin 100,000 unit/gram cream 1 applic topical BID Rx Instructions: Apply to affected area ropinirole 0.25 mg tablet 0.75 mg PO BID thiamine mononitrate (vit B1) 100 mg tablet 100 mg PO DAILY torsemide 10 mg tablet 10 mg PO DAILY PRN (Reason: Diuretic) Rx Instructions: Administer if weight increases 5lbs from baseline, if there is increasing O2 need, or if obvious worsened bilateral lower extremity edema. Primary Care Provider: Aliya Kessler Referrals: Aliya Kessler, [Primary Care Provider] - Disposition Disposition: Home, Self Care
[2022-09-15 23:35] LABS: International Normalized Ratio 1.2
[2022-09-16] VITALS: RESP 22
== END 2022-09-16 00:01 | disposition home or self-care (01) ==
PROVIDERS: Emergency Provider Emergency Medicine; PCP Family Medicine; Visit Provider Emergency Medicine
DX: D73.5 Infarction of spleen (principal); J44.9 Chronic obstructive pulmonary disease, unspecified; I13.0 Hypertensive heart and chronic kidney disease with heart failure and stage 1 through stage 4 chronic kidney disease, or unspecified chronic kidney disease; I50.32 Chronic diastolic (congestive) heart failure; E11.22 Type 2 diabetes mellitus with diabetic chronic kidney disease; E66.01 Morbid (severe) obesity due to excess calories; Z68.42 Body mass index [BMI] 45.0-49.9, adult; Z79.4 Long term (current) use of insulin; Z87.891 Personal history of nicotine dependence; E78.5 Hyperlipidemia, unspecified; K31.811 Angiodysplasia of stomach and duodenum with bleeding; K25.9 Gastric ulcer, unspecified as acute or chronic, without hemorrhage or perforation; M10.9 Gout, unspecified; K44.9 Diaphragmatic hernia without obstruction or gangrene; Z99.81 Dependence on supplemental oxygen; Z79.01 Long term (current) use of anticoagulants; K76.0 Fatty (change of) liver, not elsewhere classified; N18.9 Chronic kidney disease, unspecified; D63.1 Anemia in chronic kidney disease; N83.209 Unspecified ovarian cyst, unspecified side; R93.5 Abnormal findings on diagnostic imaging of other abdominal regions, including retroperitoneum; Z79.02 Long term (current) use of antithrombotics/antiplatelets
CPT/HCPCS: 43255; 74177; 80048; 82962; 83605; 85025; 85610; 85730; 86850; 86900; 86901; 96360; 99282; J7030; J7040; J7120; Q9967; A4216; J2405

== ENCOUNTER → 2022-09-15 | Outpatient (CLI) | payer MEDICARE, OTHER, SELFPAY ==
--- NOTE | 2022-09-15 18:00 | CT_ITS ---
We are attempting to reach an attending provider to discuss findings. An addendum with communication details will be sent when the communication is complete. STUDY: CT ABDOMEN AND PELVIS WITH CONTRAST REASON FOR EXAM: Female, 71 years old. PAIN RADIATION DOSAGE (If Supplied By Facility): CTDIvol = ( 38.62 ) mGy, DLP = ( 1284.71 ) mGycm TECHNIQUE: IV 9 2 1 mL Isovue-370 was administered. Transaxial images were obtained from the dome of the diaphragm to the symphysis pubis. Multiplanar coronal and sagittal images were reformatted. Individualized Dose Optimization Techniques Were Used For This CT. COMPARISON: None FINDINGS: Chronic disease of the lung bases. The visualized portions of the heart are within normal limits. Hypoenhancing liver. Normal gallbladder and extrahepatic biliary system. Multifocal splenic wedge-shaped hypoenhancement. Normal pancreas. Normal bilateral adrenal glands. Moderate sized hiatal hernia. Normal small intestine. Normal colon. The appendix is visualized and appears normal. Poor opacification of the celiac trunk. There is diffuse atherosclerotic calcification of the abdominal aorta, without a demonstrated aneurysm. There is masslike soft tissue thickening between left common iliac artery and psoas muscle. There is inflammatory stranding about the proximal SMA and upper SMV. Normal right kidney. Normal left kidney. Normal urinary bladder. 5.5 x 4.4 cm right adnexal cystic structure. Normal abdominal wall. Lower lumbar spine degenerative change. CT/Abdomen/Pelvis WITH Contrast IMPRESSION: Findings suspicious for acute ischemic infarcts involving the spleen, upper mesentery, and left retroperitoneal fat. Hepatic steatosis. Electronically Signed: Filemon Rivas MD at 21:01 EDT ,
== END | disposition home or self-care (01) ==
LOC: CT 18:08
PROVIDERS: PCP Family Medicine; Referring Provider Internal Medicine Gastroenterology; Visit Provider Internal Medicine Gastroenterology
DX: K76.0 Fatty (change of) liver, not elsewhere classified (principal)
CPT/HCPCS: 74177; Q9967

== ENCOUNTER → 2022-09-17 | Outpatient (CLI) | payer MEDICARE, OTHER, SELFPAY ==
--- NOTE | 2022-09-17 13:32 | MRI_ITS ---
EXAM: MR PELVIS WITHOUT AND WITH INTRAVENOUS CONTRAST CLINICAL INDICATION: RIGHT ADNEXAL MASS TECHNIQUE: Multiplanar and multisequence MR images of the pelvis without and with intravenous contrast. Magnetic field strength 1.5 T. CONTRAST: 24 cc of Clariscan IV. COMPARISON: No relevant prior studies available. FINDINGS: APPENDIX: Appendix not visualized. No evidence of acute appendicitis. INTRAPERITONEAL SPACE: Unremarkable. No ascites or other fluid collection. BLADDER: Unremarkable. OVARIES: Simple appearing cyst measuring 4.5 x 4.3 x 4.6 cm right adnexa posterior to the uterus. It demonstrates high signal on T2 and low signal on T1. It abuts the posterior aspect of the uterus but appears to be separate from the uterus. Normal appearing ovaries are not identified. UTERUS/CERVIX: Unremarkable. BONES/JOINTS: Unremarkable. No suspicious lytic or blastic abnormality. SOFT TISSUES: Unremarkable. No pelvic wall hernia. LYMPH NODES: Unremarkable. No enlarged lymph nodes. MRI/Pelvis W/WO Contrast IMPRESSION: Simple appearing cyst measuring 4.5 x 4.3 x 4.6 cm right adnexa adjacent to the uterus and sigmoid colon. Differential diagnosis includes a benign cyst of ovarian origin versus a mesenteric cyst. Recommend pelvic ultrasound follow-up in 6-12 months. Electronically Signed: Glenn Cortez MD at 4:19 EDT ,
== END | disposition home or self-care (01) ==
LOC: MRI 13:30
PROVIDERS: PCP Family Medicine; Referring Provider Family Medicine Geriatric Medicine; Visit Provider Family Medicine Geriatric Medicine
DX: N83.201 Unspecified ovarian cyst, right side (principal)
CPT/HCPCS: 72197; A9575; A4216